=== PATIENT | male | born 1950 | race Caucasian/White ===

== ENCOUNTER 2018-10-28 01:31 | Outpatient (RCR) | payer MEDICARE, SELFPAY ==
[2018-10-14] VITALS (9 sets, daily range): BP systolic 107–132; BP diastolic 66–77; PULSE 59–75; RESP 18; TEMP 36.3–36.8; O2SAT 95–99
[2018-10-14] MEDS: methylPREDNISolone SUCC 125 MG VIAL 100 MG IV (08:32)
[2018-10-14] MEDS: diphenhydrAMINE 50 MG/ML VIAL IV (08:33)
[2018-10-14] MEDS: Normal Saline Flush 10 ML SYR IVP (08:34)
[2018-10-28 07:47] VITALS: BP 123/65; PULSE 75; RESP 18; TEMP 35.6; O2SAT 94
[2018-10-28] MEDS: methylPREDNISolone SUCC 125 MG VIAL 100 MG IV (07:56)
[2018-10-28] MEDS: diphenhydrAMINE 50 MG/ML VIAL IV (07:56)
[2018-10-28] MEDS: Normal Saline Flush 10 ML SYR IVP (07:57)
[2018-10-28 08:15] VITALS: BP 112/74; PULSE 58; RESP 18; TEMP 36; O2SAT 98
[2018-10-28 08:45] VITALS: BP 108/74; PULSE 59; RESP 18; TEMP 36; O2SAT 98
[2018-10-28 09:15] VITALS: BP 108/77; PULSE 57; RESP 18; TEMP 36; O2SAT 98
[2018-10-28 09:45] VITALS: BP 110/75; PULSE 60; RESP 18; TEMP 36; O2SAT 98
== END 2018-10-30 23:59 | disposition home or self-care (01) ==
LOC: INF 01:31
PROVIDERS: PCP Emergency Medicine; Visit Provider Internal Medicine
DX: M06.9 Rheumatoid arthritis, unspecified (principal)
CPT/HCPCS: 96365; 96366; J1200; J2930; J9310

== ENCOUNTER 2019-03-13 02:40 | Outpatient (CLI) | payer MEDICARE, SELFPAY ==
[2019-03-13 13:06] LABS: Calculated LDL 126; Cholesterol 219 mg/dL (50-200); HDL Cholesterol 77 mg/dL (40-60); Triglyceride 84 mg/dL (30-150)
[2019-03-16 10:38] LABS: PSA, Screening 4.3 ng/ml (0-4.5)
== END 2019-03-13 03:00 ==
PROVIDERS: PCP Emergency Medicine; Visit Provider Emergency Medicine
DX: I25.10 Atherosclerotic heart disease of native coronary artery without angina pectoris (principal); Z12.5 Encounter for screening for malignant neoplasm of prostate
CPT/HCPCS: 36415; 80061; 83721; 84153

== ENCOUNTER 2019-04-28 01:16 | Outpatient (RCR) | payer MEDICARE, SELFPAY ==
[2019-04-14] MEDS: methylPREDNISolone SUCC 125 MG VIAL 100 MG IV (08:07)
[2019-04-14] MEDS: diphenhydrAMINE 50 MG/ML VIAL IV (08:08)
[2019-04-14] MEDS: Normal Saline Flush 10 ML SYR IVP (08:08)
[2019-04-14 08:49] VITALS: BP 116/73; PULSE 53; RESP 16; TEMP 36.6; O2SAT 98
[2019-04-14 09:25] VITALS: BP 116/71; PULSE 54; RESP 18; TEMP 36.3; O2SAT 99
[2019-04-14 10:01] VITALS: BP 116/70; PULSE 52; RESP 16; TEMP 36.6; O2SAT 94
[2019-04-14 10:15] VITALS: BP 119/68; PULSE 55; RESP 18; TEMP 36.4; O2SAT 99
[2019-04-14 11:55] VITALS: BP 119/75; PULSE 49; RESP 16; TEMP 36.6; O2SAT 98
[2019-04-14 12:31] VITALS: BP 122/77; PULSE 61; RESP 20; TEMP 36.6; O2SAT 100
[2019-04-28 07:48] VITALS: BP 123/77; PULSE 52; RESP 18; TEMP 36.9; O2SAT 99
[2019-04-28] MEDS: methylPREDNISolone SUCC 125 MG VIAL 100 MG IV (07:49)
[2019-04-28] MEDS: Normal Saline Flush 10 ML SYR IVP (07:49)
[2019-04-28] MEDS: diphenhydrAMINE 50 MG/ML VIAL IV (07:49)
[2019-04-28 08:15] VITALS: BP 126/72; PULSE 57; RESP 18; TEMP 36.6; O2SAT 100
[2019-04-28 08:50] VITALS: BP 111/69; PULSE 54; RESP 18; TEMP 36.6; O2SAT 99
[2019-04-28 09:22] VITALS: BP 111/73; PULSE 54; RESP 18; TEMP 36.6; O2SAT 99
[2019-04-28 09:59] VITALS: BP 118/72; PULSE 59; RESP 19; TEMP 36.6; O2SAT 99
[2019-04-28 11:31] VITALS: BP 105/63; PULSE 57; RESP 18; TEMP 36.5; O2SAT 99
== END 2019-04-29 23:59 | disposition home or self-care (01) ==
LOC: INF 01:16
PROVIDERS: PCP Emergency Medicine; Visit Provider Internal Medicine
DX: M06.9 Rheumatoid arthritis, unspecified (principal)
CPT/HCPCS: 96365; 96366; 96374; J1200; J2930; J9310

== ENCOUNTER 2019-09-18 07:00 | Outpatient (CLI) | payer MEDICARE, SELFPAY | END 2019-09-18 07:20 | PROVIDERS: PCP Emergency Medicine; Visit Provider Emergency Medicine | DX: R97.20 Elevated prostate specific antigen [PSA] (principal) | CPT/HCPCS: 36415; 84153 ==

== ENCOUNTER 2019-10-09 02:39 | Outpatient (CLI) | payer MEDICARE, SELFPAY ==
[2019-10-12 12:34] LABS: PSA, Diagnostic 5.9 ng/mL (0.0-4.5)
== END 2019-10-09 02:59 ==
PROVIDERS: PCP Emergency Medicine; Visit Provider Emergency Medicine
DX: C61 Malignant neoplasm of prostate (principal); R97.20 Elevated prostate specific antigen [PSA]
CPT/HCPCS: 36415; 84153

== ENCOUNTER → 2019-10-26 10:41 | Outpatient (BNVA) | payer MEDICARE, SELFPAY | PROVIDERS: PCP Emergency Medicine; Referring Provider Emergency Medicine; Visit Provider Nurse Practitioner Gerontology | DX: R97.20 Elevated prostate specific antigen [PSA] (principal); K64.8 Other hemorrhoids | CPT/HCPCS: 99204; 99215 ==

== ENCOUNTER → 2019-10-30 13:21 | Outpatient (BNVA) | payer MEDICARE, SELFPAY | PROVIDERS: PCP Emergency Medicine; Referring Provider Emergency Medicine; Visit Provider Physical Therapy Assistant | DX: K64.8 Other hemorrhoids (principal); J44.9 Chronic obstructive pulmonary disease, unspecified; F17.210 Nicotine dependence, cigarettes, uncomplicated; I10 Essential (primary) hypertension | CPT/HCPCS: 99213 ==

== ENCOUNTER 2019-11-02 02:32 | Outpatient (CLI) | payer MEDICARE, SELFPAY ==
[2019-11-03 09:59] LABS: PSA, Diagnostic 4.6 ng/mL (0.0-4.5)
== END 2019-11-02 02:52 ==
PROVIDERS: PCP Emergency Medicine; Visit Provider Nurse Practitioner Gerontology
DX: R97.20 Elevated prostate specific antigen [PSA] (principal)
CPT/HCPCS: 36415; 84153

== ENCOUNTER 2019-11-10 06:16 | Day surgery (SDC) | payer MEDICARE, SELFPAY ==
[2019-11-10 06:41] VITALS: BP 103/67; PULSE 112; RESP 12; TEMP 36.5; O2SAT 100
--- NOTE | 2019-11-10 07:20 | NUR.NOTE ---
C/O dizziness when standing. Negative orthostatic BP (104 to 98 sbp). HR rapid and irregular. Anesthesia made aware and in to evaluate. rapid a-fib noted on monitor. EKG done. IV access placed. Transfer to ER room 3 in progress. Denies chest pain or discomfort. Nursing Note:
--- NOTE | 2019-11-10 07:32 | NUR.NOTE ---
Transferred to ER. Report given to Josefina. Ex- in attendance. Nursing Note:
--- NOTE | 2019-11-10 07:32 | PDOC.ANES ---
Date of service: 11/10/19 Time of Service: 07:32 Anesthesia Note Report Anesthesia Note: Patient in DSU for scheduled exam under anesthesia. He states he has had some dizziness over the last week, He feels this is from his new medication flomax. He denies chest pain or shortness of breath, however has had moments where he is very dizzy/presyncopal, sweaty. He states he has also been adjusting his metoprolol dose down from 100mg as prescribed. Today he is alert, oriented again with an isolated complaint of dizziness,worse when standing. 3 lead attached showing rapid variable heart rate, 12 Lead ordered which shows rapid heart rate 120-170, atrial fib or a-flutter with variable conduction as he has a history of a-flutter with previous cardioversions/ablation. His procedure is postponed, IV established and ED made aware. Pt. transported to ER 3 for further workup.
== END 2019-11-10 07:17 | disposition home or self-care (01) ==
LOC: SUR 06:17
PROVIDERS: PCP Emergency Medicine; Visit Provider Surgery
DX: K62.5 Hemorrhage of anus and rectum (principal); Z53.09 Procedure and treatment not carried out because of other contraindication; R00.0 Tachycardia, unspecified; Y66 Nonadministration of surgical and medical care
CPT/HCPCS: J2001; J2250

== ENCOUNTER 2019-11-10 07:17 | Emergency (ER) | payer MEDICARE, SELFPAY ==
[2019-11-10] VITALS (47 sets, daily range): BP systolic 92–129; BP diastolic 56–97; PULSE 55–158; RESP 5–30; TEMP 36.7–36.9; O2SAT 95–99
--- NOTE | 2019-11-10 07:36 | W.ED.GENAD ---
Discharge Plan Disposition Patient Disposition: HOME Condition: Stable Discharge Details Chief Complaint: Palpitatns Clinical Impression: Atrial fibrillation Primary Care Provider: Yonathan Boggs ED Provider: Allan Turpin Home Meds and New Rx's Prescriptions: Continued aspirin [Ecotrin Low Strength] 81 MG tablet,delayed release (DR/EC) 81 mg PO DAILY RF: 0 calcium carbonate-vitamin D3 [Caltrate with Vitamin D3] 1 EACH tablet 1 ea PO DAILY RF: 0 Rituxan 10 MG/1 ML concentrate 0 IV q6 months RF: 0 FLEXERIL 10 MG tablet 10 mg PO BID PRNQty: 60 RF: 6 prednisone 5 MG tablet 2.5 mg PO DAILY RF: 0 clonazepam [Klonopin] 0.5 MG tablet 0.5 mg PO HS PRN Qty: 60 RF: 0 glucosam-chond ix-gbfrzp-vr ac 1 EACH capsule 1 ea PO DAILY RF: 0 metoprolol tartrate 100 mg tablet 100 mg PO BID Qty: 180 RF: 4 tamsulosin [Flomax] 0.4 mg capsule 0.4 mg PO DAILY Qty: 90 RF: 3 cannabidiol 100 mg/mL Solution 15 mg PO DAILY RF: 0 Discharge Instructions Instructions: Atrial Fibrillation (ED) Additional Instructions: Please contact your primary care physician to arrange follow-up. Call today. Please follow-up with cardiology. Call today for an appointment. Return to the ER for any worsening or new concerning symptoms. Referrals: Yonathan Boggs DO [Primary Care Provider] - Hermann Paz MD [MD CONSULTING PHYSICIAN] - Discharge Data Discharge Date/Time-TO BE ENTERED AT DEPARTURE: 11/10/19 10:08 Medical Decision Making <Cesar Sen MD - Last Filed: 11/10/19 20:02> Patient presents from day surgery with rapid A. fib. He has history of atrial fibrillation status post ablation. He is on metoprolol but no blood thinners. Unknown how long he has been in A. fib at this point. Initial pressure good. Second pressure little low at systolic of 95. Ordered for 500 mL bolus of LR. Will give a dose of IV Lopressor as well as his morning oral Lopressor. Will check laboratory studies. Patient will be signed over to oncoming physician, Dr. Turpin. ECG Data Attestation: I personally reviewed and interpreted this ECG (s) as follows: Prior ECG tracings: not available for review Interpretation: Atrial fibrillation at a rate of 120. Normal axis and intervals. Nonspecific ST changes likely rate related. No acute ST elevation. <Allan Turpin MD - Last Filed: 11/17/19 21:57> 8:00 --care signed out by Dr. Sen with plan to follow-up on labs and reassess patient for disposition. Please see Dr. Sen's documentation regarding ED presentation and course. 9:00 --labs reviewed and nondiagnostic. Electrolytes within normal limits. TSH normal. Troponin normal. Repeat ECG was reviewed and interpreted by me: Sinus rhythm 60 bpm, normal axis, low voltage in limb leads, single T wave inversion noted lead III, nondiagnostic. Patient is no longer in rapid A. fib. Blood pressure stable. Patient feeling well. Plan will be for outpatient follow-up with cardiology and primary care physician. --I called and spoke with the patient's primary care physician Dr. Boggs and discussed ED presentation and course with him. He will schedule follow-up with the patient. Plan will be to continue low-dose aspirin given internal hemorrhoids and blood-tinged mucus discharge with concern for increased bleeding with anticoagulation at this point. Disposition decision was made weighing the risks and benefits of hospitalization versus outpatient treatment, the risk for further decompensation, and the patient's wishes. The patient was stable and requested discharge. Prior to discharge, my usual and customary return precautions were reviewed with the patient - this included follow-up instructions and reason to return to the emergency department if condition worsens, does not improve as expected, or other new concerns arise. HPI <Cesar Sen MD - Last Filed: 11/10/19 20:02> General Date/Time Provider Initiated Documentation: 11/10/19 07:29. Limitations to Documentation: no limitations. Information obtained by: patient and RN/MD. HPI Narrative: Patient is brought to us from day surgery for evaluation of atrial fibrillation. Patient has history of same but underwent ablation back in 2011 and has never really had issues. He came in today for exam under anesthesia for hemorrhoids. He did not take his metoprolol this morning. He was found to be in rapid A. fib. He denies having any type of chest pain or pressure. He denies shortness of breath. He has had lightheadedness on and off over the weekend and almost passed out this morning but figured it was from not eating and drinking since midnight. He is on metoprolol 100 mg twice a day. He is not on blood thinners. IV and EKG were done in day surgery before transport to ED. Related Data Home Medications Medication Instructions Recorded Confirmed aspirin [Ecotrin Low Strength] 81 mg PO DAILY tab-cap 12/04/12 11/11/19 calcium carbonate-vitamin D3 1 ea PO DAILY 12/04/12 11/11/19 [Caltrate with Vitamin D3] Rituxan 0 IV q6 months vial 07/31/13 11/11/19 prednisone 2.5 mg PO DAILY tab-cap 10/21/15 11/11/19 clonazepam [Klonopin] 0.5 mg PO HS PRN #60 tab 08/02/16 11/11/19 glucosam-chond yz-ozaghe-mo ac 1 ea PO DAILY 02/05/18 11/11/19 metoprolol tartrate 100 mg tablet 100 mg PO BID #180 tab-cap 08/19/18 11/11/19 tamsulosin 0.4 mg capsule 0.4 mg PO DAILY #90 cap 11/03/19 11/11/19 cannabidiol 15 mg PO DAILY 11/06/19 11/11/19 Previous Rx's Medication Instructions Recorded metoprolol tartrate 100 mg tablet 100 mg PO BID #180 tab-cap 08/19/18 tamsulosin 0.4 mg capsule 0.4 mg PO DAILY #90 cap 11/03/19 Allergies Allergy/AdvReac Type Severity Reaction Status Date / Time terazosin AdvReac Intermediate Dizziness/L Verified 11/11/19 10:20 ightheade lisinopril AdvReac Mild COUGH Verified 11/11/19 10:20 atorvastatin AdvReac Unknown ?DIARRHEA Verified 11/11/19 10:20 Serotonin 5HT-3 Antagonists AdvReac Unknown Verified 11/11/19 10:20 sulfasalazine AdvReac Made RA Verified 11/11/19 10:20 worse General Stated Complaint: Palpitatns BETTY: 2 Review of Systems <Cesar Sen MD - Last Filed: 11/10/19 20:02> Narrative: 07/13 Review of Systems completed and is negative except as stated above in HPI (Systems reviewed: Const, Eyes, ENT, Resp, CV, GI, , MSK, Skin, Neuro) PFSH <Cesar Sen MD - Last Filed: 11/10/19 20:02> Medical History Alcohol abuse (Acute) heavy alcohol use-patient denies alcohol abuse. Atrial flutter (Acute) 01/07 STRESS TEST NEG 2011;Ablation BPH (benign prostatic hyperplasia) (Acute 03/29/15) Cervical radicular pain (Acute 05/21/14) Severe DJD with multilevel foraminal narrowing MRI 05/13 Chronic obstructive pulmonary disease (Acute 05/29/16) Patient denies having COPD. Chronic pain disorder (Acute 05/15/12) 10/08/17; CONTROLLED SUBSTANCE AGREEMENT 01/27/19 Contract no longer needed/cancelled per TB-kb Coronary atherosclerosis of [place] coronary vessel (Acute) a.STEMI (inf) b. RCA stent c. a.flutter Depressive disorder (Acute) situational Essential hypertension (Acute 07/30/13) Patient denies hx of HTN. States he's on Metoprolol for rate control. Hearing loss (Acute) A.S. Hx TIA/stroke w/o resid (Acute) Hyperlipidemia (Acute) Migraine with visual aura (Acute 03/29/15) Rheumatoid arthritis (Acute) Smoker (Acute) quit 09/04 Statin intolerance (Acute) Unilateral inguinal hernia (Acute) right Surgical History Colonoscopy - MAC 06/03; neg Hx of heart artery stent (Chronic) Stent 2006 Ablation 2011 rectal fistula repair vasc revision Vasectomy Family History (Updated 10/01/19 @ 13:48 by Dangelo Webb) Mother No problems noted. Father No problems noted. Brother No problems noted. Brother No problems noted. Brother No problems noted. Daughter No problems noted. Maternal Grandfather No problems noted. Paternal Grandfather No problems noted. Maternal Grandfather No problems noted. Paternal Grandfather No problems noted. Social History (Updated 11/11/19 @ 10:24 by Sarah Freedman RN) Smoking/Tobacco Use Status: Current-Occasional Tobacco Type: cigarettes Quit status: considering quitting Second Hand Exposure: Yes Alcohol Intake: current Alcohol Intake frequency: 3 or more drinks per day Alcohol type: beer Drug use: Rarely Substance use type: marijuana Caregiver/Support person: Yes Household members: none Housing: apartment Communication Needs: Hard of Hearing Do you need help understanding health information?: Never Pets and animals: No Sexually active: No Do you think of yourself as: straight/heterosexual Current gender identity: male What is your relationship status?: How often do you talk on the phone with friends or family?: decline to answer How often do you get together with friends or relatives?: decline to answer How often do you attend jainism or buddhist services?: decline to answer Do you belong to any clubs or organized social groups?: decline to answer Panel score (0-1 are the most socially isolated patients): 0 What type of physical activity do you participate in: none Chary/Zoroastrian: Declined Do you feel safe at home: Yes Do you feel safe in your relationship?: Yes Exam <Cesar Sen MD - Last Filed: 11/10/19 20:02> Narrative Exam Narrative: Vitals: Afebrile. Rapid heart rate with otherwise normal vitals and room air pulse oximetry. Const: WDWN male in NAD. HEENT: NC/AT. Normal facial exam. Eyes: Normal conjunctiva and sclera. Neck: Supple. Trachea midline. Lungs: Normal respiratory effort. Lungs are clear. Cor: IRR/IRR, tachy without murmur/gallop. Good radial pulses. GI: Soft. NT/ND. No guarding or rebound. Neuro: A+O x 3. Normal speech, mentation, gait. Cranial nerves II - XII grossly intact. No gross motor or sensory deficit. Ext: No C/C/E. Skin: Warm and dry without rash. Course <Cesar Sen MD - Last Filed: 11/10/19 20:02> Vital Signs Vital signs: Vital Signs Temperature 98.1 F 11/10/19 07:28 Pulse 141 H 11/10/19 07:28 Respiratory Rate 9 L 11/10/19 07:28 Blood Pressure 115/85 11/10/19 07:28 Pulse Oximetry 99 11/10/19 07:28 Temperature 98.1 F 11/10/19 07:28 Temperature Source Temporal Artery Scan 11/10/19 07:28 Pulse 141 H 11/10/19 07:28 Respiratory Rate 9 L 11/10/19 07:28 Respiratory Effort Non-Labored 11/10/19 07:32 Blood Pressure 115/85 11/10/19 07:28 Blood Pressure Position Sitting 11/10/19 07:28 Pulse Oximetry 99 11/10/19 07:28 Oxygen Delivery Method Room Air 11/10/19 07:28 Oxygen Flow Rate 0 11/10/19 07:28 Pain Level 0 11/10/19 07:28 Sign Out <Cesar Sen MD - Last Filed: 11/10/19 20:02> Sign Out Data: Sign Out Comment: Pending laboratory studies and response to metoprolol. Last updated by Cesar Sen MD at 11/10/19 08:00
[2019-11-10] MEDS: Metoprolol 50 MG TAB 100 MG PO (07:42)
[2019-11-10] MEDS: Lactated Ringers 500 ML IV (07:43)
[2019-11-10] MEDS: Metoprolol 5 MG/5 ML VIAL IVP (07:44)
[2019-11-10 08:09] LABS: Abs Immature Grans 0.04 k/cumm (0.0-0.09); Absolute Basophil Count 0.02 k/cumm (0.0-0.2); Absolute Eosinophil Count 0.07 k/cumm (0.0-0.7); Absolute Lymphocyte Count 1.67 k/cumm (1.2-3.4); Absolute Monocyte Count 1.21 k/cumm (0.11-0.7); Absolute Neutrophil Count 6.32 k/cumm (1.2-6.7); Basophils % 0.2; Eosinophils % 0.8; HCT 44.6 % (40.0-50.0); HGB 15.7 g/dL (13.5-17.5); Immature Grans % 0.4 %; Lymphocytes % 17.9; Mean Corp. HGB Concentration 35.2 g/dL (32.0-36.0); Mean Corpuscular Hemoglobin 32.9 pg (27.0-33.0); Mean Corpuscular Volume 93.5 fL (80-95); Mean Platelet Volume 9.6 fL (8.0-11.0); Neutrophils % 67.7; Platelet Count 300 x1000/uL (130-400); RBC 4.77 m/cumm (4.50-6.00); RBC Distribution Width 13.3 % (11.8-14.1); White Blood Cell Count 9.33 k/cumm (4.4-10.8)
[2019-11-10 08:29] LABS: ALT 34 U/L (16-63); AST 21 U/L (15-37); Albumin 3.4 g/dL (3.4-5.0); Alkaline Phosphatase 59 U/L (46-116); Anion Gap 9.5 mmol/L (3-11); BUN 17 mg/dL (7-18); Bilirubin, Total 0.5 mg/dL (0.2-1.0); CO2 27.5 mmol/L (21.0-32.0); CREATININE 1.18 mg/dL (0.70-1.30); Calcium 8.7 mg/dL (8.5-10.1); Chloride 106 mmol/L (98-107); Glucose 107 mg/dL (74-106); Magnesium 1.8 mg/dL (1.8-2.4); Potassium 4.2 mmol/L (3.5-5.1); Sodium 143 mmol/L (136-145); Total Protein 6.1 g/dL (6.4-8.2)
[2019-11-10 08:30] LABS: INR 0.9 (0.9-1.1); PTT Activated 21.6 sec (21.0-31.4); Prothrombin Time 9.5 sec (9.3-11.0)
[2019-11-10 08:33] LABS: Troponin I < 0.05 ng/Ml (<0.06)
[2019-11-10 08:37] LABS: TSH (W/Ref FT4) 3.08 uIU/mL (0.36-3.74)
[2019-11-10] MEDS: Aspirin 81 MG CHEW CH (09:08)
--- NOTE | 2019-11-10 10:39 | NUR.NOTE ---
Referral faxed to patient PCP Dr. Boggs and [facility] Dr. Paz.Nursing Note:
== END 2019-11-10 10:08 | disposition home or self-care (01) ==
PROVIDERS: Emergency Medicine; Emergency Provider Student in an Organized Health Care Education/Training Program; PCP Emergency Medicine
DX: I48.91 Unspecified atrial fibrillation; K64.8 Other hemorrhoids; J44.9 Chronic obstructive pulmonary disease, unspecified; F17.210 Nicotine dependence, cigarettes, uncomplicated; I10 Essential (primary) hypertension
CPT/HCPCS: 36415; 80053; 93005; 96361; 96374; 99284; 83735; 84443; 84484; 85025; 85610; 85730; 93010; 99285

== ENCOUNTER 2019-11-11 09:59 | Outpatient (CLI) | payer MEDICARE, SELFPAY | END 2019-11-11 10:19 | PROVIDERS: PCP Emergency Medicine; Visit Provider Internal Medicine Cardiovascular Disease | DX: I48.0 Paroxysmal atrial fibrillation (principal); I25.10 Atherosclerotic heart disease of native coronary artery without angina pectoris; I10 Essential (primary) hypertension | CPT/HCPCS: 99204; 99215 ==

== ENCOUNTER → 2019-11-23 15:21 | Outpatient (BNVA) | payer MEDICARE, SELFPAY | PROVIDERS: PCP Emergency Medicine; Referring Provider Emergency Medicine; Visit Provider Nurse Practitioner Gerontology | DX: R97.20 Elevated prostate specific antigen [PSA] (principal); N40.1 Benign prostatic hyperplasia with lower urinary tract symptoms; R30.0 Dysuria | CPT/HCPCS: 81003; 99213 ==

== ENCOUNTER 2019-12-24 01:25 | Outpatient (RCR) | payer MEDICARE, SELFPAY ==
[2019-12-24] VITALS (9 sets, daily range): BP systolic 142–165; BP diastolic 77–90; PULSE 45–63; RESP 18–19; TEMP 36–36.6; O2SAT 96–99
[2019-12-24] MEDS: methylPREDNISolone SUCC 125 MG VIAL 100 MG IVP (08:47)
[2019-12-24] MEDS: Normal Saline Flush 10 ML SYR IVP (08:48)
[2019-12-24] MEDS: diphenhydrAMINE 25 MG CAP PO (08:48)
== END 2019-12-29 23:59 | disposition home or self-care (01) ==
LOC: INF 01:25
PROVIDERS: PCP Emergency Medicine; Visit Provider Internal Medicine
DX: M06.9 Rheumatoid arthritis, unspecified (principal)
CPT/HCPCS: 96365; 96366; J2930; J9312

== ENCOUNTER → 2019-12-30 11:25 | Outpatient (BNVA) | payer MEDICARE, SELFPAY | PROVIDERS: PCP Emergency Medicine; Referring Provider Emergency Medicine; Visit Provider Nurse Practitioner Gerontology | DX: R97.20 Elevated prostate specific antigen [PSA] (principal); N40.0 Benign prostatic hyperplasia without lower urinary tract symptoms | CPT/HCPCS: 99213; 99442 ==

== ENCOUNTER 2020-01-07 03:17 | Outpatient (RCR) | payer MEDICARE, SELFPAY ==
[2020-01-07 08:43] VITALS: BP 121/72; PULSE 64; RESP 19; TEMP 36.5; O2SAT 95
[2020-01-07] MEDS: Normal Saline Flush 10 ML SYR IVP (08:50)
[2020-01-07] MEDS: diphenhydrAMINE 25 MG CAP PO (08:50)
[2020-01-07] MEDS: methylPREDNISolone SUCC 125 MG VIAL 100 MG IV (08:50)
[2020-01-07 09:04] VITALS: BP 115/75; PULSE 53; RESP 19; TEMP 37; O2SAT 97
[2020-01-07 09:34] VITALS: BP 108/70; PULSE 52; RESP 18; TEMP 37; O2SAT 99
[2020-01-07 10:04] VITALS: BP 105/66; PULSE 46; RESP 19; TEMP 36.4; O2SAT 99
== END 2020-01-28 23:59 | disposition home or self-care (01) ==
LOC: INF 03:17
PROVIDERS: PCP Emergency Medicine; Visit Provider Internal Medicine
DX: M06.9 Rheumatoid arthritis, unspecified (principal)
CPT/HCPCS: 96365; 96366; J2930; J9312

== ENCOUNTER 2020-01-20 09:27 | Outpatient (CLI) | payer MEDICARE, SELFPAY ==
[2020-01-22 08:50] LABS: COVID-19 RT-PCR Result Negative
== END 2020-01-20 09:47 ==
PROVIDERS: PCP Emergency Medicine; Visit Provider Surgery
DX: Z11.59 Encounter for screening for other viral diseases (principal); Z01.818 Encounter for other preprocedural examination
CPT/HCPCS: U0003

== ENCOUNTER → 2020-01-22 11:01 | Outpatient (BNVA) | payer MEDICARE, SELFPAY | PROVIDERS: PCP Emergency Medicine; Referring Provider Emergency Medicine; Visit Provider Surgery | DX: K62.89 Other specified diseases of anus and rectum (principal); J44.9 Chronic obstructive pulmonary disease, unspecified; F17.210 Nicotine dependence, cigarettes, uncomplicated | CPT/HCPCS: 99213 ==

== ENCOUNTER 2020-01-27 06:32 | Day surgery (SDC) | payer MEDICARE, SELFPAY ==
[2020-01-27 06:51] VITALS: BP 118/78; PULSE 58; RESP 18; TEMP 36.4
--- NOTE | 2020-01-27 06:51 | ROE_ITS ---
Date of service: 01/27/20 Time of Service: 08:22 Operative Note Operative Note DATE OF PROCEDURE: 01/27/20 PRE-OP DIAGNOSIS: Rectal pain and bleeding PROCEDURE: 1. Exam under anesthesia 2. Biopsy of rectal mass SURGEON: Payton Mckenzie ANESTHESIA: spinal ESTIMATED BLOOD LOSS: 5 PATHOLOGY: other (biopsy of rectal mass) COMPLICATIONS: None Patient was transported to: same day Patient's condition: stable Implants: None Indications: Mr. Johnson is a pleasant 69 year old male with a PMHx significant for internal hemorrhoids and a anal fistula who has been having increased pain and rectal bleeding for a few months now. We unfortunately had to postpone his surgery due to the COVID-19 Pandemic. He is now having increased pain and bleeding. He may also have a new fistula. He has an extensive Cardiac history with past AR (s/p cath and stents) as well as flutter s/p ablation. He now has Paroxismal A-fib. He is being followed by Cardiology. Recommended Exam under anesthesia with internal hemorrhoidectomy and possible fistulotomy Anesthesia discussed- recommend spinal and MAC as well as local with exparel/bupivocaine mix. Post-operative pain control with Lidocaine ointment, tylenol, ibuprofen and a few Oxycodons for 3 days. Sitz baths post-operatively as well. Risks, benefits, complications of the procedure were reviewed with him. Complications include but are not limited to bleeding, infection which can be severe and life-threatening. Injury to rectal sphincter with resulting incontinence, recurrence of the internal hemorrhoids and fistula and adverse reaction to medications were all discussed with him. Questions were entertained and answered to his satisfaction and he wished to proceed. No guarantees were given or implied Findings: Friable rectal mass at 5-7 o'clock. Measured about 2 cm Small external hemorrhoids Procedure Description: After informed consent was obtained the patient was taken to the operating room. Monitors were applied and a time out was done. The patients name, date of , procedure, allergies to medications and metal in their body was reviewed. A spinal anesthetic was done. He was placed in a prone position on the operating room table. The patient was then sedated. Tape was applied to his buttocks and his buttocks were . The area was then prepped with iodine. Exparel mixed 50/50 with 0.25% Bupivocaine was then injected around the rectum. Next a rectal exam was done. External exam revealed small hemorrhoids. Internal exam revealed a normal sphincter tone. Hard mass was palpated. The Anoscope was inserted and a 2.5 to 3 cm friable and hard mass was noted. It was located between 5 and 7 o'clock. The Ligasure was used to get a piece of the mass and sent for pathology. Some small internal hemorrhoids were noted as well There was some bleeding noted from the friable tissue. The Anoscope was removed and the rest of the exparel/bupivocaine mixture was injected circumferentially around the rectum. The area was cleaned and dried. The tape was removed. The patient was worked up and transferred to the [facility] and taken back to [facility] in stable condition. There were no immediate complications and the patient tolerated the procedure note.
--- NOTE | 2020-01-27 06:56 | W.PM.DSUDISC ---
Discharge Plan Disposition Patient Disposition: HOME Condition: Fair Discharge Details Reason For Visit: Exam under anesthesia, hemorrhoidectomy Attending Provider: Payton Mckenzie Primary Care Provider: Yonathan Boggs Home Meds and New Rx's Prescriptions: New lidocaine HCl 2 % jelly 1 applic TP QD-TID PRN (Reason: pain) Qty: 30 RF: 1 acetaminophen [Tylenol] 325 mg tablet 650 mg PO Q6H PRN (Reason: pain) Qty: 30 RF: 0 oxycodone 5 mg tablet 5 mg PO Q6H PRN (Reason: pain) Qty: 20 RF: 0 Continued naproxen 500 mg tablet 500 mg PO BID PRN (Reason: pain) Qty: 60 RF: 0 aspirin [Ecotrin Low Strength] 81 MG tablet,delayed release (DR/EC) 81 mg PO .EVERY OTHER DAY RF: 0 calcium carbonate-vitamin D3 [Caltrate with Vitamin D3] 1 EACH tablet 1 ea PO DAILY RF: 0 Rituxan 10 MG/1 ML concentrate 0 IV q6 months RF: 0 FLEXERIL 10 MG tablet 10 mg PO BID PRNQty: 60 RF: 6 prednisone 5 MG tablet 2.5 mg PO DAILY RF: 0 glucosam-chond kr-kfsdou-lm ac 1 EACH capsule 1 ea PO DAILY RF: 0 metoprolol tartrate 100 mg tablet 100 mg PO BID Qty: 180 RF: 4 cannabidiol 100 mg/mL solution 15 mg PO DAILY PRNRF: 0 clonazepam [Klonopin] 0.5 mg tablet 0.5 mg PO HS PRN PRNRF: 0 Discharge Instructions Instructions: Sitz Bath (GEN) Additional Instructions: Activity at Home after surgery: 1. Make sure you walk outside at least 4 times per day 2. You should be able to climb a flight of stairs 3. No driving while in pain or taking pain medications 4. No strenuous activity or heavy lifting for 2 weeks Diet, Nutrition, & wound healin. Avoid alcohol until after you are recovered from your surgery 2. Make sure to eat plenty of lean protein (meat, fish, eggs, cottage cheese, beans) 3. Eat a variety of fruits and vegetables. Eat plenty of high fiber foods to avoid constipation. 4. Drink plenty of liquids to stay hydrated and avoid constipation Pain Medications: 1. Tylenol 650 mg every 6 hours as needed 2. Naproxen 500 mg 2 x a day 3. Oxycodon 5 mg every 6 hours as needed for severe pain 4. Lidocaine ointment- apply small amount to rectal area 3 to 4 times a day as needed For Constipation: 1. MiraLax daily as needed for constipation Other: 1. You may shower daily. Do not scrub the incisions 2. Sitz baths every 4 hours as needed. Wound Care: 1. Keep area clean with sitz bath Please call our office if you develop: 1. Fevers >101.5 2. Nausea or Vomiting 3. Worsening pain 4. Redness and thick discharge from the wounds If after hours please call the Hospital at and ask to speak to the on-call surgeon Findings: There was a small rectal mass that is bleeding. I removed most of it for diagnoses. This may be cancerous. I will see you next week on Saturday and I should have the results and then we will discuss further treatment. Regardless of the diagnoses you will need a colonoscopy in the next 2 weeks. Referrals: Payton Mckenzie MD [ [facility] STAFF PHYSICIAN] - 02/01/20 8:00 am Activity:: Activity as Tolerated Diet:: As Tolerated Discharge Orders Discharge Orders: Discharge Order (Routine); Ordered 01/27/20 Ordered By: Payton Mckenzie DS: Diagnosis Discharge Diagnosis (1) External hemorrhoids: Status: Acute (2) Rectal mass: Status: Acute
[2020-01-27] MEDS: Celecoxib 200 MG CAP PO (07:10)
[2020-01-27] MEDS: Acetaminophen 500 MG TAB 1000 MG PO (07:10)
[2020-01-27] MEDS: Lactated Ringers 1,000 ML 80 ML IV (07:15)
[2020-01-27] MEDS: metroNIDAZOLE 500 MG/100 ML BAG 100 MG IVPB (07:35)
--- NOTE | 2020-01-27 08:10 | SOFT_PTH ---
PATIENT: Yonathan Johnson LOC: [facility] U#:[id number] AGE/SX: 69/M ROOM: RE01/27/[address]: Payton Mckenzie MD : 1950 BED: DIS: 01/27/2020 SPEC #: [id number] RECD: 01/27/20 09:12 STATUS: ANTON REQ #: [id number] EMORY: 01/27/20 08:[address]: Payton Mckenzie DEPT: Surgical Specimen RECD BY: Ari Friedman ENTERED: 01/27/20 09:22 SP TYPE: SOFT OTHR DR: Yonathan Boggs DO Tissues: 1 - BIOPSY BOWEL Procedures: GROSS AND MICRO LEVEL 4 IMMUNOPEROXIDASE STAIN Comments: [id number]
[2020-01-27] MEDS: Bupivacaine 0.5% Pres-Free 30 ML VIAL (08:13)
[2020-01-27 08:54] VITALS: BP 92/55; PULSE 59; RESP 16; TEMP 36.5; O2SAT 95
[2020-01-27 09:50] VITALS: BP 94/55; PULSE 60
== END 2020-01-27 11:16 | disposition home or self-care (01) ==
PROVIDERS: PCP Emergency Medicine; Visit Provider Surgery
PROC: (CPT 45305; principal; 2020-01-27 07:30)
DX: C21.8 Malignant neoplasm of overlapping sites of rectum, anus and anal canal (principal); K62.89 Other specified diseases of anus and rectum; K62.5 Hemorrhage of anus and rectum; K64.8 Other hemorrhoids; I25.10 Atherosclerotic heart disease of native coronary artery without angina pectoris; I25.2 Old myocardial infarction; I48.0 Paroxysmal atrial fibrillation; J44.9 Chronic obstructive pulmonary disease, unspecified; R97.20 Elevated prostate specific antigen [PSA]; Z95.5 Presence of coronary angioplasty implant and graft
CPT/HCPCS: 45305; 88305; 88307; 88361; J2250; J2405; J2704; J3010

== ENCOUNTER → 2020-02-01 08:00 | Outpatient (BNVA) | payer MEDICARE, SELFPAY | PROVIDERS: PCP Emergency Medicine; Referring Provider Emergency Medicine; Visit Provider Surgery | DX: C20 Malignant neoplasm of rectum (principal); J44.9 Chronic obstructive pulmonary disease, unspecified; I10 Essential (primary) hypertension ==

== ENCOUNTER 2020-02-03 02:25 | Outpatient (CLI) | payer MEDICARE, SELFPAY ==
[2020-02-03 10:40] LABS: Abs Immature Grans 0.03 k/cumm (0.0-0.09); Absolute Basophil Count 0.02 k/cumm (0.0-0.2); Absolute Eosinophil Count 0.11 k/cumm (0.0-0.7); Absolute Lymphocyte Count 2.12 k/cumm (1.2-3.4); Basophils % 0.2; Eosinophils % 1.1; HCT 42.1 % (40.0-50.0); HGB 14.5 g/dL (13.5-17.5); Immature Grans % 0.3 %; Lymphocytes % 21.9; Mean Corp. HGB Concentration 34.4 g/dL (32.0-36.0); Mean Corpuscular Hemoglobin 32.9 pg (27.0-33.0); Mean Corpuscular Volume 95.5 fL (80-95); Mean Platelet Volume 9.1 fL (8.0-11.0); Monocytes % 14.5; Platelet Count 397 x1000/uL (130-400); RBC 4.41 m/cumm (4.50-6.00); RBC Distribution Width 13.9 % (11.8-14.1); White Blood Cell Count 9.68 k/cumm (4.4-10.8)
[2020-02-03 11:30] LABS: ALT 24 U/L (16-63); AST 20 U/L (15-37); Albumin 3.3 g/dL (3.4-5.0); Alkaline Phosphatase 66 U/L (46-116); Anion Gap 7.1 mmol/L (3-11); BUN 16 mg/dL (7-18); Bilirubin, Total 0.4 mg/dL (0.2-1.0); CO2 28.9 mmol/L (21.0-32.0); CREATININE 1.08 mg/dL (0.70-1.30); Calcium 8.7 mg/dL (8.5-10.1); Chloride 101 mmol/L (98-107); Glucose 78 mg/dL (74-106); Potassium 4.6 mmol/L (3.5-5.1); Sodium 137 mmol/L (136-145); Total Protein 5.7 g/dL (6.4-8.2)
[2020-02-04 09:56] LABS: CEA 2.6 ng/mL (See Note)
== END 2020-02-03 02:45 ==
PROVIDERS: PCP Emergency Medicine; Visit Provider Surgery
DX: C20 Malignant neoplasm of rectum (principal)
CPT/HCPCS: 36415; 80053; 82378; 85025

== ENCOUNTER 2020-02-04 01:51 | Outpatient (CLI) | payer MEDICARE, SELFPAY ==
[2020-02-04] MEDS: Omnipaque 350 MG/ML 50 ML BTL IJ (07:25)
[2020-02-04] MEDS: Breeza Beverage 473 ML BTL PO ×2 (07:26)
[2020-02-04] MEDS: Normal Saline - Diluent 50 ML VIAL IV (08:27)
[2020-02-04] MEDS: Omnipaque 350 MG/ML 100 ML BTL IJ (08:28)
[2020-02-04] MEDS: Normal Saline Flush 10 ML SYR IVP (08:29)
--- NOTE | 2020-02-04 09:00 | DI.CT_ITS ---
EXAM: CT CHEST/ABD/PEL W CLINICAL HISTORY: rectal cancer,c20. TECHNIQUE: Imaging Protocol: Axial computed tomography images with coronal and sagittal reformatted images were created and reviewed CONTRAST MATERIAL: Intravenous: Omnipaque 350 Contrast volume:100 ml Oral: yes COMPARISON: CT CHEST FOR PULMONARY EMBOLUS from 08/29/2011 CR from 05/29/2016 FINDINGS: CHEST: Thyroid: Unremarkable where visualized Tracheobronchial tree: Patent where visualized. Mediastinum and Negin: No dominant adenopathy or fluid collection. Pulmonary parenchyma: No consolidation or dominant measurable mass. . Pleura: No effusion or pneumothorax. Lymph nodes: Within normal limits. Aorta: Thoracic portion non-dilated. Mild to moderate calcification. Heart: Within normal limits in size. Moderate coronary artery calcification. Bones: Degenerative disc changes. No destructive bony lesions. ABDOMEN: Liver: Normal density. Several cysts are seen. There is a small enhancing lesion visible on the art erial phase images near the dome of the liver which appears unchanged when compared with previous [facility] CT, likely representing a hemangioma. No suspicious mass. Gallbladder and biliary tract: No radiodense calculus or dilation. Pancreas: Normal density, no abnormal calcifications or inflammatory process. Spleen: Normal. Kidneys: Normal size, contour and axis. No radiodense stones or obstructive uropathy. No masses seen. Parapelvic renal cysts on the left. Adrenal glands: No masses seen. Aorta: Abdominal portion non-dilated. Moderate to severe calcification. Lymph nodes: Within normal limits. PELVIS: Bladder: Mild distention, mild wall thickening. Bowel: A rectal mass is seen measuring roughly 2 cm. No obstruction. Normal quantity of stool. Appe ndix normal. Small bowel nondistended. Peritoneal cavity: No ascites, collection or mesenteric inflammatory response. Bones: Advanced degenerative disc changes with vacuum phenomenon and prominent endplate osteophytes. Reproductive organs: Prostate within normal limits. Vasectomy clips. IMPRESSION: Rectal mass. No evidence of metastatic disease in the chest abdomen or pelvis.. RADIATION DOSE DELIVERED: Total DLP DATA REPOSITORY: All CT scans at this facility are submitted to the National Radiology Data Registry (NRDR) Dose Index Registry (DIR) with the [employer] (ACR). RADIATION OPTIMIZATION: All CT scans at this facility use at least one of these dose optimization te chniques: automated exposure control; mA and/or kV adjustment per patient size (includes targeted exa ms where dose is matched to clinical indication); or iterative reconstruction.
== END 2020-02-04 02:11 ==
PROVIDERS: PCP Emergency Medicine; Visit Provider Surgery
DX: C20 Malignant neoplasm of rectum (principal); K76.89 Other specified diseases of liver; N32.89 Other specified disorders of bladder; Z12.89 Encounter for screening for malignant neoplasm of other sites
CPT/HCPCS: 74177; 71260; J3490; Q9967

== ENCOUNTER → 2020-03-07 13:44 | Outpatient (BNVA) | payer MEDICARE, SELFPAY | PROVIDERS: PCP Emergency Medicine; Referring Provider Emergency Medicine; Visit Provider Nurse Practitioner Gerontology | DX: C20 Malignant neoplasm of rectum (principal); R97.20 Elevated prostate specific antigen [PSA] | CPT/HCPCS: 99214; 99443 ==

== ENCOUNTER 2020-03-25 04:15 | Outpatient (RCR) | payer MEDICARE, SELFPAY ==
[2020-03-18 08:45] LABS: Absolute Basophil Count 0.01 k/cumm (0.0-0.2); Absolute Eosinophil Count 0.09 k/cumm (0.0-0.7); Absolute Lymphocyte Count 1.19 k/cumm (1.2-3.4); Absolute Monocyte Count 1.08 k/cumm (0.11-0.7); Absolute Neutrophil Count 3.25 k/cumm (1.2-6.7); Basophils % 0.2; Eosinophils % 1.6; HCT 43.9 % (40.0-50.0); HGB 15.4 g/dL (13.5-17.5); Lymphocytes % 21.2; Mean Corp. HGB Concentration 35.1 g/dL (32.0-36.0); Mean Corpuscular Hemoglobin 33.6 pg (27.0-33.0); Mean Corpuscular Volume 95.6 fL (80-95); Mean Platelet Volume 9.4 fL (8.0-11.0); Monocytes % 19.2; Neutrophils % 57.8; Platelet Count 327 x1000/uL (130-400); RBC 4.59 m/cumm (4.50-6.00); RBC Distribution Width 13.3 % (11.8-14.1); White Blood Cell Count 5.62 k/cumm (4.4-10.8)
[2020-03-18] MEDS: Normal Saline Flush 10 ML SYR IVP (09:03)
[2020-03-18 09:15] LABS: ALT 25 U/L (16-63); AST 21 U/L (15-37); Albumin 3.4 g/dL (3.4-5.0); Alkaline Phosphatase 79 U/L (46-116); Anion Gap 6.9 mmol/L (3-11); BUN 12 mg/dL (7-18); Bilirubin, Total 0.5 mg/dL (0.2-1.0); CO2 28.1 mmol/L (21.0-32.0); CREATININE 0.97 mg/dL (0.70-1.30); Calcium 8.5 mg/dL (8.5-10.1); Chloride 101 mmol/L (98-107); Glucose 93 mg/dL (74-106); Potassium 4.1 mmol/L (3.5-5.1); Sodium 136 mmol/L (136-145); Total Protein 6.3 g/dL (6.4-8.2)
[2020-03-21 10:25] LABS: CEA 3.8 ng/mL (See Note)
[2020-03-25 14:13] LABS: Abs Immature Grans 0.01 k/cumm (0.0-0.09); Absolute Basophil Count 0.01 k/cumm (0.0-0.2); Absolute Eosinophil Count 0.06 k/cumm (0.0-0.7); Absolute Lymphocyte Count 1.34 k/cumm (1.2-3.4); Absolute Monocyte Count 0.73 k/cumm (0.11-0.7); Absolute Neutrophil Count 5.81 k/cumm (1.2-6.7); Basophils % 0.1; Eosinophils % 0.8; HCT 41.2 % (40.0-50.0); HGB 14.7 g/dL (13.5-17.5); Immature Grans % 0.1 %; Lymphocytes % 16.8; Mean Corp. HGB Concentration 35.7 g/dL (32.0-36.0); Mean Corpuscular Hemoglobin 33.7 pg (27.0-33.0); Mean Corpuscular Volume 94.5 fL (80-95); Mean Platelet Volume 9.5 fL (8.0-11.0); Monocytes % 9.2; Platelet Count 324 x1000/uL (130-400); RBC 4.36 m/cumm (4.50-6.00); RBC Distribution Width 12.9 % (11.8-14.1); White Blood Cell Count 7.96 k/cumm (4.4-10.8)
[2020-03-25 14:26] LABS: ALT 26 U/L (16-63); AST 19 U/L (15-37); Albumin 3.4 g/dL (3.4-5.0); Alkaline Phosphatase 72 U/L (46-116); Anion Gap 9.2 mmol/L (3-11); BUN 15 mg/dL (7-18); Bilirubin, Total 0.4 mg/dL (0.2-1.0); CO2 22.8 mmol/L (21.0-32.0); CREATININE 0.96 mg/dL (0.70-1.30); Calcium 8.2 mg/dL (8.5-10.1); Chloride 101 mmol/L (98-107); Glucose 163 mg/dL (74-106); Sodium 133 mmol/L (136-145)
== END 2020-03-29 23:59 | disposition home or self-care (01) ==
LOC: INF 04:15
PROVIDERS: PCP Emergency Medicine; Visit Provider Internal Medicine Hematology & Oncology
DX: C20 Malignant neoplasm of rectum (principal)
CPT/HCPCS: 36415; 80053; 82378; 85025

== ENCOUNTER → 2020-04-05 12:54 | Outpatient (BNVA) | payer MEDICARE, SELFPAY | PROVIDERS: PCP Emergency Medicine; Referring Provider Emergency Medicine; Visit Provider Nurse Practitioner Gerontology | DX: R93.5 Abnormal findings on diagnostic imaging of other abdominal regions, including retroperitoneum (principal); C20 Malignant neoplasm of rectum; R97.20 Elevated prostate specific antigen [PSA] | CPT/HCPCS: 99214 ==

== ENCOUNTER 2020-04-28 01:56 | Outpatient (RCR) | payer MEDICARE, SELFPAY ==
[2020-03-31 09:03] LABS: Abs Immature Grans 0.02 k/cumm (0.0-0.09); Absolute Basophil Count 0.01 k/cumm (0.0-0.2); Absolute Eosinophil Count 0.08 k/cumm (0.0-0.7); Absolute Lymphocyte Count 0.95 k/cumm (1.2-3.4); Absolute Neutrophil Count 4.68 k/cumm (1.2-6.7); Basophils % 0.2; Eosinophils % 1.2; HGB 15.4 g/dL (13.5-17.5); Immature Grans % 0.3 %; Lymphocytes % 14.3; Mean Corpuscular Hemoglobin 33.8 pg (27.0-33.0); Mean Corpuscular Volume 96.5 fL (80-95); Mean Platelet Volume 9.1 fL (8.0-11.0); Monocytes % 13.6; Neutrophils % 70.4; Platelet Count 301 x1000/uL (130-400); RBC 4.56 m/cumm (4.50-6.00); RBC Distribution Width 13.7 % (11.8-14.1); White Blood Cell Count 6.64 k/cumm (4.4-10.8)
[2020-03-31 09:24] LABS: ALT 26 U/L (16-63); AST 18 U/L (15-37); Albumin 3.5 g/dL (3.4-5.0); Alkaline Phosphatase 71 U/L (46-116); Anion Gap 7.4 mmol/L (3-11); BUN 17 mg/dL (7-18); Bilirubin, Total 0.5 mg/dL (0.2-1.0); CO2 27.6 mmol/L (21.0-32.0); CREATININE 0.99 mg/dL (0.70-1.30); Calcium 8.4 mg/dL (8.5-10.1); Chloride 102 mmol/L (98-107); Glucose 102 mg/dL (74-106); Potassium 3.7 mmol/L (3.5-5.1); Sodium 137 mmol/L (136-145); Total Protein 6.1 g/dL (6.4-8.2)
[2020-04-08 10:54] LABS: Abs Immature Grans 0.02 k/cumm (0.0-0.09); Absolute Basophil Count 0.01 k/cumm (0.0-0.2); Absolute Lymphocyte Count 0.74 k/cumm (1.2-3.4); Absolute Neutrophil Count 4.54 k/cumm (1.2-6.7); Basophils % 0.2; Eosinophils % 1.6; HCT 41.6 % (40.0-50.0); HGB 14.7 g/dL (13.5-17.5); Immature Grans % 0.3 %; Lymphocytes % 11.7; Mean Corp. HGB Concentration 35.3 g/dL (32.0-36.0); Mean Corpuscular Hemoglobin 33.9 pg (27.0-33.0); Mean Corpuscular Volume 95.9 fL (80-95); Mean Platelet Volume 8.9 fL (8.0-11.0); Monocytes % 14.3; Neutrophils % 71.9; Platelet Count 206 x1000/uL (130-400); RBC 4.34 m/cumm (4.50-6.00); White Blood Cell Count 6.31 k/cumm (4.4-10.8)
[2020-04-08 11:07] LABS: ALT 23 U/L (16-63); AST 17 U/L (15-37); Albumin 3.1 g/dL (3.4-5.0); Alkaline Phosphatase 63 U/L (46-116); Anion Gap 10.4 mmol/L (3-11); BUN 11 mg/dL (7-18); Bilirubin, Total 0.4 mg/dL (0.2-1.0); CO2 22.6 mmol/L (21.0-32.0); CREATININE 0.99 mg/dL (0.70-1.30); Calcium 8.2 mg/dL (8.5-10.1); Chloride 103 mmol/L (98-107); Glucose 97 mg/dL (74-106); Potassium 3.6 mmol/L (3.5-5.1); Sodium 136 mmol/L (136-145); Total Protein 5.8 g/dL (6.4-8.2)
[2020-04-15 12:19] LABS: Abs Immature Grans 0.01 k/cumm (0.0-0.09); Absolute Eosinophil Count 0.05 k/cumm (0.0-0.7); Absolute Lymphocyte Count 0.69 k/cumm (1.2-3.4); Absolute Monocyte Count 0.74 k/cumm (0.11-0.7); Absolute Neutrophil Count 4.26 k/cumm (1.2-6.7); Eosinophils % 0.9; HCT 42.4 % (40.0-50.0); HGB 14.9 g/dL (13.5-17.5); Immature Grans % 0.2 %; Mean Corp. HGB Concentration 35.1 g/dL (32.0-36.0); Mean Corpuscular Hemoglobin 34.3 pg (27.0-33.0); Mean Corpuscular Volume 97.7 fL (80-95); Mean Platelet Volume 8.9 fL (8.0-11.0); Monocytes % 12.9; Platelet Count 225 x1000/uL (130-400); RBC 4.34 m/cumm (4.50-6.00); RBC Distribution Width 14.6 % (11.8-14.1); White Blood Cell Count 5.75 k/cumm (4.4-10.8)
[2020-04-15 12:31] LABS: ALT 24 U/L (16-63); AST 16 U/L (15-37); Albumin 3.2 g/dL (3.4-5.0); Alkaline Phosphatase 75 U/L (46-116); Anion Gap 5.9 mmol/L (3-11); BUN 12 mg/dL (7-18); Bilirubin, Total 0.3 mg/dL (0.2-1.0); CO2 29.1 mmol/L (21.0-32.0); CREATININE 0.92 mg/dL (0.70-1.30); Calcium 8.6 mg/dL (8.5-10.1); Chloride 103 mmol/L (98-107); Glucose 109 mg/dL (74-106); Potassium 4.2 mmol/L (3.5-5.1); Sodium 138 mmol/L (136-145); Total Protein 6.1 g/dL (6.4-8.2)
[2020-04-22 11:33] LABS: Abs Immature Grans 0.02 k/cumm (0.0-0.09); Absolute Basophil Count 0.01 k/cumm (0.0-0.2); Absolute Eosinophil Count 0.14 k/cumm (0.0-0.7); Absolute Lymphocyte Count 0.84 k/cumm (1.2-3.4); Absolute Neutrophil Count 4.42 k/cumm (1.2-6.7); Basophils % 0.1; Eosinophils % 2.1; HCT 42.7 % (40.0-50.0); Immature Grans % 0.3 %; Lymphocytes % 12.5; Mean Corp. HGB Concentration 35.1 g/dL (32.0-36.0); Mean Corpuscular Hemoglobin 33.9 pg (27.0-33.0); Mean Corpuscular Volume 96.6 fL (80-95); Mean Platelet Volume 8.8 fL (8.0-11.0); Monocytes % 19.3; Neutrophils % 65.7; Platelet Count 289 x1000/uL (130-400); RBC 4.42 m/cumm (4.50-6.00); RBC Distribution Width 14.9 % (11.8-14.1); White Blood Cell Count 6.73 k/cumm (4.4-10.8)
[2020-04-22 11:46] LABS: ALT 24 U/L (16-63); AST 20 U/L (15-37); Albumin 3.3 g/dL (3.4-5.0); Alkaline Phosphatase 75 U/L (46-116); Anion Gap 7.8 mmol/L (3-11); BUN 11 mg/dL (7-18); Bilirubin, Total 0.4 mg/dL (0.2-1.0); CO2 27.2 mmol/L (21.0-32.0); CREATININE 0.87 mg/dL (0.70-1.30); Calcium 8.6 mg/dL (8.5-10.1); Chloride 102 mmol/L (98-107); Glucose 101 mg/dL (74-106); Potassium 3.7 mmol/L (3.5-5.1); Sodium 137 mmol/L (136-145); Total Protein 6.3 g/dL (6.4-8.2)
[2020-04-28 10:47] LABS: Abs Immature Grans 0.03 10^3/uL (0.0-0.06); Absolute Basophil Count 0.03 10^3/uL (0.0-0.2); Absolute Eosinophil Count 0.13 10^3/uL (0.0-0.7); Absolute Lymphocyte Count 0.52 10^3/uL (1.2-3.4); Absolute Monocyte Count 1.02 10^3/uL (0.1-0.8); Absolute Neutrophil Count 3.74 10^3/uL (1.2-6.7); Basophils % 0.5; Eosinophils % 2.4; HCT 43.1 % (40.0-50.0); HGB 14.8 g/dL (13.5-17.5); Immature Grans % 0.5; Lymphocytes % 9.5; MCH 33.8 pg (27.0-33.0); MCHC 34.3 % (32.0-36.0); MCV 98.4 fL (80-95); MPV 8.8 fL (8.0-11.0); Monocytes % 18.6; Neutrophils % 68.5; Platelet Count 271 10^3/uL (130-400); RBC 4.38 10^6/uL (4.36-5.78); RDW 15.1 % (11.8-14.1); WBC 5.47 10^3/uL (4.4-10.8)
[2020-04-28 11:01] LABS: ALT 20 U/L (16-63); AST 16 U/L (15-37); Albumin 3.1 g/dL (3.4-5.0); Alkaline Phosphatase 74 U/L (46-116); Anion Gap 7.5 mmol/L (3-11); BUN 16 mg/dL (7-18); Bilirubin, Total 0.3 mg/dL (0.2-1.0); CO2 27.5 mmol/L (21.0-32.0); CREATININE 0.88 mg/dL (0.70-1.30); Calcium 8.5 mg/dL (8.5-10.1); Chloride 103 mmol/L (98-107); Glucose 100 mg/dL (74-106); Potassium 3.8 mmol/L (3.5-5.1); Sodium 138 mmol/L (136-145)
== END 2020-04-29 23:59 | disposition home or self-care (01) ==
LOC: INF 01:56
PROVIDERS: PCP Emergency Medicine; Visit Provider Internal Medicine Hematology & Oncology
DX: C20 Malignant neoplasm of rectum (principal)
CPT/HCPCS: 36415; 80053; 85025

== ENCOUNTER → 2020-05-10 10:52 | Outpatient (BNVA) | payer MEDICARE, SELFPAY | PROVIDERS: PCP Emergency Medicine; Referring Provider Emergency Medicine; Visit Provider Internal Medicine Cardiovascular Disease | DX: I25.10 Atherosclerotic heart disease of native coronary artery without angina pectoris (principal); I48.0 Paroxysmal atrial fibrillation | CPT/HCPCS: 99214 ==

== ENCOUNTER 2020-05-13 05:28 | Outpatient (RCR) | payer MEDICARE, SELFPAY ==
[2020-05-13 10:11] LABS: Abs Immature Grans 0.09 10^3/uL (0.0-0.06); Absolute Basophil Count 0.04 10^3/uL (0.0-0.2); Absolute Eosinophil Count 0.08 10^3/uL (0.0-0.7); Absolute Lymphocyte Count 0.44 10^3/uL (1.2-3.4); Absolute Monocyte Count 0.97 10^3/uL (0.1-0.8); Absolute Neutrophil Count 8.22 10^3/uL (1.2-6.7); Basophils % 0.4; Eosinophils % 0.8; HCT 42.6 % (40.0-50.0); HGB 14.7 g/dL (13.5-17.5); Immature Grans % 0.9; Lymphocytes % 4.5; MCH 34.1 pg (27.0-33.0); MCHC 34.5 % (32.0-36.0); MCV 98.8 fL (80-95); MPV 9.2 fL (8.0-11.0); Monocytes % 9.9; Neutrophils % 83.5; Nucleated RBC 0 %; Platelet Count 287 10^3/uL (130-400); RBC 4.31 10^6/uL (4.36-5.78); RDW 15.8 % (11.8-14.1); RDW-SD 57.5 fL; WBC 9.84 10^3/uL (4.4-10.8)
[2020-05-13 10:23] LABS: ALT 29 U/L (16-63); AST 22 U/L (15-37); Albumin 3.4 g/dL (3.4-5.0); Alkaline Phosphatase 70 U/L (46-116); Anion Gap 6.3 mmol/L (3-11); BUN 12 mg/dL (7-18); Bilirubin, Total 0.5 mg/dL (0.2-1.0); CO2 27.7 mmol/L (21.0-32.0); Calcium 8.7 mg/dL (8.5-10.1); Chloride 102 mmol/L (98-107); Glucose 113 mg/dL (74-106); Potassium 4.2 mmol/L (3.5-5.1); Sodium 136 mmol/L (136-145); Total Protein 6.5 g/dL (6.4-8.2)
[2020-05-16 09:21] LABS: CEA 3.2 ng/mL (See Note)
== END 2020-05-30 23:59 | disposition home or self-care (01) ==
LOC: INF 05:28
PROVIDERS: PCP Emergency Medicine; Visit Provider Internal Medicine Hematology & Oncology
DX: C20 Malignant neoplasm of rectum (principal)
CPT/HCPCS: 36415; 80053; 82378; 85025

== ENCOUNTER 2020-06-10 05:14 | Outpatient (RCR) | payer MEDICARE, SELFPAY ==
[2020-06-10 12:22] LABS: Abs Immature Grans 0.04 10^3/uL (0.0-0.06); Absolute Basophil Count 0.04 10^3/uL (0.0-0.2); Absolute Eosinophil Count 0.04 10^3/uL (0.0-0.7); Absolute Monocyte Count 0.94 10^3/uL (0.1-0.8); Absolute Neutrophil Count 5.66 10^3/uL (1.2-6.7); Basophils % 0.5; Eosinophils % 0.5; HCT 43.3 % (40.0-50.0); Immature Grans % 0.5; Lymphocytes % 8.2; MCH 34.6 pg (27.0-33.0); MCHC 34.6 % (32.0-36.0); MCV 99.8 fL (80-95); MPV 9.3 fL (8.0-11.0); Monocytes % 12.8; Neutrophils % 77.5; Nucleated RBC 0 %; Platelet Count 299 10^3/uL (130-400); RBC 4.34 10^6/uL (4.36-5.78); RDW 14.5 % (11.8-14.1); RDW-SD 53.9 fL; WBC 7.32 10^3/uL (4.4-10.8)
[2020-06-10 12:43] LABS: ALT 32 U/L (16-63); AST 19 U/L (15-37); Albumin 3.3 g/dL (3.4-5.0); Alkaline Phosphatase 66 U/L (46-116); Anion Gap 8.3 mmol/L (3-11); BUN 15 mg/dL (7-18); Bilirubin, Total 0.4 mg/dL (0.2-1.0); CO2 25.7 mmol/L (21.0-32.0); CREATININE 1.03 mg/dL (0.70-1.30); Calcium 8.6 mg/dL (8.5-10.1); Chloride 103 mmol/L (98-107); Glucose 100 mg/dL (74-106); Potassium 4.3 mmol/L (3.5-5.1); Sodium 137 mmol/L (136-145); Total Protein 6.3 g/dL (6.4-8.2)
[2020-06-13 15:22] LABS: CEA 3.3 ng/mL (See Note)
== END 2020-06-29 23:59 | disposition home or self-care (01) ==
LOC: INF 05:14
PROVIDERS: PCP Emergency Medicine; Visit Provider Internal Medicine Hematology & Oncology
DX: C20 Malignant neoplasm of rectum (principal)
CPT/HCPCS: 36415; 80053; 82378; 85025

== ENCOUNTER 2020-06-20 00:33 | Outpatient (CLI) | payer MEDICARE, SELFPAY ==
--- NOTE | 2020-06-20 08:30 | DI.US_ITS ---
APPROVED REPORT EXAM: Comprehensive 2D, Doppler, and color-flow Echocardiogram Patient Location: Out-Patient Indications: Atrial Fibrillation Other Information Study Quality: Good Conclusion Left Ventricle : The left ventricle is normal size. The left ventricular systolic function is normal. The left ventricular ejection fraction is within the normal range. There is normal left ventricular wall thickness. There is normal LV segmental wall motion. Diastolic function is indeterminate. LVEF i s 60%. Right Ventricle : The right ventricle is normal size. The right ventricular systolic function is norm al. The RVSP is 24.6mmHg. Atria : The left atrium size is normal. The right atrium size is normal. Valves: There are no hemodynamically significant valvular lesions. Great Vessels : The aortic root is normal in size. The ascending aorta is mildly dilated. Aortic arch is normal in caliber. IVC is normal in size and collapses >50% with inspiration. There are no prior images available for comparison. Wall motion Left Ventricle The left ventricle is normal size. The left ventricular systolic function is normal. The left ventric ular ejection fraction is within the normal range. There is normal left ventricular wall thickness. T here is normal LV segmental wall motion. Diastolic function is indeterminate. There is no ventricular septal defect visualized. LVEF is 60%. Right Ventricle The right ventricle is normal size. The right ventricular systolic function is normal. The RVSP is 24 .6mmHg. Atria The left atrium size is normal. The right atrium size is normal. The interatrial septum is intact wit h no evidence for an atrial septal defect. Aortic Valve The Aortic valve is sclerotic. Aortic valve is trileaflet. There is no aortic valvular stenosis. No a ortic regurgitation is present. Mitral Valve Mild mitral annular calcification. No evidence of mitral valve stenosis. Trace to mild mitral regurgi tation. Tricuspid Valve The tricuspid valve is normal in structure. There is no tricuspid valve stenosis. Trace tricuspid reg urgitation. Pulmonic Valve The pulmonary valve is normal in structure. There is no pulmonic valvular stenosis. Mild pulmonic reg urgitation. Great Vessels The aortic root is normal in size. The ascending aorta is mildly dilated. Aortic arch is normal in ca liber. IVC is normal in size and collapses >50% with inspiration. Pericardium There is no pericardial effusion. 2D Dimensions IVSD d PLAX 1.02 cm M: 0.6-1.2 LV Vol A2C d MOD 56.1 mL LVPW d PLAX 1.04 cm M: 0.6 - 1.2 LV Vol A4C d MOD 79.7 mL LVID d PLAX 4.23 cm M: 4.2 - 5.8 LA vol/ BSA A2C s A-L 22.6 mL/m2 LVDs 2.80 cm M: 2.5 - 4.0 LA vol/ BSA A4C s A-L 35.1 mL/m2 Ao Root d 3.40 cm M: 3.1 - 3.7 LA Vol/ BSA Biplane s A-L 29.6 mL/m2 RA Area A4C 19.10 cm2 LA Area A4C s MOD 20.47 cm2 RA Vol/ BSA A4C s A-L 31.5 mL/m2 LA Area A2C s MOD 15.59 cm2 Ao Asc Diam d 3.51 cm M: 2.6 - 3.4 LV EF A4C MOD 58.1 % LV EF Teichholz 61.9 % LV EF A2C MOD 59.0 % LVEF (Barrera's) 58.53 % M: 52 - 72 LV EF Biplane MOD 58.5 % LV Volume 53.64 mL M: 62 - 150 SV 40.00 mL LV Volume Index 30.65 mL/m2 M: 34 - 74 SV Index 22.79 mL/m2 LV Vol Biplane MOD 68.3 mL FS 32.95 % M-Mode TAPSE 2.11 cm (M/F) >1.7 LV Diastology MV E' medial 0.049 (>0.07 m/s) MV E Vmax 1.07 (0.4-1.3 m/s) LV E/e MED 21.85 (<14) MV E' lateral 0.065 (>0.1 m/s) LV E/e LAT 16.40 (<14) MV E/E' medial 21.87 MV E/E' lateral 16.40 Aortic Valve LVOT Area 3.50 cm2 AoV Area Vmax 2.03 cm2 LVOT Vmax 0.66 m/s AoV Area/ BSA (Vmax) 1.16 cm2/m2 LVOT Mean Rogers. 0.46 m/s OBED Mean Rogers. 2.05 cm2 LVOT Peak Grad 1.7 mmHg OBED Mean Rogers. Index 1.17 cm2/m2 LVOT Mean Grad 0.9 mmHg LVOT VTI 0.127 m LVOT Diam s 2.10 cm AoV Vmax 1.13 m/s Velocity Ratio 0.58 AoV Mean Rogers. 0.78 m/s AoV Peak Grad 5.1 mmHg LVOT SV 44.34 mL AoV Mean Grad 2.8 mmHg AoV VTI 0.204 m AoV Area VTI 2.18 cm2 AoV Area/ BSA (VTI) 1.24 cm/m2 Mitral Valve MV DT 161 (160-240 msec) MV PHT 47 msec MV Area PHT 4.72 cm2 Pulmonary Valve PV Vmax 0.77 (0.5-1.5 m/s) RVOT Peak Gr. 1.82 mmHg PV Peak Grad 2.4 mmHg RVOT Mean Gr. 1.00 mmHg PV Mean Grad 1.1 mmHg RVOT VTI 0.111 m PV VTI 0.148 m RVOT Vmax 0.68 m/s Tricuspid Valve TR Peak Grad 21.5 mmHg TR Vmax 2.32 m/s RA Pressure 3.00 mmHg RVSP (TR) 24.6 mmHg
== END 2020-06-20 00:53 ==
PROVIDERS: PCP Emergency Medicine; Visit Provider Internal Medicine Cardiovascular Disease
DX: I48.91 Unspecified atrial fibrillation (principal); I77.810 Thoracic aortic ectasia
CPT/HCPCS: 93306

== ENCOUNTER 2020-06-24 02:43 | Outpatient (CLI) | payer MEDICARE, SELFPAY | END 2020-06-24 03:03 | PROVIDERS: PCP Emergency Medicine; Visit Provider Nurse Practitioner Gerontology | DX: R97.20 Elevated prostate specific antigen [PSA] (principal) | CPT/HCPCS: 36415; 84153 ==

== ENCOUNTER 2020-06-28 01:21 | Outpatient (CLI) | payer MEDICARE, SELFPAY ==
--- NOTE | 2020-06-28 12:50 | DI.CT_ITS ---
EXAM: CT CHEST/ABD/PEL W CLINICAL HISTORY: RECTAL CA,C20,S/P CHEMO AND RADIATION,RESTAGING EXAM. TECHNIQUE: Imaging Protocol: Axial computed tomography images with coronal and sagittal reformatted images were created and reviewed CONTRAST MATERIAL: Intravenous: Omnipaque 350 Contrast volume:100 ml Oral: / no COMPARISON: CT CT CHEST/ABD/PEL W from 02/04/2020 FINDINGS: CHEST: Thyroid: Unremarkable as visualized. Tracheobronchial tree: Patent where visualized. Mediastinum and Negin: No dominant adenopathy or fluid collection. Pulmonary parenchyma: No consolidation or dominant measurable mass. No architectural distortion. Pleura: No effusion or pneumothorax. Lymph nodes: Within normal limits. Aorta: Thoracic portion non-dilated. Heart: Mildly enlarged. Heavily calcified coronary arteries. Bones: Degenerative changes. No lytic or blastic lesions or evidence of compression fractures. ABDOMEN: Liver: Normal density. Stable cysts. Stable enhancing lesion near the dome of the liver. Gallbladder and biliary tract: No radiodense calculus or dilation. Pancreas: Normal density, no abnormal calcifications or inflammatory process. Spleen: Normal. Kidneys: Normal size, contour and axis. No radiodense stones or obstructive uropathy. No masses seen. Adrenal glands: No masses seen. Aorta: Abdominal portion non-dilated. Heavily calcified. Lymph nodes: Within normal limits. PELVIS: Bladder: Nearly empty. Diffuse wall thickening. Bowel: No obstruction or bowel wall thickening. Rectal mass is not discretely visualized. There is n o surrounding infiltration in the fat. Peritoneal cavity: No ascites, collection or mesenteric inflammatory response. Bones: Degenerative changes. Reproductive organs: Within normal limits. IMPRESSION: No evidence of metastatic disease in the chest, abdomen or pelvis. RADIATION DOSE DELIVERED: 1,383.39mGy.cm Total DLP DATA REPOSITORY: All CT scans at this facility are submitted to the National Radiology Data Registry (NRDR) Dose Index Registry (DIR) with the [employer] (ACR). RADIATION OPTIMIZATION: All CT scans at this facility use at least one of these dose optimization te chniques: automated exposure control; mA and/or kV adjustment per patient size (includes targeted exa ms where dose is matched to clinical indication); or iterative reconstruction.
[2020-06-28] MEDS: Omnipaque 350 MG/ML 100 ML BTL IJ (13:21)
== END 2020-06-28 01:41 ==
PROVIDERS: PCP Emergency Medicine; Visit Provider Internal Medicine Hematology & Oncology
DX: C20 Malignant neoplasm of rectum (principal)
CPT/HCPCS: 74177; 71260; J3490

== ENCOUNTER → 2020-07-04 12:45 | Outpatient (BNVA) | payer MEDICARE, SELFPAY | PROVIDERS: PCP Emergency Medicine; Referring Provider Emergency Medicine; Visit Provider Nurse Practitioner Gerontology | DX: C20 Malignant neoplasm of rectum (principal); R97.20 Elevated prostate specific antigen [PSA]; N40.1 Benign prostatic hyperplasia with lower urinary tract symptoms; R33.8 Other retention of urine; J44.9 Chronic obstructive pulmonary disease, unspecified; F17.210 Nicotine dependence, cigarettes, uncomplicated | CPT/HCPCS: 99214 ==

== ENCOUNTER 2020-07-08 05:56 | Outpatient (RCR) | payer MEDICARE, SELFPAY ==
[2020-07-08 12:09] LABS: Abs Immature Grans 0.06 10^3/uL (0.0-0.06); Absolute Basophil Count 0.02 10^3/uL (0.0-0.2); Absolute Eosinophil Count 0.02 10^3/uL (0.0-0.7); Absolute Lymphocyte Count 0.61 10^3/uL (1.2-3.4); Absolute Monocyte Count 1.11 10^3/uL (0.1-0.8); Basophils % 0.2; Eosinophils % 0.2; HCT 48.4 % (40.0-50.0); HGB 16.6 g/dL (13.5-17.5); Immature Grans % 0.5; MCH 34.8 pg (27.0-33.0); MCHC 34.3 % (32.0-36.0); MCV 101.5 fL (80-95); MPV 9.4 fL (8.0-11.0); Monocytes % 9.1; Nucleated RBC 0 %; Platelet Count 337 10^3/uL (130-400); RBC 4.77 10^6/uL (4.36-5.78); RDW-SD 48.9 fL; WBC 12.24 10^3/uL (4.4-10.8)
[2020-07-08 12:20] LABS: ALT 35 U/L (16-63); AST 24 U/L (15-37); Albumin 3.6 g/dL (3.4-5.0); Alkaline Phosphatase 76 U/L (46-116); Anion Gap 12.3 mmol/L (3-11); BUN 10 mg/dL (7-18); Bilirubin, Total 0.6 mg/dL (0.2-1.0); CO2 26.7 mmol/L (21.0-32.0); CREATININE 0.97 mg/dL (0.70-1.30); Chloride 99 mmol/L (98-107); Glucose 116 mg/dL (74-106); Potassium 3.9 mmol/L (3.5-5.1); Sodium 138 mmol/L (136-145); Total Protein 6.9 g/dL (6.4-8.2)
[2020-07-08 18:46] LABS: CEA 3.2 ng/mL (See Note)
== END 2020-07-30 23:59 | disposition home or self-care (01) ==
LOC: INF 05:56
PROVIDERS: PCP Emergency Medicine; Visit Provider Internal Medicine Hematology & Oncology
DX: C20 Malignant neoplasm of rectum (principal)
CPT/HCPCS: 36415; 80053; 82378; 85025

== ENCOUNTER → 2020-07-13 12:45 | Outpatient (BNVA) | payer MEDICARE, SELFPAY | PROVIDERS: PCP Emergency Medicine; Referring Provider Emergency Medicine; Visit Provider Surgery | DX: L02.31 Cutaneous abscess of buttock (principal); I10 Essential (primary) hypertension; J44.9 Chronic obstructive pulmonary disease, unspecified; F17.210 Nicotine dependence, cigarettes, uncomplicated; M06.9 Rheumatoid arthritis, unspecified; Z79.52 Long term (current) use of systemic steroids | CPT/HCPCS: 99213 ==

== ENCOUNTER → 2020-08-02 10:09 | Outpatient (BNVA) | payer MEDICARE, SELFPAY | PROVIDERS: PCP Emergency Medicine; Referring Provider Emergency Medicine; Visit Provider Internal Medicine Cardiovascular Disease | DX: I48.0 Paroxysmal atrial fibrillation (principal); I25.10 Atherosclerotic heart disease of native coronary artery without angina pectoris; I10 Essential (primary) hypertension | CPT/HCPCS: 99214; 99443 ==

== ENCOUNTER 2020-08-05 05:19 | Outpatient (RCR) | payer MEDICARE, SELFPAY ==
[2020-08-05 12:43] LABS: Abs Immature Grans 0.03 10^3/uL (0.0-0.06); Absolute Basophil Count 0.02 10^3/uL (0.0-0.2); Absolute Eosinophil Count 0.01 10^3/uL (0.0-0.7); Absolute Lymphocyte Count 0.53 10^3/uL (1.2-3.4); Absolute Neutrophil Count 5.06 10^3/uL (1.2-6.7); Basophils % 0.3; Eosinophils % 0.2; HCT 41.9 % (40.0-50.0); HGB 14.6 g/dL (13.5-17.5); Immature Grans % 0.5; Lymphocytes % 8.3; MCH 34.2 pg (27.0-33.0); MCHC 34.8 % (32.0-36.0); MCV 98.1 fL (80-95); Neutrophils % 79.7; Nucleated RBC 0 %; Platelet Count 312 10^3/uL (130-400); RBC 4.27 10^6/uL (4.36-5.78); RDW 12.2 % (11.8-14.1); RDW-SD 43.8 fL; WBC 6.35 10^3/uL (4.4-10.8)
[2020-08-05 12:59] LABS: ALT 45 U/L (16-63); AST 27 U/L (15-37); Albumin 3.5 g/dL (3.4-5.0); Alkaline Phosphatase 76 U/L (46-116); Anion Gap 12.9 mmol/L (3-11); BUN 11 mg/dL (7-18); Bilirubin, Total 0.4 mg/dL (0.2-1.0); CO2 21.1 mmol/L (21.0-32.0); CREATININE 0.88 mg/dL (0.70-1.30); Calcium 8.8 mg/dL (8.5-10.1); Chloride 100 mmol/L (98-107); Glucose 105 mg/dL (74-106); Potassium 4.2 mmol/L (3.5-5.1); Sodium 134 mmol/L (136-145); Total Protein 6.7 g/dL (6.4-8.2)
[2020-08-09 14:43] LABS: CEA 2.5 ng/ml
== END 2020-08-29 23:59 | disposition home or self-care (01) ==
LOC: INF 05:19
PROVIDERS: PCP Emergency Medicine; Visit Provider Internal Medicine Hematology & Oncology
DX: C20 Malignant neoplasm of rectum (principal)
CPT/HCPCS: 36415; 80053; 82378; 85025

== ENCOUNTER 2020-11-16 01:54 | Outpatient (CLI) | payer MEDICARE, SELFPAY ==
[2020-11-16 14:04] LABS: Abs Immature Grans 0.03 10^3/uL (0.0-0.06); Absolute Basophil Count 0.04 10^3/uL (0.0-0.2); Absolute Eosinophil Count 0.02 10^3/uL (0.0-0.7); Absolute Lymphocyte Count 0.73 10^3/uL (1.2-3.4); Absolute Neutrophil Count 5.79 10^3/uL (1.2-6.7); Basophils % 0.5; Eosinophils % 0.3; HCT 43.4 % (40.0-50.0); HGB 15.1 g/dL (13.5-17.5); Immature Grans % 0.4; Lymphocytes % 9.9; MCH 34.2 pg (27.0-33.0); MCHC 34.8 % (32.0-36.0); MCV 98.4 fL (80-95); MPV 9.2 fL (8.0-11.0); Monocytes % 10.8; Neutrophils % 78.1; Nucleated RBC 0 %; Platelet Count 284 10^3/uL (130-400); RBC 4.41 10^6/uL (4.36-5.78); RDW 13.5 % (11.8-14.1); RDW-SD 49.4 fL; WBC 7.41 10^3/uL (4.4-10.8)
[2020-11-16 14:26] LABS: ALT 54 U/L (16-63); AST 28 U/L (15-37); Albumin 3.7 g/dL (3.4-5.0); Alkaline Phosphatase 72 U/L (46-116); Anion Gap 11.6 mmol/L (3-11); BUN 8 mg/dL (7-18); Bilirubin, Total 0.5 mg/dL (0.2-1.0); CO2 25.4 mmol/L (21.0-32.0); CREATININE 0.9 mg/dL (0.70-1.30); Calcium 9.2 mg/dL (8.5-10.1); Chloride 99 mmol/L (98-107); Glucose 85 mg/dL (74-106); Potassium 4.1 mmol/L (3.5-5.1); Sodium 136 mmol/L (136-145)
--- NOTE | 2020-11-16 15:19 | DI.CT_ITS ---
EXAM: CT ABD/PEL W CLINICAL HISTORY: RECTAL CA,C20,RECTAL PAIN, K62.89. TECHNIQUE: Imaging Protocol: Axial computed tomography images with coronal and sagittal reformatted images were created and reviewed CONTRAST MATERIAL: Intravenous: Omnipaque 350 Contrast volume:100 ml Oral: None COMPARISON: CT CT CHEST/ABD/PEL W from 06/28/2020 FINDINGS: ABDOMEN: Visualized lung bases are clear. No pleural effusions. There is no ascites. LIVER: Previously described hepatic cysts are again noted and are unchanged. The previously describe d additional CIS subcapsular enhancing lesion anteriorly in the upper right hepatic lobe is less evid ent on today's study. It probably represents a hemangioma imaged slightly later in bolus timed than on the previous study. GALLBLADDER/BILIARY: No obvious gallbladder pathology. CBD is not dilated. PANCREAS: No evidence of pancreatic mass nor dilatation of the pancreatic duct. SPLEEN: Spleen is not enlarged. There are no intrasplenic lesions. Splenic and portal veins are lacey nt. ADRENALS: There are no significant adrenal masses. KIDNEYS: No calculi nor hydronephrosis. No solid renal masses. Parapelvic cyst in the left kidney are again noted ABDOMINAL AORTA: The abdominal aorta is heavily calcified. Upper normal diameter. The common iliac arteries are also heavily calcified as are the proximal external iliac arteries and common femoral ar teries. There is no para-aortic adenopathy. ABDOMINAL WALL/GI: No evidence of significant anterior abdominal wall hernia. No bowel obstruction. PELVIS: LYMPH NODES: There is no intrapelvic nor inguinal adenopathy. GI: No evidence of appendicitis.No evidence of sigmoid diverticulitis.A distinct rectal masses not ob viously seen. There is also no surrounding infiltration evident nor in the ischial rectal fossae. URINARY BLADDER: Urinary bladder wall is diffusely thickened. The urinary bladder is not distended. There are no diverticuli. REPRODUCTIVE: Prostate gland is enlarged. Seminal vesicles unremarkable. OSSEOUS: No significant osseous lesions. IMPRESSION: 1. Stable appearing hepatic cysts. No new metastatic appearing hepatic lesions, given the history he re. 2. No new intra-abdominal adenopathy nor ascites. 3. Diffuse circumferential thickening of the bladder wall is again noted. The bladder is not distend ed. There are no diverticuli in the bladder evident. I note that the chest was not scanned. Visualized lung bases are clear. There are no pleural effusi ons. RADIATION DOSE DELIVERED: 1,139.41mGy.cm Total DLP DATA REPOSITORY: All CT scans at this facility are submitted to the National Radiology Data Registry (NRDR) Dose Index Registry (DIR) with the [employer] (ACR). RADIATION OPTIMIZATION: All CT scans at this facility use at least one of these dose optimization te chniques: automated exposure control; mA and/or kV adjustment per patient size (includes targeted exa ms where dose is matched to clinical indication); or iterative reconstruction.
[2020-11-16] MEDS: Omnipaque 350 MG/ML 100 ML BTL IJ (15:25)
[2020-11-16] MEDS: Normal Saline - Diluent 50 ML VIAL IV (15:26)
[2020-11-16] MEDS: Normal Saline Flush 10 ML SYR IVP (15:27)
[2020-11-16 22:07] LABS: CEA 3.3 ng/mL (See Note)
== END 2020-11-16 01:55 ==
LOC: DI 01:57
PROVIDERS: Internal Medicine Hematology & Oncology; PCP Emergency Medicine; Visit Provider Nurse Practitioner Family
DX: C20 Malignant neoplasm of rectum (principal); K62.89 Other specified diseases of anus and rectum; K76.89 Other specified diseases of liver; N32.89 Other specified disorders of bladder
CPT/HCPCS: 74177; 80053; 71260; 82378; 85025; J3490

== ENCOUNTER 2020-11-18 17:34 | Emergency (ER) | payer MEDICARE, SELFPAY ==
[2020-11-18 17:43] VITALS: BP 156/100; PULSE 80; RESP 18; TEMP 36.3; O2SAT 94
--- NOTE | 2020-11-18 18:01 | W.ED.GENAD ---
Discharge Plan Disposition Patient Disposition: HOME Condition: Improving Discharge Details Clinical Impression: Abdominal pain, Rectal cancer, Palliative care patient Primary Care Provider: Yonathan Boggs ED Provider: Mumtaz Bran Home Meds and New Rx's Prescriptions: Continued morphine 15 mg capsule 15 mg PO ONCE HS RF: 0 prednisone 5 mg tablet 5 mg PO DAILY RF: 0 silodosin [Rapaflo] 8 mg capsule 8 mg PO DAILY Qty: 30 RF: 6 senna 8.6 mg capsule 8.6 mg PO BID PRN (Reason: constipation) Qty: 60 RF: 0 aspirin [Ecotrin Low Strength] 81 MG tablet,delayed release (DR/EC) 81 mg PO .EVERY OTHER DAY RF: 0 Rituxan 10 MG/1 ML concentrate 0 IV q6 months RF: 0 Hold Instructions: Home Medication placed on hold at Doctor's office metoprolol tartrate 100 mg tablet 100 mg PO BID Qty: 180 RF: 4 oxycodone 5 mg tablet 5 mg PO Q6H MDD 4 PRN (Reason: pain) Qty: 30 RF: 0 naproxen 500 mg tablet 500 mg PO BID PRN (Reason: pain) Qty: 60 RF: 1 Discharge Instructions Instructions: Abdominal Pain (ED) Additional Instructions: Continue small, frequent sips of fluids so that you maintain hydration. Continue your regular medications. Please follow-up with Dr. Perez for recheck. Return if you develop bloating, increasing pain, vomiting, or any other acute concern. Medical Decision Making Patient is a 70-year-old male with a history of rectal cancer who was undergone radiation and chemotherapy finishing last summer. He has declined any surgery or colostomy. He is a palliative care patient. He developed abdominal pain approximately 10:00 this morning. Its been persistent throughout the day. He had some mild constipation but did have 2 small stools produced today. No fever and no vomiting. He arrives to the ER in pain with blood pressure 156/100, pulse 80, temp 36.3. Abdomen is mildly diffusely tender but soft. Patient underwent CT of the abdomen, pelvis on November 16. This revealed stable hepatic cysts, no new intra-abdominal adenopathy or ascites. Bladder wall thickening noted. Given the recent CT imaging, patient was referred for blood work, urinalysis, abdominal radiographs. Labs show a white count of 8, hematocrit 41, platelets 256. Lactate slightly elevated at 1.7. Sodium 135, potassium 3.7, BUN 11, creatinine 1.0, unremarkable LFTs and lipase. Urinalysis is slightly concentrated and with ketones. Patient given fluid bolus and parenteral analgesia with some improvement of the discomfort. X-ray reveals air in the colon, no dilated bowel loops. No acute process per radiology. I do question subtle air-fluid levels. I discussed with the patient pursuing question of partial small bowel obstruction with CT imaging which she wishes to defer given that he is now on palliative care and had an unremarkable CT scan 2 days ago. He will be discharged home. He will return if he develops vomiting, bloating, or increased pain. He is stable at this time. He will follow-up with Dr. Perez. [facility] General Mode of arrival: ambulatory. Date/Time Provider Initiated Documentation: 11/18/20 17:34. Limitations to Documentation: no limitations. Information obtained by: patient. History of Present Illness 70 year old M presents to the emergency department with the chief complaint of Lower abdominal pain for hours, described as moderate, Quality is described as dull and constant, and is localized to the abdomen. Patient reports no radiation. Patient started experiencing this hour(s) and it has been constant. No relieving factors improve symptom(s), No exacerbating factors reported . Patient notes denies fever/chills and nausea/vomiting. Patient did receive the following treatments prior to arrival, none Related Data Home Medications Medication Instructions Recorded Confirmed aspirin [Ecotrin Low Strength] 81 mg PO .EVERY OTHER DAY tab-cap 12/04/12 09/27/20 Rituxan 0 IV q6 months vial 07/31/13 09/27/20 metoprolol tartrate 100 mg tablet 100 mg PO BID #180 tab-cap 11/30/19 09/27/20 oxycodone 5 mg tablet 5 mg PO Q6H PRN #30 tab MDD 4 02/02/20 09/27/20 naproxen 500 mg tablet 500 mg PO BID PRN #60 tab 02/04/20 09/27/20 sennosides 8.6 mg capsule 8.6 mg PO BID PRN #60 cap 06/17/20 09/27/20 silodosin 8 mg capsule 8 mg PO DAILY #30 cap 07/04/20 09/27/20 morphine 15 mg capsule 15 mg PO ONCE HS cap 09/27/20 09/27/20 prednisone 5 mg tablet 5 mg PO DAILY tab-cap 09/27/20 09/27/20 Previous Rx's Medication Instructions Recorded metoprolol tartrate 100 mg tablet 100 mg PO BID #180 tab-cap 11/30/19 oxycodone 5 mg tablet 5 mg PO Q6H PRN #30 tab MDD 4 02/02/20 naproxen 500 mg tablet 500 mg PO BID PRN #60 tab 02/04/20 sennosides 8.6 mg capsule 8.6 mg PO BID PRN #60 cap 06/17/20 silodosin 8 mg capsule 8 mg PO DAILY #30 cap 07/04/20 Allergies Allergy/AdvReac Type Severity Reaction Status Date / Time terazosin AdvReac Intermediate Dizziness/L Verified 11/18/20 17:46 ightheade lisinopril AdvReac Mild COUGH Verified 11/18/20 17:46 atorvastatin AdvReac Unknown ?DIARRHEA Verified 11/18/20 17:46 Serotonin 5HT-3 Antagonists AdvReac Unknown Verified 11/18/20 17:46 sulfasalazine AdvReac Made RA Verified 11/18/20 17:46 worse tamsulosin [From Flomax] AdvReac Dizziness/L Verified 11/18/20 17:46 ightheade General Stated Complaint: Abd Prob BETTY: 3 Review of Systems Narrative: Took oxycodone at home. No fever or vomiting. Had hard stool x2 today. 6 systems reviewed and otherwise are negative [facility] Medical History Acute ill-defined cerebrovascular disease (08/29/00) Alcohol abuse heavy alcohol use-patient denies alcohol abuse. Atrial flutter 01/07 STRESS TEST NEG 2011;Ablation BPH (benign prostatic hyperplasia) (03/29/15) Cervical radicular pain (05/21/14) Severe DJD with multilevel foraminal narrowing MRI 05/13 Chronic obstructive pulmonary disease (05/29/16) Patient denies having COPD. Chronic pain disorder (05/15/12) 10/08/17; CONTROLLED SUBSTANCE AGREEMENT 01/27/19 Contract no longer needed/cancelled per TB-kb Coronary atherosclerosis of agdaagux coronary vessel a.STEMI (inf) b. RCA stent c. a.flutter Depressive disorder situational Dizziness Duodenal ulcer disease Essential hypertension (07/30/13) Patient denies hx of HTN. States he's on Metoprolol for rate control. Hearing loss A.S. Hx TIA/stroke w/o resid Hyperlipidemia Immunosuppression due to chronic steroid use Migraine with visual aura (03/29/15) Palliative care patient Paroxysmal atrial fibrillation Amber's disease Rheumatoid arthritis Smoker quit 09/04 Unilateral inguinal hernia right Surgical History Colonoscopy - MAC 06/03; neg Hx of heart artery stent Stent 2006 Ablation 2011 rectal fistula repair Status post reconstruction procedure Status post vasectomy vasc revision Family History Mother No problems noted. Father No problems noted. Brother No problems noted. Brother No problems noted. Brother No problems noted. Daughter No problems noted. Maternal Grandfather No problems noted. Paternal Grandfather No problems noted. Maternal Grandfather No problems noted. Paternal Grandfather No problems noted. Social History Smoking/Tobacco Use Status: Current-Occasional Tobacco Type: cigarettes Quit status: has quit before Second Hand Exposure: Yes Smoking risk assessment performed?: Yes Alcohol Intake: current Alcohol Intake frequency: 3 or more drinks per day Alcohol type: beer Drug use: Rarely Substance use type: marijuana Caregiver/Support person: Yes Household members: none Housing: apartment Communication Needs: Hard of Hearing Do you need help understanding health information?: Never Pets and animals: No Sexually active: No Do you think of yourself as: straight/heterosexual Current gender identity: male What is your relationship status?: How often do you talk on the phone with friends or family?: decline to answer How often do you get together with friends or relatives?: decline to answer How often do you attend mormon or zoroastrianism services?: decline to answer Do you belong to any clubs or organized social groups?: decline to answer Panel score (0-1 are the most socially isolated patients): 0 What type of physical activity do you participate in: none Chary/Confucianist: Declined Do you feel safe at home: Yes Do you feel safe in your relationship?: Yes Exam Narrative Exam Narrative: GEN: awake, alert, oriented 3. Pleasant, well groomed, interactive. HEAD: Normocephalic, atraumatic ENT: Mucous membranes dry, External ear exam unremarkable EYES: PERRL, EOMI NECK: Full ROM, no PEREZ, no menigismus CHEST/RESP: Nontender, clear to auscultation bilateral, no wheeze/rhonchi/rales CARDIOVASCULAR: RRR, no murmur, rub leonard. 2+ Rad pulse bilateral ABDOMEN: Soft, mild diffuse tenderness, no mass. +Bowel sounds EXT: Full ROM, no edema, no rash Neuro: Grossly normal neurologic exam, conversant, interactive. Psych: Speech fluent, thoughts congruent, affect normal Course Vital Signs Vital signs: Vital Signs Temperature 36.3 C L 11/18/20 17:43 Pulse 80 11/18/20 17:43 Respiratory Rate 18 11/18/20 17:43 Blood Pressure 156/100 H 11/18/20 17:43 Pulse Oximetry 94 11/18/20 17:43 Temperature 36.3 C L 11/18/20 17:43 Temperature Source Skin 11/18/20 17:43 Pulse 80 11/18/20 17:43 Respiratory Rate 18 11/18/20 17:43 Respiratory Effort Non-Labored 11/18/20 17:47 Blood Pressure 156/100 H 11/18/20 17:43 Blood Pressure Position Sitting 11/18/20 17:43 Pulse Oximetry 94 11/18/20 17:43 Oxygen Delivery Method Room Air 11/18/20 17:43 Oxygen Flow Rate 0 11/18/20 17:43 Pain Level 10 11/18/20 17:43
[2020-11-18] MEDS: Normal Saline Flush 10 ML SYR IVP (18:10)
[2020-11-18] MEDS: Normal Saline 1,000 ML 125 ML IV (18:10)
--- NOTE | 2020-11-18 18:15 | DI.RAD_ITS ---
EXAM: XR ABDOMEN FLAT UPRIGHT CLINICAL HISTORY: Abd pain, hx rectal cancer. TECHNIQUE: 2D digital imaging was performed. COMPARISON: CT CT CHEST/ABD/PEL W from 11/16/2020 FINDINGS: On the upright view there is a single air-fluid level noted on the right side just above the iliac cr est, possibly significant. No free intraperitoneal air evident. The stomach is not distended. Ther e are no grossly distended small bowel loops. Vascular calcification is noted in the common iliac ar teries. Degenerative disc disease multilevel. Visualized lung bases are clear. IMPRESSION: On the upright view there is no free air but there is a single air-fluid level noted in the right gabrielle e of the abdomen above the iliac crest level, possibly significant. There is, however, no evidence o f prominent small bowel obstruction at this time. Appropriate follow-up recommended. DATA REPOSITORY: RADIATION DOSE DELIVERED:
[2020-11-18] MEDS: HYDROmorphone 2 MG/ML VIAL 1 MG IVP ×2 (18:21→19:12)
[2020-11-18 18:23] LABS: Lactate 1.7 mmol/L (0.6-1.4)
[2020-11-18 18:25] LABS: Abs Immature Grans 0.04 10^3/uL (0.0-0.06); Absolute Basophil Count 0.02 10^3/uL (0.0-0.2); Absolute Eosinophil Count 0.03 10^3/uL (0.0-0.7); Absolute Lymphocyte Count 0.38 10^3/uL (1.2-3.4); Absolute Monocyte Count 0.93 10^3/uL (0.1-0.8); Absolute Neutrophil Count 7.28 10^3/uL (1.2-6.7); Basophils % 0.2; Eosinophils % 0.3; HCT 41.4 % (40.0-50.0); HGB 14.6 g/dL (13.5-17.5); Immature Grans % 0.5; Lymphocytes % 4.4; MCHC 35.3 % (32.0-36.0); MCV 96.5 fL (80-95); Monocytes % 10.7; Neutrophils % 83.9; Nucleated RBC 0 %; Platelet Count 256 10^3/uL (130-400); RBC 4.29 10^6/uL (4.36-5.78); RDW 13.2 % (11.8-14.1); RDW-SD 47.4 fL; WBC 8.68 10^3/uL (4.4-10.8)
[2020-11-18 18:40] LABS: ALT 44 U/L (16-63); AST 20 U/L (15-37); Albumin 3.5 g/dL (3.4-5.0); Alkaline Phosphatase 67 U/L (46-116); Anion Gap 10.4 mmol/L (3-11); BUN 11 mg/dL (7-18); Bilirubin, Total 0.6 mg/dL (0.2-1.0); CO2 25.6 mmol/L (21.0-32.0); Chloride 99 mmol/L (98-107); Glucose 147 mg/dL (74-106); Potassium 3.7 mmol/L (3.5-5.1); Sodium 135 mmol/L (136-145); Total Protein 6.6 g/dL (6.4-8.2)
[2020-11-18 18:41] LABS: Lipase 62 U/L (73-393)
[2020-11-18 19:03] LABS: Bilirubin Negative (Negative); Blood Trace-intact (Negative); Clarity Clear (Clear); Glucose Negative (Negative); Ketones 15 mg/dL (Negative); Leukocyte Esterase Negative (Negative); Nitrite Negative (Negative); Specific Gravity 1.025 (1.005-1.025); Urobilinogen 0.2 EU/dL (Up TO 0.2)
[2020-11-18] MEDS: Normal Saline 250 ML 500 ML IV (19:05)
[2020-11-18 19:11] LABS: Epithelial Cells Rare HPF (Negative); RBC 0-2 HPF (0-2); WBC 0-2 HPF (0-5)
[2020-11-18 19:12] LABS: Bacteria Negative HPF (Negative); C & S Indicated? No; Casts Negative LPF (Negative); Crystals Negative HPF (Negative); Mucus Negative (Negative)
--- NOTE | 2020-11-18 19:32 | DI.VRAD_ITS ---
PROCEDURE INFORMATION: Exam: XR Abdomen, 2 Views Exam date and time: 11/18/2020 7:06 PM Age: 70 years old Clinical indication: Abdominal pain; Generalized; Patient HX: Abd pain x9 hours+/-, HX rectal cancer. TECHNIQUE: Imaging protocol: XR of the abdomen. Views: 2 Views. COMPARISON: CT CHEST/ABD/PEL W 11/16/2020 3:15 PM FINDINGS: Gastrointestinal tract: Air in the colon. No dilated bowel Intraperitoneal space: Normal. No free air. Bones/joints: Degenerative changes in the lumbar spine IMPRESSION: No acute process Dictated and Authenticated by: Jaycee Jacobs MD. Ordering:SUPA Pandya MD
[2020-11-18 20:02] VITALS: BP 160/90; PULSE 84; RESP 16; TEMP 36.8; O2SAT 98
== END 2020-11-18 20:15 | disposition home or self-care (01) ==
PROVIDERS: Emergency Provider Emergency Medicine; PCP Emergency Medicine
DX: R10.30 Lower abdominal pain, unspecified (principal); C20 Malignant neoplasm of rectum; Z51.5 Encounter for palliative care
CPT/HCPCS: 80053; 83690; 96361; 96374; 96376; 99284; 74019; 81003; 81015; 83605; 85025

== ENCOUNTER 2020-11-19 16:37 | Inpatient (IN) | payer MEDICARE, SELFPAY ==
[2020-11-19] VITALS (16 sets, daily range): BP systolic 107–139; BP diastolic 71–103; PULSE 65–137; RESP 16–25; TEMP 36.4; O2SAT 92–98
[2020-11-19 17:29] LABS: Abs Immature Grans 0.11 10^3/uL (0.0-0.06); Absolute Basophil Count 0.06 10^3/uL (0.0-0.2); Basophils % 0.3; Eosinophils % 0.7; HCT 43.5 % (40.0-50.0); HGB 15.6 g/dL (13.5-17.5); Immature Grans % 0.5; MCH 34.4 pg (27.0-33.0); MCHC 35.9 % (32.0-36.0); Monocytes % 9.6; Neutrophils % 86.9; Nucleated RBC 0 %; Platelet Count 245 10^3/uL (130-400); RBC 4.53 10^6/uL (4.36-5.78); RDW 13.2 % (11.8-14.1); RDW-SD 47.2 fL; WBC 20.35 10^3/uL (4.4-10.8)
[2020-11-19] MEDS: MORPHine 10 MG/ML VIAL 4 MG IVP (17:30)
[2020-11-19 17:38] LABS: Absolute Eosinophil Count 0.14 10^3/uL (0.0-0.7); Absolute Lymphocyte Count 0.41 10^3/uL (1.2-3.4); Absolute Monocyte Count 1.95 10^3/uL (0.1-0.8); Absolute Neutrophil Count 17.68 10^3/uL (1.2-6.7)
--- NOTE | 2020-11-19 17:43 | W.ED.GENAD ---
Discharge Plan Discharge Details Chief Complaint: Abd Prob Admit Date/Time: 11/19/20 21:49 Admit Provider: Karlee Carty Attending Provider: Karlee Carty Primary Care Provider: Yonathan Boggs ED Provider: Marla De La Paz Medical Decision Making Virtual radiology interpretation CT abdomen and pelvis gastroenteritis, case was discussed with Dr. Cisneros, surgery and he does not see evidence of secondary appendicitis nor evidence of obvious mesenteric ischemia although patient did not have CTA of his abdomen and pelvis he does not mildly elevated lactate, however is consistent with his lactate yesterday at 1.7 With his elevated lactate and white blood cell count of 20,000 with persistent abdominal pain despite his palliative care morphine and Percocet, I think patient would benefit from admission overnight in observation Case was discussed with admitting hospitalist, Dr. Carty and she is agreeable to admit this patient It was noted when patient was having EKG performed but she was in atrial flutter, as her rate was noted to be 170s His blood pressure remained stable Patient is not currently anticoagulated He did not take his metoprolol today reportedly in the evening He is not currently aware that he is in atrial flutter and states that his heart rate is frequently 160 and he follow-up verbal He was given 2 5 mg boluses of metoprolol which he tolerated now and is now rate controlled below 100 His blood pressure stable at 120/80 He maintains mentation and alert, oriented, of decisional capacity He is treated with Zosyn empirically for intra-abdominal process process Dr. Cisneros will consult tomorrow All of the laboratory evaluation and discharge information was reviewed from yesterday's visit Urinalysis did not show evidence of urinary tract infection Differential Diagnosis Differential Diagnosis: Mesenteric ischemia, bowel obstruction, gastroenteritis, appendicitis Medical Records Medical records reviewed: Yes I reviewed the patient's medical records. HPI This 70-year-old male on palliative care for colorectal cancer with history of chronic steroid dependency, paroxysmal atrial flutter, anticoagulated on Eliquis presents for evaluation for reevaluation of abdominal pain. He was evaluated yesterday and after long discussion with the ED physician, declined CT imaging of his abdomen and pelvis. He was instructed to return with worsening pain. Patient reportedly had worsening pain which precipitated his visit today. He has not moved his bowels since Saturday reportedly. He has not passed flatus per patient. He denies any vomiting or nausea. He denies chest pain or shortness of breath. Denies prior history of similar pain in the past. He denies small resection of a rectal tumor but denies any additional intra-abdominal surgeries. Denies any urinary complaints aside from slow stream. Denies any flank pain. Denies fever or chills. General Date/Time Provider Initiated Documentation: 11/19/20 16:59. Related Data Home Medications Medication Instructions Recorded Confirmed aspirin [Ecotrin Low Strength] 81 mg PO .EVERY OTHER DAY tab-cap 12/04/12 11/19/20 Rituxan 0 IV q6 months vial 07/31/13 09/27/20 metoprolol tartrate 100 mg tablet 100 mg PO BID #180 tab-cap 11/30/19 11/19/20 oxycodone 5 mg tablet 5 mg PO Q6H PRN #30 tab MDD 4 02/02/20 11/19/20 naproxen 500 mg tablet 500 mg PO BID PRN #60 tab 02/04/20 11/19/20 sennosides 8.6 mg capsule 8.6 mg PO BID PRN #60 cap 06/17/20 11/19/20 silodosin 8 mg capsule 8 mg PO DAILY #30 cap 07/04/20 11/19/20 morphine 15 mg capsule 15 mg PO ONCE HS cap 09/27/20 11/19/20 prednisone 5 mg tablet 5 mg PO DAILY tab-cap 09/27/20 11/19/20 Previous Rx's Medication Instructions Recorded metoprolol tartrate 100 mg tablet 100 mg PO BID #180 tab-cap 11/30/19 oxycodone 5 mg tablet 5 mg PO Q6H PRN #30 tab MDD 4 02/02/20 naproxen 500 mg tablet 500 mg PO BID PRN #60 tab 02/04/20 sennosides 8.6 mg capsule 8.6 mg PO BID PRN #60 cap 06/17/20 silodosin 8 mg capsule 8 mg PO DAILY #30 cap 07/04/20 Allergies Allergy/AdvReac Type Severity Reaction Status Date / Time terazosin AdvReac Intermediate Dizziness/L Verified 11/19/20 16:56 ightheade lisinopril AdvReac Mild COUGH Verified 11/19/20 16:56 atorvastatin AdvReac Unknown ?DIARRHEA Verified 11/19/20 16:56 Serotonin 5HT-3 Antagonists AdvReac Unknown Verified 11/19/20 16:56 sulfasalazine AdvReac Made RA Verified 11/19/20 16:56 worse tamsulosin [From Flomax] AdvReac Dizziness/L Verified 11/19/20 16:56 ightheade General Stated Complaint: Abd Prob BETTY: 3 Review of Systems Narrative: Review of systems negative x7 aside from medication in HPI All systems reviewed & are unremarkable except as noted in HPI and below PFSH Medical History Acute ill-defined cerebrovascular disease (08/29/00) Alcohol abuse heavy alcohol use-patient denies alcohol abuse. Atrial flutter 01/07 STRESS TEST NEG 2011;Ablation BPH (benign prostatic hyperplasia) (03/29/15) Cervical radicular pain (05/21/14) Severe DJD with multilevel foraminal narrowing MRI 05/13 Chronic obstructive pulmonary disease (05/29/16) Patient denies having COPD. Chronic pain disorder (05/15/12) 10/08/17; CONTROLLED SUBSTANCE AGREEMENT 01/27/19 Contract no longer needed/cancelled per TB-kb Coronary atherosclerosis of [place] coronary vessel a.STEMI (inf) b. RCA stent c. a.flutter Depressive disorder situational Dizziness Duodenal ulcer disease Essential hypertension (07/30/13) Patient denies hx of HTN. States he's on Metoprolol for rate control. Hearing loss A.S. Hx TIA/stroke w/o resid Hyperlipidemia Immunosuppression due to chronic steroid use Migraine with visual aura (03/29/15) Palliative care patient Paroxysmal atrial fibrillation Amber's disease Rheumatoid arthritis Smoker quit 09/04 Unilateral inguinal hernia right Surgical History Colonoscopy - MAC 06/03; neg Hx of heart artery stent Stent 2006 Ablation 2011 rectal fistula repair Status post reconstruction procedure Status post vasectomy vasc revision Family History Mother No problems noted. Father No problems noted. Brother No problems noted. Brother No problems noted. Brother No problems noted. Daughter No problems noted. Maternal Grandfather No problems noted. Paternal Grandfather No problems noted. Maternal Grandfather No problems noted. Paternal Grandfather No problems noted. Social History Smoking/Tobacco Use Status: Current-Occasional Tobacco Type: cigarettes Quit status: has quit before Second Hand Exposure: Yes Smoking risk assessment performed?: Yes Alcohol Intake: current Alcohol Intake frequency: 3 or more drinks per day Alcohol type: beer Drug use: Rarely Substance use type: marijuana Caregiver/Support person: Yes Household members: none Housing: apartment Communication Needs: Hard of Hearing Do you need help understanding health information?: Never Pets and animals: No Sexually active: No Do you think of yourself as: straight/heterosexual Current gender identity: male What is your relationship status?: How often do you talk on the phone with friends or family?: decline to answer How often do you get together with friends or relatives?: decline to answer How often do you attend methodist or gnosticism services?: decline to answer Do you belong to any clubs or organized social groups?: decline to answer Panel score (0-1 are the most socially isolated patients): 0 What type of physical activity do you participate in: none Chary/Taoism: Declined Do you feel safe at home: Yes Do you feel safe in your relationship?: Yes Exam Const General: cooperative Orientation: alert and oriented x3 Eyes Pupils: PERRL Chest Chest: normal inspection of the chest Resp Effort & Inspection: normal respiratory effort Auscultation: clear to auscultation bilaterally Cardio Rate: regular rate Rhythm: regular rhythm GI Inspection: normal to inspection Auscultation: normal bowel sounds Other: Exquisitely tender in the right lower quadrant, no rebound or guarding, no distention, no discoloration, no CVA tenderness, no abdominal bruit or pulsatile mass Neuro General: patient alert and patient oriented x3 Extrem General: normal to inspection Other: Distal pulses intact Course Vital Signs Vital signs: Vital Signs Temperature 36.4 C L 11/19/20 16:51 Pulse 65 11/19/20 16:51 Respiratory Rate 16 11/19/20 16:51 Blood Pressure 107/71 11/19/20 16:51 Pulse Oximetry 96 11/19/20 16:51 Temperature 36.4 C L 11/19/20 16:51 Temperature Source Temporal Artery Scan 11/19/20 16:51 Pulse 65 11/19/20 16:51 Respiratory Rate 16 11/19/20 16:51 Respiratory Effort 11/19/20 17:04 Blood Pressure 107/71 11/19/20 16:51 Blood Pressure Position Sitting 11/19/20 16:51 Pulse Oximetry 96 11/19/20 16:51 Oxygen Delivery Method Room Air 11/19/20 16:51 Oxygen Flow Rate 0 11/19/20 16:51 Pain Level 10 11/19/20 17:30 Comment 11/19/20 16:51 Lab/Test Results Lab/Test Results: Laboratory Tests Range/Units 11/19/20 17:20 WBC (4.4-10.8) 10^3/uL 20.35 H D RBC (4.36-5.78) 10^6/uL 4.53 Hgb (13.5-17.5) g/dL 15.6 Hct (40.0-50.0) % 43.5 MCV (80-95) fL 96.0 H MCH (27.0-33.0) pg 34.4 H MCHC (32.0-36.0) % 35.9 RDW (11.8-14.1) % 13.2 Plt Count (130-400) 10^3/uL 245 MPV (8.0-11.0) fL 9.0 Immature Gran % 0.5 Neutrophils % 86.9 Lymphocytes % 2.0 Monocytes % 9.6 Eosinophils % 0.7 Basophils % 0.3 Nucleated RBC % % 0 Absolute Neutrophils (1.2-6.7) 10^3/uL 17.68 H Absolute Lymphocytes (1.2-3.4) 10^3/uL 0.41 L Absolute Monocytes (0.1-0.8) 10^3/uL 1.95 H Absolute Eosinophils (0.0-0.7) 10^3/uL 0.14 Absolute Basophils (0.0-0.2) 10^3/uL 0.06
[2020-11-19 17:50] LABS: ALT 35 U/L (16-63); AST 18 U/L (15-37); Albumin 3.3 g/dL (3.4-5.0); Alkaline Phosphatase 69 U/L (46-116); Anion Gap 9.3 mmol/L (3-11); BUN 9 mg/dL (7-18); Bilirubin, Total 1.1 mg/dL (0.2-1.0); CO2 26.7 mmol/L (21.0-32.0); CREATININE 1.2 mg/dL (0.70-1.30); Calcium 8.9 mg/dL (8.5-10.1); Chloride 92 mmol/L (98-107); Glucose 139 mg/dL (74-106); Lipase 45 U/L (73-393); Potassium 3.8 mmol/L (3.5-5.1); Sodium 128 mmol/L (136-145); Total Protein 6.7 g/dL (6.4-8.2)
[2020-11-19 18:42] LABS: Magnesium 1.5 mg/dL (1.8-2.4)
--- NOTE | 2020-11-19 18:44 | DI.CT_ITS ---
EXAM: CT ABDOMEN PELVIS W CLINICAL HISTORY: colorectal cancer, RLQ pain. TECHNIQUE: Imaging Protocol: Axial computed tomography images with coronal and sagittal reformatted images were created and reviewed CONTRAST MATERIAL: Intravenous: Omnipaque 100cc Oral: None COMPARISON: CT CT CHEST/ABD/PEL W from 06/28/[address] CHEST/ABD/PEL W from 11/16/2020 FINDINGS: VISUALIZED LUNG BASES: No nodules nor pleural effusions evident. ABDOMEN: There is no ascites. LIVER: Again noted are previously described benign-appearing cysts in the liver, unchanged in size an d number. There are no new metastatic appearing lesions in the liver evident. GALLBLADDER/BILIARY: No obvious gallbladder pathology. CBD is not dilated. PANCREAS: No evidence of pancreatic mass nor dilatation of the pancreatic duct. SPLEEN: Spleen is not enlarged. No obvious intrasplenic lesions. Splenic and portal veins are paten t. ADRENALS: There are no significant adrenal masses. KIDNEYS:There are parapelvic cysts in the left kidney again noted. Mild perinephric streaking again noted. No solid renal masses. No calculi nor hydronephrosis.. ABDOMINAL AORTA: The abdominal aorta is calcified but not enlarged. The common iliac arteries are he avily calcified. There is mild aneurysmal dilatation of the distal right common iliac artery which e xhibits a diameter of 1.6 cm at this level. LYMPH NODES:There is no retroperitineal nor paraaortic adenopathy. ABDOMINAL WALL/GI: No evidence of significant anterior abdominal wall hernia. No bowel obstruction. PELVIS: GI: Appendix is not seen is a separate structure but there no secondary signs of appendicitis.Slight thickening of the rectum and sigmoid wall is noted, difficult to assess without intraluminal contrast at this level but appearing more evident than on the prior CT scan of May 2020. LYMPH NODES: There is no intrapelvic nor inguinal adenopathy. REPRODUCTIVE: Mild enlargement of the prostate gland. URINARY BLADDER: There is mild uniform thickening of the urinary bladder wall. No obvious calculi wi thin the urinary bladder lumen. OSSEOUS: No significant osseous lesions. Multilevel chronic degenerative disc disease. IMPRESSION: 1. Compared to the prior CT scan of May 2020 there is now some thickening of the wall of the re ctum and rectosigmoid, possibly significant. There is no regional lymphadenopathy in this region nor elsewhere in the abdomen and pelvis. There is no ascites 2. Uniform thickening of the urinary bladder wall is noted. 3. Multiple benign cysts in the liver remain stable. There are no metastatic appearing lesions in th e liver, given the history here. 4. Parapelvic cyst left kidney are again noted. 5. Heavily calcified abdominal aorta and iliac arteries. 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 RADIATION DOSE DELIVERED: 726.69mGy.cm Total DLP DATA REPOSITORY: All CT scans at this facility are submitted to the National Radiology Data Registry (NRDR) Dose Index Registry (DIR) with the [employer] (ACR). RADIATION OPTIMIZATION: All CT scans at this facility use at least one of these dose optimization te chniques: automated exposure control; mA and/or kV adjustment per patient size (includes targeted exa ms where dose is matched to clinical indication); or iterative reconstruction.
[2020-11-19] MEDS: Normal Saline 500 ML 1000 ML IV (18:45)
[2020-11-19 18:52] LABS: Lactate 1.7 mmol/L (0.6-1.4)
[2020-11-19] MEDS: Omnipaque 350 MG/ML 100 ML BTL IJ (18:53)
[2020-11-19] MEDS: Normal Saline - Diluent 50 ML VIAL IV (18:53)
[2020-11-19] MEDS: Normal Saline Flush 10 ML SYR IVP (18:56)
[2020-11-19 19:00] LABS: Bilirubin Negative (Negative); Blood Moderate (Negative); Clarity Clear (Clear); Glucose Negative (Negative); Ketones Negative (Negative); Leukocyte Esterase Negative (Negative); Nitrite Negative (Negative); Urobilinogen 0.2 EU/dL (Up TO 0.2)
--- NOTE | 2020-11-19 19:24 | DI.VRAD_ITS ---
PROCEDURE INFORMATION: Exam: CT Abdomen And Pelvis With Contrast Exam date and time: 11/19/2020 6:34 PM Age: 70 years old Clinical indication: Abdominal pain; Patient HX: Colorectal cancer, rlq pain TECHNIQUE: Imaging protocol: Computed tomography of the abdomen and pelvis with contrast. COMPARISON: CT CHEST/ABD/PEL W 11/16/2020 3:15 PM FINDINGS: Lungs: The visualized lung kruse show mild bibasilar atelectasis. Liver: The liver is normal in size. There are no enhancing liver masses. There are multiple stable hepatic cysts and small hypodensities, too small to characterize. The largest liver cyst is at the base of the caudate lobe measuring 27 mm, unchanged. Gallbladder and bile ducts: No calcified stones. No ductal dilation. Pancreas: Normal in size and homogeneous enhancement. No ductal dilation. Spleen: Normal. No splenomegaly. Adrenal glands: Normal. No mass. Kidneys and ureters: There is no hydronephrosis. No renal or ureteral calculi are identified. There is redemonstration of parapelvic left renal cysts. There is nonspecific stranding in the perirenal spaces bilaterally. Stomach and bowel: Multiple thickened loops of bowel are seen in the mid abdomen suggesting enteritis (series 4, image 48 and series 6, image 35). Appendix: The appendix is not identified. There are no secondary signs of acute appendicitis. Intraperitoneal space: No free air. No significant fluid collection. Vasculature: There is severe atherosclerotic calcification and ectasia of the abdominal aorta extending into the iliac arteries. No abdominal aortic aneurysm is identified. There is fusiform aneurysmal dilatation of the right common iliac artery measuring up to 15 mm in diameter. Lymph nodes: No enlarged retroperitoneal, mesenteric or pelvic lymph nodes. Urinary bladder: There is mild thickening and inflammatory stranding of the bladder wall that may be secondary to infection or increased trabeculation. Reproductive: There is a surgical clip in the right hemiscrotum. The prostate measures 5 cm in transverse dimension. Bones/joints: Multilevel degenerative disc disease and vacuum disc noted in the lumbar spine. There are so fights at multiple levels. No blastic or bony destructive lesions identified. Soft tissues: Normal. IMPRESSION: 1. Findings consistent with enteritis. Infectious and inflammatory etiologies may present this picture. 2. Diffuse concentric thickening of the bladder wall that may be secondary to urinary tract infection or increased trabeculation. Additionally, there is perirenal inflammatory stranding. 3. No evidence of metastatic disease to the abdomen pelvis. Dictated and Authenticated by: Abran Matias MD. Ordering:RABIA Gutiérrez MD
[2020-11-19 19:30] LABS: Bacteria Negative HPF (Negative); C & S Indicated? No; Casts Negative LPF (Negative); Crystals Negative HPF (Negative); Epithelial Cells Negative HPF (Negative); Mucus Negative (Negative); Other Cells Negative (Negative); WBC Negative HPF (0-5)
--- NOTE | 2020-11-19 19:45 | RT.EKG_ITS ---
APPROVED REPORT Exam: Resting ECG Patient Location: E HR:149 bpm ECG Measurements Heart Rate 149 AXIS OK [id number] P [id number] QRSd 82 QRS 0 QT 317 T 103 QTc 499 Conclusion Atrial fibrillation...V-rate 89-172, irreg A-activity Repolarization abnormality, prob rate related...ST dep, T neg, tachycardia Likely a-flutter not fib. Rate related ST changes. Normal [place]
[2020-11-19 20:16] LABS: Source Nasopharynx
[2020-11-19] MEDS: Metoprolol 5 MG/5 ML VIAL IVP ×2 (20:50→21:10)
[2020-11-19] MEDS: Metoprolol CR 100 MG TABCR PO (20:57)
[2020-11-19] MEDS: MAGNESIUM SULFATE 1 GM/100 ML BAG IVPB (21:14)
[2020-11-19] MEDS: PIPERACILLIN/TAZO 3.375 GM in Normal Saline 50 ML IVPB (21:20)
[2020-11-19 21:28] LABS: COVID-19 PCR Negative (Negative); Influenza A PCR Negative (Negative); Influenza B PCR Negative (Negative); RSV PCR Negative (Negative)
[2020-11-19] MEDS: Normal Saline 500 ML IV (21:30)
[2020-11-19 22:52] LABS: TSH (W/Ref FT4) 3.71 uIU/mL (0.36-3.74)
[2020-11-19 22:54] LABS: NT-proBNP 9558 pg/mL (<300)
[2020-11-19 22:57] LABS: Troponin I < 0.05 ng/mL (<0.06)
[2020-11-20] VITALS (38 sets, daily range): BP systolic 110–136; BP diastolic 63–83; PULSE 58–156; RESP 12–23; TEMP 36.5–36.8; O2SAT 95–99
--- NOTE | 2020-11-20 | DI.CT_ITS ---
EXAM: CT ABDOMEN PELVIS CTA CLINICAL HISTORY: questuion of ischemic enteritis. TECHNIQUE: Imaging Protocol: Axial computed tomography images with coronal and sagittal reformatted images were created and reviewed CONTRAST MATERIAL: Intravenous: Omnipaque 350 Contrast volume:100 ml Oral: None COMPARISON: CT CT ABDOMEN PELVIS W from 11/19/2020 FINDINGS: Visualized lung bases are clear. No pleural effusions. ABDOMEN: There is no ascites. VASCULAR: The abdominal aorta is calcified. There is lack of normal tapering distally but no promine nt aneurysm. Mild arterial megaly of both common iliac arteries is noted and there is fusiform aneur ysmal dilatation of the distal right common iliac artery which exhibits a diameter of 1.5 cm. There is no evidence of significant stenosis in the iliac arteries. The external iliac arteries exhibit no rmal diameter and are patent as are the common femoral arteries. There is no evidence of aneurysm no r occlusion of the internal iliac arteries. The inferior mesenteric artery is patent. Celiac artery is patent as are the branches. The superior mesenteric artery exhibits calcified and noncalcified plaque at its origin and proximal 1st cm. Farzaneh roximately 50 percent stenosis at this level. There is no evidence of atherosclerotic disease more d istally in the SMA and no evidence of embolus within this vessel. Renal arteries: There is a solitary renal artery on each side with early branching of the right renal artery approximately 1 centimeter distal to its origin. There is heavily calcified plaque at the or igin of both renal arteries without poststenotic dilatation. The amount of stenosis is estimated at less than 50 percent bilaterally. No evidence of fibromuscular dysplasia nor abnormalities more dist ally in the renal arteries. Both kidneys exhibit normal size. LIVER: Benign cysts are again noted in the liver, unchanged in size and number. There are no new met astatic lesions in the liver, given the history here. GALLBLADDER/BILIARY: No obvious gallbladder pathology. CBD is not dilated. PANCREAS: No evidence of pancreatic mass nor dilatation of the pancreatic duct. SPLEEN: Spleen is not enlarged. There are no intrasplenic lesions. Splenic and portal veins are lacey nt. ADRENALS: There are no significant adrenal masses. KIDNEYS: Parapelvic cysts in left kidney are again noted. No solid renal masses.. LYMPH NODES: There is no retroperitoneal nor para-aortic adenopathy. No obvious mesenteric masses. ABDOMINAL WALL/GI: No evidence of significant anterior abdominal wall hernia. Diffuse the thickening of the rectal and rectosigmoid noted consistent with colitis pattern at this level as well as some t hickened density in the rectum, either related to mass or internal hemorrhoids. No evidence of diver ticulitis. PELVIS: LYMPH NODES: Small lymph nodes. GI: Appendix is not seen as separate structure.. URINARY BLADDER: Diffuse uniform thickening of the bladder wall is noted. REPRODUCTIVE: Prostate is mildly enlarged. Seminal vesicles unremarkable. OSSEOUS: No significant osseous lesions. IMPRESSION: 1. There is thickening of the rectum and rectosigmoid wall as well as significant thickening of the w all of the urinary bladder. Correlation with any interval radiation therapy recommended since the CT scan of May 2020. 2. Heavily calcified abdominal aorta and iliac arteries with fusiform aneurysm of the distal right co mmon iliac artery exhibiting diameter 1.6 cm. 3. Atherosclerotic plaque at the origin of the celiac and SMA and renal arteries but with less than 5 0 percent stenosis of these vessels. Minimal involvement of the celiac. Approximately 50 percent na rrowing of the proximal SMA (no evidence of embolus in the SMA). The inferior mesenteric artery is p atent. 4. Benign cysts in the liver remain stable. No metastatic appearing lesions in the liver, given the history here. Also parapelvic cysts in the left kidney again noted. RADIATION DOSE DELIVERED: 698.2mGy.cm Total DLP 698.2mGy.cm Total DLP 698.2mGy.cm Total DLP 698.2mGy.cm Total DLP 698.2mGy.cm Total DLP 698.2mGy.cm Total DLP DATA REPOSITORY: All CT scans at this facility are submitted to the National Radiology Data Registry (NRDR) Dose Index Registry (DIR) with the [employer] (ACR). RADIATION OPTIMIZATION: All CT scans at this facility use at least one of these dose optimization te chniques: automated exposure control; mA and/or kV adjustment per patient size (includes targeted exa ms where dose is matched to clinical indication); or iterative reconstruction.
[2020-11-20] MEDS: Normal Saline 1,000 ML 125 ML IV (00:07)
[2020-11-20] MEDS: Enoxaparin 40 MG/0.4 ML SYR SC (00:14)
[2020-11-20] MEDS: CIPROFLOXACIN 400 MG/200 ML BAG 200 MG IVPB ×3 (00:15→23:57)
--- NOTE | 2020-11-20 00:16 | W.PM.HP.N ---
Date of service: 11/20/20 Time of Service: 00:16 Assessment and Plan Assessment and plan (1) Abdominal pain: Status: Acute Assessment and plan: Likely connected to his SIRS. CT imaging with worsening rectal thickening as well as a questions of possible enteritis. Clinically, the patient does not have enteritis. Rectal thickening could be due to radiation proctitis, infectious proctitis, or progression of his rectal cancer. I am worried that this is clinically nearly obstructive. We will continue empiric antibiotic therapy initiated in the ED. Clinically, the patient does not appear septic. Consider rectal steroids if patient permits suppositories. General surgery is consulted. Patient has not previously been open to surgery. Palliative care is also consulted. (2) Rectal cancer: Status: Acute Assessment and plan: As above. Patient is s/p oral chemo and XRT. He had refused FOLFOX and surgery in the past. Current presentation could be indication of progression of his disease. Palliative care consulted. (3) Atrial flutter with rapid ventricular response: Status: Acute Assessment and plan: This could have multiple triggers - including underlying inflammatory process, dehydration, symptoms of alcohol withdrawal, pain, hypomagnesemia, and it is not clear to me that this is not what the patient does at baseline. Increase beta blockers. Replete magnesium, Monitor on tele with prn IV lopressor. (4) Coronary atherosclerosis of [place] coronary vessel: Status: Chronic Assessment and plan: s/p stent placement. R/o ACS. (5) Alcohol abuse: Status: Chronic Assessment and plan: Monitor for alcohol withdrawal with CIWA, prn PO/SL ativan. Banana bag daily. (6) Hypomagnesemia: Status: Acute Assessment and plan: Replete (7) Immunosuppression due to chronic steroid use: Status: Chronic Assessment and plan: Continue steroids (8) DVT prophylaxis: Status: Acute Assessment and plan: s/p 1 dose of lovenox. I am switching to heparin SC starting 24 hrs from now in case the patient does decide to have surgery. (9) Discharge planning issues: Status: Acute Assessment and plan: DNR/DNI Palliative care consulted. History of Present Illness History of Present Illness Chief Complaint: Abdominal pain Narrative: Mr Johnson is a 70 year old male with PMHx of rectal ca s/p XRT/capecitabine (patient had declined surgery and folfox therapy), CAD, paroxysmal Atrial flutter, s/p ablation, but recurrent since then, on ASA (refuses anticoagulation due to h/o excessive bleeding), h/o CVA, BPH, who is on chronic prednisone for RA, who presented to [facility] ED on 11/19/20 c/o abdominal pain. The pain is sharp, in lower abdomen/midline, started on Saturday and is worse today. The patient has not had a bowel movement or passed flatus since this started on Saturday. He denied nausea or fever. He has not eaten, but has been drinking water. He drinks alcohol - last drink on . He was seen for same in the ED on 11/18/20 and went home with improvement of symptoms. He returned to the ED on 11/19/20 because of worsening abdominal pain. His ED work-up this time revealed worsening rectal thickening, a question of enteritis on the preliminary read of his CT, and, per my discussion with general surgery, likely radiation changes noted in the bladder region. The patient was started on empiric antibiotics (initiation, zosyn, then changed to cipro/flagyl). Surgical consultation is planned to happen in am. Meanwhile, the patient developed rapid Aflutter while maintaining blood pressures. He denies chest pain, palpitations, dizziness. HRs responded to IV metoprolol and IV hydration. The patient refused digital rectal exam, but did permit a visual exam. He denies urinary symptoms. He determined his code status to be DNR/DNI. He states he has never had sx of alcohol withdrawal and drinks at least 3 drinks/day. He also smokes - 50 pack-years - and declines nicotine replacement therapy. Review of Systems All systems reviewed & are unremarkable except as noted in HPI and below [facility] Medical History Acute ill-defined cerebrovascular disease (08/29/00) Alcohol abuse heavy alcohol use-patient denies alcohol abuse. Atrial flutter 01/07 STRESS TEST NEG 2011;Ablation BPH (benign prostatic hyperplasia) (03/29/15) Cervical radicular pain (05/21/14) Severe DJD with multilevel foraminal narrowing MRI 05/13 Chronic obstructive pulmonary disease (05/29/16) Patient denies having COPD. Chronic pain disorder (05/15/12) 1/9/18; CONTROLLED SUBSTANCE AGREEMENT 01/27/19 Contract no longer needed/cancelled per TB-kb Coronary atherosclerosis of [place] coronary vessel a.STEMI (inf) b. RCA stent c. a.flutter Depressive disorder situational Dizziness Duodenal ulcer disease Essential hypertension (07/30/13) Patient denies hx of HTN. States he's on Metoprolol for rate control. Hearing loss A.S. Hx TIA/stroke w/o resid Hyperlipidemia Immunosuppression due to chronic steroid use Migraine with visual aura (03/29/15) Palliative care patient Paroxysmal atrial fibrillation Amber's disease Rheumatoid arthritis Smoker quit 09/04 Unilateral inguinal hernia right Surgical History Colonoscopy - MAC 06/03; neg Hx of heart artery stent Stent 2006 Ablation 2011 rectal fistula repair Status post reconstruction procedure Status post vasectomy vasc revision Family History Mother No problems noted. Father No problems noted. Brother No problems noted. Brother No problems noted. Brother No problems noted. Daughter No problems noted. Maternal Grandfather No problems noted. Paternal Grandfather No problems noted. Maternal Grandfather No problems noted. Paternal Grandfather No problems noted. Social History Smoking/Tobacco Use Status: Current-Occasional Tobacco Type: cigarettes Quit status: has quit before Second Hand Exposure: Yes Smoking risk assessment performed?: Yes Alcohol Intake: current Alcohol Intake frequency: 3 or more drinks per day Alcohol type: beer Drug use: Rarely Substance use type: marijuana Caregiver/Support person: Yes Household members: none Housing: apartment Communication Needs: Hard of Hearing Do you need help understanding health information?: Never Pets and animals: No Sexually active: No Do you think of yourself as: straight/heterosexual Current gender identity: male What is your relationship status?: How often do you talk on the phone with friends or family?: decline to answer How often do you get together with friends or relatives?: decline to answer How often do you attend hoahaoism or adventism services?: decline to answer Do you belong to any clubs or organized social groups?: decline to answer Panel score (0-1 are the most socially isolated patients): 0 What type of physical activity do you participate in: none Chary/Christianity: Declined Do you feel safe at home: Yes Do you feel safe in your relationship?: Yes Meds Home Medications and Allergies Home Medications Medication Instructions Recorded Confirmed Type aspirin [Ecotrin Low Strength] 81 mg PO .EVERY OTHER DAY tab-cap 12/04/12 11/19/20 History Rituxan 0 IV q6 months vial 07/31/13 09/27/20 History metoprolol tartrate 100 mg tablet 100 mg PO BID #180 tab-cap 11/30/19 11/19/20 Rx oxycodone 5 mg tablet 5 mg PO Q6H PRN #30 tab MDD 4 02/02/20 11/19/20 Rx naproxen 500 mg tablet 500 mg PO BID PRN #60 tab 02/04/20 11/19/20 Rx sennosides 8.6 mg capsule 8.6 mg PO BID PRN #60 cap 06/17/20 11/19/20 Rx silodosin 8 mg capsule 8 mg PO DAILY #30 cap 07/04/20 11/19/20 Rx morphine 15 mg capsule 15 mg PO ONCE HS cap 09/27/20 11/19/20 History prednisone 5 mg tablet 5 mg PO DAILY tab-cap 09/27/20 11/19/20 History Allergies Allergy/AdvReac Type Severity Reaction Status Date / Time terazosin AdvReac Intermediate Dizziness/L Verified 11/19/20 16:56 ightheade lisinopril AdvReac Mild COUGH Verified 11/19/20 16:56 atorvastatin AdvReac Unknown ?DIARRHEA Verified 11/19/20 16:56 Serotonin 5HT-3 Antagonists AdvReac Unknown Verified 11/19/20 16:56 sulfasalazine AdvReac Made RA Verified 11/19/20 16:56 worse tamsulosin [From Flomax] AdvReac Dizziness/L Verified 11/19/20 16:56 ightheade Exam Narrative Exam Narrative: General: pleasant middle-aged male who appears comfortable during my conversation with him Neurological: A&Ox3, no focal deficits Psychiatric: appropriate speech pattern/content Skin: Visible skin intact HEENT: Atraumatic, normocephalic, EOMI, dry MM, clear oropharynx, no submandibular or cervical lymphadenopathy, no goiter or JVD Cardiovascular: RRR, no m/r/g Lungs: CTAB Gastrointestinal: soft, mildly distended, tender suprapubically; + bowel sounds Genitourinary: visual exam does not show any hemorroids or prasanth blood; the patient refused digital rectal exam Extremities: no edema BLEs, wearing TEDs. Results Imaging Additional studies: CT abdomen/pelvis: 1. Compared to the prior CT scan of May 2020 there is now some thickening of the wall of the rectum and rectosigmoid, possibly significant. There is no regional lymphadenopathy in this region nor elsewhere in the abdomen and pelvis. There is no ascites 2. Uniform thickening of the urinary bladder wall is noted. 3. Multiple benign cysts in the liver remain stable. There are no metastatic appearing lesions in the liver, given the history here. 4. Parapelvic cyst left kidney are again noted. 5. Heavily calcified abdominal aorta and iliac arteries. 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 Of note: preliminary read states findings are consistent with enteritis: infectious vs inflammatory Labs Result diagrams: 11/19/20 17:20 11/19/20 17:20 Labs: Laboratory Results - last 24 hr 11/19/20 11/19/20 11/19/20 17:20 17:20 17:20 WBC 20.35 H D RBC 4.53 Hgb 15.6 Hct 43.5 MCV 96.0 H MCH 34.4 H MCHC 35.9 RDW 13.2 Plt Count 245 MPV 9.0 Immature Gran % 0.5 Neutrophils % 86.9 Band Neutrophils % Lymphocytes % 2.0 Atypical Lymphs % Monocytes % 9.6 Eosinophils % 0.7 Basophils % 0.3 Metamyelocytes % Myelocytes % Promyelocytes % Other Cells % Nucleated RBC % 0 Absolute Neutrophils 17.68 H Absolute Lymphocytes 0.41 L Absolute Monocytes 1.95 H Absolute Eosinophils 0.14 Absolute Basophils 0.06 RBC Morphology Polychromasia Hypochromasia Poikilocytosis Basophilic Stippling Anisocytosis Microcytosis Macrocytosis Spherocytes Tear Drop Cells Ovalocytes Stomatocytes [place] Bodies [place] Cells/Echinocytes Acanthocytes (Spur) Schistocytes VBG Lactate Sodium 128 L Potassium 3.8 Chloride 92 L Carbon Dioxide 26.7 Anion Gap 9.3 BUN 9 Creatinine 1.2 Estimated GFR/1.73 m2 >= 60.00 Glucose 139 H Calcium 8.9 Magnesium 1.5 L Total Bilirubin 1.1 H AST 18 ALT 35 Alkaline Phosphatase 69 Troponin I NT-Pro-B Natriuret Pep Total Protein 6.7 Albumin 3.3 L Lipase 45 TSH Urine Color Urine Clarity Urine pH Ur Specific [place] Urine Protein Urine Ketones Urine Blood Urine Nitrite Urine Bilirubin Urine Urobilinogen Ur Leukocyte Esterase Urine RBC Urine WBC Ur Epithelial Cells Urine Crystals Urine Bacteria Urine Casts Urine Mucus Urine Other Ur Culture Indicated? Urine Glucose COVID-19 Source SARS-CoV-2 (PCR) Influenza Type A (PCR) Influenza Type B (PCR) RSV (PCR) 11/19/20 11/19/20 11/19/20 18:45 18:45 19:51 WBC RBC Hgb Hct MCV MCH MCHC RDW Plt Count MPV Immature Gran % Neutrophils % Band Neutrophils % Lymphocytes % Atypical Lymphs % Monocytes % Eosinophils % Basophils % Metamyelocytes % Myelocytes % Promyelocytes % Other Cells % Nucleated RBC % Absolute Neutrophils Absolute Lymphocytes Absolute Monocytes Absolute Eosinophils Absolute Basophils RBC Morphology Polychromasia Hypochromasia Poikilocytosis Basophilic Stippling Anisocytosis Microcytosis Macrocytosis Spherocytes Tear Drop Cells Ovalocytes Stomatocytes [place] Bodies [place] Cells/Echinocytes Acanthocytes (Spur) Schistocytes VBG Lactate 1.7 H Sodium Cancelled Potassium Cancelled Chloride Cancelled Carbon Dioxide Cancelled Anion Gap Cancelled BUN Cancelled Creatinine Cancelled Estimated GFR/1.73 m2 Cancelled Glucose Cancelled Calcium Cancelled Magnesium Total Bilirubin Cancelled AST Cancelled ALT Cancelled Alkaline Phosphatase Cancelled Troponin I NT-Pro-B Natriuret Pep Total Protein Cancelled Albumin Cancelled Lipase TSH Urine Color Yellow Urine Clarity Clear Urine pH 6.0 Ur Specific [place] 1.010 Urine Protein Negative Urine Ketones Negative Urine Blood Moderate H Urine Nitrite Negative Urine Bilirubin Negative Urine Urobilinogen 0.2 Ur Leukocyte Esterase Negative Urine RBC 5-10 H Urine WBC Negative Ur Epithelial Cells Negative Urine Crystals Negative Urine Bacteria Negative Urine Casts Negative Urine Mucus Negative Urine Other Negative Ur Culture Indicated? No Urine Glucose Negative COVID-19 Source SARS-CoV-2 (PCR) Influenza Type A (PCR) Influenza Type B (PCR) RSV (PCR) 11/19/20 11/19/20 11/19/20 19:51 19:53 20:05 WBC Cancelled RBC Cancelled Hgb Cancelled Hct Cancelled MCV Cancelled MCH Cancelled MCHC Cancelled RDW Cancelled Plt Count Cancelled MPV Cancelled Immature Gran % Cancelled Neutrophils % Cancelled Band Neutrophils % Cancelled Lymphocytes % Cancelled Atypical Lymphs % Cancelled Monocytes % Cancelled Eosinophils % Cancelled Basophils % Cancelled Metamyelocytes % Cancelled Myelocytes % Cancelled Promyelocytes % Cancelled Other Cells % Cancelled Nucleated RBC % Cancelled Absolute Neutrophils Cancelled Absolute Lymphocytes Cancelled Absolute Monocytes Cancelled Absolute Eosinophils Cancelled Absolute Basophils Cancelled RBC Morphology Cancelled Polychromasia Cancelled Hypochromasia Cancelled Poikilocytosis Cancelled Basophilic Stippling Cancelled Anisocytosis Cancelled Microcytosis Cancelled Macrocytosis Cancelled Spherocytes Cancelled Tear Drop Cells Cancelled Ovalocytes Cancelled Stomatocytes Cancelled [place] Bodies Cancelled [place] Cells/Echinocytes Cancelled Acanthocytes (Spur) Cancelled Schistocytes Cancelled VBG Lactate Sodium Potassium Chloride Carbon Dioxide Anion Gap BUN Creatinine Estimated GFR/1.73 m2 Glucose Calcium Magnesium Cancelled Total Bilirubin AST ALT Alkaline Phosphatase Troponin I NT-Pro-B Natriuret Pep Total Protein Albumin Lipase TSH Urine Color Urine Clarity Urine pH Ur Specific [place] Urine Protein Urine Ketones Urine Blood Urine Nitrite Urine Bilirubin Urine Urobilinogen Ur Leukocyte Esterase Urine RBC Urine WBC Ur Epithelial Cells Urine Crystals Urine Bacteria Urine Casts Urine Mucus Urine Other Ur Culture Indicated? Urine Glucose COVID-19 Source Nasopharynx SARS-CoV-2 (PCR) Negative Influenza Type A (PCR) Negative Influenza Type B (PCR) Negative RSV (PCR) Negative 11/19/20 11/19/20 22:25 22:25 WBC RBC Hgb Hct MCV MCH MCHC RDW Plt Count MPV Immature Gran % Neutrophils % Band Neutrophils % Lymphocytes % Atypical Lymphs % Monocytes % Eosinophils % Basophils % Metamyelocytes % Myelocytes % Promyelocytes % Other Cells % Nucleated RBC % Absolute Neutrophils Absolute Lymphocytes Absolute Monocytes Absolute Eosinophils Absolute Basophils RBC Morphology Polychromasia Hypochromasia Poikilocytosis Basophilic Stippling Anisocytosis Microcytosis Macrocytosis Spherocytes Tear Drop Cells Ovalocytes Stomatocytes [place] Bodies [place] Cells/Echinocytes Acanthocytes (Spur) Schistocytes VBG Lactate Sodium Potassium Chloride Carbon Dioxide Anion Gap BUN Creatinine Estimated GFR/1.73 m2 Glucose Calcium Magnesium Total Bilirubin AST ALT Alkaline Phosphatase Troponin I < 0.05 NT-Pro-B Natriuret Pep 9558 H Total Protein Albumin Lipase TSH 3.71 Urine Color Urine Clarity Urine pH Ur Specific [place] Urine Protein Urine Ketones Urine Blood Urine Nitrite Urine Bilirubin Urine Urobilinogen Ur Leukocyte Esterase Urine RBC Urine WBC Ur Epithelial Cells Urine Crystals Urine Bacteria Urine Casts Urine Mucus Urine Other Ur Culture Indicated? Urine Glucose COVID-19 Source SARS-CoV-2 (PCR) Influenza Type A (PCR) Influenza Type B (PCR) RSV (PCR) Last Vital Signs Temp 36.4 C L 11/19/20 16:51 Pulse 116 H 11/19/20 21:10 Resp 16 11/19/20 16:51 BP 139/89 11/19/20 21:10 Pulse Ox 96 11/19/20 16:51 COVID-19 Screening Have you, or household traveled for leisure in last 14 days?: No Had IN PERSON contact w/suspected or confirmed C-19 person: No
[2020-11-20] MEDS: MAGNESIUM SULFATE 4 GM/100 ML BAG IVPB (00:32)
[2020-11-20] MEDS: Metoprolol 5 MG/5 ML VIAL IVP (01:25)
[2020-11-20] MEDS: THIAMINE 100 MG in Normal Saline 100 ML 200 MG IVPB (01:40)
[2020-11-20] MEDS: metroNIDAZOLE 500 MG/100 ML BAG 100 MG IVPB ×4 (01:41→19:35)
[2020-11-20] MEDS: MORPHine 4 MG/ML SYR IVP ×3 (03:20→10:21)
[2020-11-20 06:53] LABS: Lactate 0.9 mmol/L (0.6-1.4)
[2020-11-20 06:55] LABS: Abs Immature Grans 0.08 10^3/uL (0.0-0.06); Absolute Basophil Count 0.02 10^3/uL (0.0-0.2); Absolute Lymphocyte Count 0.51 10^3/uL (1.2-3.4); Basophils % 0.1; Eosinophils % 0.1; HCT 40.7 % (40.0-50.0); HGB 14.3 g/dL (13.5-17.5); Immature Grans % 0.5; Lymphocytes % 3.3; MCH 33.8 pg (27.0-33.0); MCHC 35.1 % (32.0-36.0); MCV 96.2 fL (80-95); MPV 9.1 fL (8.0-11.0); Monocytes % 8.8; Neutrophils % 87.2; Nucleated RBC 0 %; Platelet Count 217 10^3/uL (130-400); RBC 4.23 10^6/uL (4.36-5.78); RDW 13.2 % (11.8-14.1); RDW-SD 46.8 fL; WBC 15.52 10^3/uL (4.4-10.8)
[2020-11-20 06:57] LABS: Absolute Eosinophil Count 0.02 10^3/uL (0.0-0.7); Absolute Monocyte Count 1.37 10^3/uL (0.1-0.8); Absolute Neutrophil Count 13.53 10^3/uL (1.2-6.7)
[2020-11-20 07:17] LABS: Anion Gap 8.6 mmol/L (3-11); BUN 9 mg/dL (7-18); CO2 25.4 mmol/L (21.0-32.0); CREATININE 0.9 mg/dL (0.70-1.30); Chloride 100 mmol/L (98-107); Glucose 110 mg/dL (74-106); Magnesium 2.8 mg/dL (1.8-2.4); Potassium 3.6 mmol/L (3.5-5.1); Sodium 134 mmol/L (136-145)
[2020-11-20 07:18] LABS: Troponin I < 0.05 ng/mL (<0.06)
[2020-11-20] MEDS: predniSONE 5 MG TAB PO (08:11)
[2020-11-20] MEDS: Normal Saline Flush 10 ML SYR (08:12)
[2020-11-20] MEDS: Pantoprazole 40 MG VIAL IVP (08:12)
--- NOTE | 2020-11-20 09:33 | INITIAL_ITS ---
- If Service Date Differs Date of service: 11/20/20 Time of Service: 09:34 Care Management Initial Assess REASON FOR HOSPITALIZATION:: Abdominal pain PAST MEDICAL HISTORY/PAST SURGICAL HISTORY:: Medical History . Acute ill-defined cerebrovascular disease (08/29/00). Alcohol abuse. heavy alcohol use-patient denies alcohol abuse. Atrial flutter. 01/07 STRESS TEST NEG. 2011;Ablation. BPH (benign prostatic hyperplasia) (03/29/15). Cervical radicular pain (05/21/14). Severe DJD with multilevel foraminal narrowing MRI 05/13. Chronic obstructive pulmonary disease (05/29/16). Patient denies having COPD. Chronic pain disorder (05/15/12). 10/08/17; CONTROLLED SUBSTANCE AGREEMENT. 01/27/19 Contract no longer needed/cancelled per TB-kb. Coronary atherosclerosis of [place] coronary vessel. a.STEMI (inf) b. RCA stent c. a.flutter. Depressive disorder. situational. Dizziness. Duodenal ulcer disease. Essential hypertension (07/30/13). Patient denies hx of HTN. States he's on Metoprolol for rate control. Hearing loss. A.S. Hx TIA/stroke w/o resid. Hyperlipidemia. Immunosuppression due to chronic steroid use. Migraine with visual aura (03/29/15). Palliative care patient. Paroxysmal atrial fibrillation. Amber's disease. Rheumatoid arthritis. Smoker. quit 09/04. Unilateral inguinal hernia. right. Surgical History . Colonoscopy - MAC. 06/03; neg. Hx of heart artery stent. Stent 2006. Ablation 2011. rectal fistula repair. Status post reconstruction procedure. Status post vasectomy. vasc revision PREVIOUS FUNCTIONAL STATUS/SOCIAL/FAMILY SUPPORTS:: Gilbert lives alone in an apartment in [facility]. He has one daughter in [place] that he only sees about once a year. Gilbert has been and twice. He remains good friends with his second Morelia and describes her as a main source of suport. Gilbert has been disabled since the age of 63. 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 Gilbert remains independent with all care and activities and continues to drive. CURRENT FUNCTIONAL STATUS:: Gilbert was sitting up in bed when CM met with him. He was pleasant and agreeable to conversation. Gilbert shared that he is in a great deal of pain and that the doctors are still not sure exactly what is wrong. He had surgery in December for removal of a rectal mass but refused a colostomy. He has completed a course of radiation and oral chemotherapy. 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 He stated that it was alot of work, but that the donkeys were fun and he enjoyed it. ADVANCE DIRECTIVES:: None on file at [facility] Has patient been provided with info about the portal/API?: Yes Did the patient sign up for the portal?: No CODE STATUS:: DNR/DNI INSURANCE COVERAGE / FINANCIAL ISSUES:: Medicare. Financial Assist 100 CURRENT HOME/COMMUNITY SERVICES/EQUIPMENT:: none currently PRIMARY CARE PHYSICIAN:: Yonathan Boggs POTENTIAL DISCHARGE NEEDS:: Follow up with PCP and community providers and plan of care PATIENT/FAMILY EDUCATION NEEDS:: Discharge plan, limitations, follow up plan, Ask Me Three TRANSPORTATION:: via private vehicle with a friend PLAN:: Gilbert's discharge plan will be determined by the course of his illness. He may need surgery which he has refused thus far. If he is discharged without surgery he will likely return home with no services. He will follow up with his Oncology team and PCP and discharge plan of care. CM will continue to support Gilbert and assess for discharge planning concerns.
--- NOTE | 2020-11-20 09:46 | W.SURGCON ---
Date of service: 11/20/20 Time of Service: 09:46 Assessment and Plan Assessment and plan (1) Enteritis: Status: Acute Assessment and plan: Assessment with the abrupt onset of pain and the patient being in atrial A. fib flutter not on anticoagulants an embolic phenomenon would be a prime consideration. His CT scan was were read by one radiologist as showing enteritis. No pneumatosis is noted no evidence of perforation or free free fluid is noted. Second reading did not describe enteritis. He does have thickening of the rectosigmoid and rectum with thickening of the bladder wall adjacent to this which could represent progression of the disease versus postradiation change. Plan patient is currently appellate palliative care patient and has been resistant to surgery. I have discussed diagnostic options with him which I feel would be a CTA. He is willing to undergo a CTA make further decisions based on the findings. He asks that his oncologist be informed. I have discussed this case with Dr. Kumar who is a hospitalist for him today. We will await the results of his CT angiogram History of Present Illness History of Present Illness Chief Complaint: Abdominal pain Narrative: This is a 70-year-old gentleman with a history of a low rectal cancer which was treated with chemo and radiation therapy. It was recommended that he have an abdominal perineal resection however the patient refused. His diagnosis was made in 2019. He is currently getting once a month rituximab. He states he had a rather abrupt onset of lower abdominal pain on the . He states on the he had 2 very small bowel movements but has not had a bowel movement since that time. He states the pain is constant made worse by motion and is not associated with vomiting. He has not been eating much. He has a history of atrial fibrillation/flutter. He has refused anticoagulation for this. Review of Systems All systems reviewed & are unremarkable except as noted in HPI and below [facility] Medical History Acute ill-defined cerebrovascular disease (08/29/00) Alcohol abuse heavy alcohol use-patient denies alcohol abuse. Atrial flutter 01/07 STRESS TEST NEG 2011;Ablation BPH (benign prostatic hyperplasia) (03/29/15) Cervical radicular pain (05/21/14) Severe DJD with multilevel foraminal narrowing MRI 05/13 Chronic obstructive pulmonary disease (05/29/16) Patient denies having COPD. Chronic pain disorder (05/15/12) 10/08/17; CONTROLLED SUBSTANCE AGREEMENT 01/27/19 Contract no longer needed/cancelled per TB-kb Coronary atherosclerosis of [place] coronary vessel a.STEMI (inf) b. RCA stent c. a.flutter Depressive disorder situational Dizziness Duodenal ulcer disease Essential hypertension (07/30/13) Patient denies hx of HTN. States he's on Metoprolol for rate control. Hearing loss A.S. Hx TIA/stroke w/o resid Hyperlipidemia Immunosuppression due to chronic steroid use Migraine with visual aura (03/29/15) Palliative care patient Paroxysmal atrial fibrillation Amber's disease Rheumatoid arthritis Smoker quit 09/04 Unilateral inguinal hernia right Surgical History Colonoscopy - MAC 06/03; neg Hx of heart artery stent Stent 2006 Ablation 2011 rectal fistula repair Status post reconstruction procedure Status post vasectomy vasc revision Family History Mother No problems noted. Father No problems noted. Brother No problems noted. Brother No problems noted. Brother No problems noted. Daughter No problems noted. Maternal Grandfather No problems noted. Paternal Grandfather No problems noted. Maternal Grandfather No problems noted. Paternal Grandfather No problems noted. Social History Smoking/Tobacco Use Status: Current-Occasional Tobacco Type: cigarettes Quit status: has quit before Second Hand Exposure: Yes Smoking risk assessment performed?: Yes Alcohol Intake: current Alcohol Intake frequency: 3 or more drinks per day Alcohol type: beer Drug use: Rarely Substance use type: marijuana Caregiver/Support person: Yes Household members: none Housing: apartment Communication Needs: Hard of Hearing Do you need help understanding health information?: Never Pets and animals: No Sexually active: No Do you think of yourself as: straight/heterosexual Current gender identity: male What is your relationship status?: How often do you talk on the phone with friends or family?: decline to answer How often do you get together with friends or relatives?: decline to answer How often do you attend jewish or sabianist services?: decline to answer Do you belong to any clubs or organized social groups?: decline to answer Panel score (0-1 are the most socially isolated patients): 0 What type of physical activity do you participate in: none Chary/Anabaptism: Declined Do you feel safe at home: Yes Do you feel safe in your relationship?: Yes Exam Resp Effort & Inspection: normal respiratory effort and able to speak in complete sentences Auscultation: clear to auscultation bilaterally Cardio Rate: other Rhythm: abnormal rhythm Heart Sounds: S1 normal and S2 normal Other: Irregularly irregular. Monitor shows atrial fib/flutter controlled response. GI Other: Nondistended tenderness with guarding in the right lower abdomen and mid lower abdomen. Patient refused rectal exam no external inflammation noted Results Last Vital Signs Temp 97.7 F 11/20/20 00:00 Pulse 88 11/20/20 03:00 Resp 19 11/20/20 03:01 BP 134/79 11/20/20 03:00 Pulse Ox 97 11/20/20 03:01 Labs Result diagrams: 11/20/20 06:45 11/20/20 06:45 Labs: Laboratory Results - last 24 hr 11/19/20 11/19/20 11/19/20 17:20 17:20 17:20 WBC 20.35 H D RBC 4.53 Hgb 15.6 Hct 43.5 MCV 96.0 H MCH 34.4 H MCHC 35.9 RDW 13.2 Plt Count 245 MPV 9.0 Immature Gran % 0.5 Neutrophils % 86.9 Band Neutrophils % Lymphocytes % 2.0 Atypical Lymphs % Monocytes % 9.6 Eosinophils % 0.7 Basophils % 0.3 Metamyelocytes % Myelocytes % Promyelocytes % Other Cells % Nucleated RBC % 0 Absolute Neutrophils 17.68 H Absolute Lymphocytes 0.41 L Absolute Monocytes 1.95 H Absolute Eosinophils 0.14 Absolute Basophils 0.06 RBC Morphology Polychromasia Hypochromasia Poikilocytosis Basophilic Stippling Anisocytosis Microcytosis Macrocytosis Spherocytes Tear Drop Cells Ovalocytes Stomatocytes [place] Bodies [place] Cells/Echinocytes Acanthocytes (Spur) Schistocytes VBG Lactate Sodium 128 L Potassium 3.8 Chloride 92 L Carbon Dioxide 26.7 Anion Gap 9.3 BUN 9 Creatinine 1.2 Estimated GFR/1.73 m2 >= 60.00 Glucose 139 H Calcium 8.9 Magnesium 1.5 L Total Bilirubin 1.1 H AST 18 ALT 35 Alkaline Phosphatase 69 Troponin I NT-Pro-B Natriuret Pep Total Protein 6.7 Albumin 3.3 L Lipase 45 TSH Urine Color Urine Clarity Urine pH Ur Specific [place] Urine Protein Urine Ketones Urine Blood Urine Nitrite Urine Bilirubin Urine Urobilinogen Ur Leukocyte Esterase Urine RBC Urine WBC Ur Epithelial Cells Urine Crystals Urine Bacteria Urine Casts Urine Mucus Urine Other Ur Culture Indicated? Urine Glucose COVID-19 Source SARS-CoV-2 (PCR) Influenza Type A (PCR) Influenza Type B (PCR) RSV (PCR) 11/19/20 11/19/20 11/19/20 18:45 18:45 19:51 WBC RBC Hgb Hct MCV MCH MCHC RDW Plt Count MPV Immature Gran % Neutrophils % Band Neutrophils % Lymphocytes % Atypical Lymphs % Monocytes % Eosinophils % Basophils % Metamyelocytes % Myelocytes % Promyelocytes % Other Cells % Nucleated RBC % Absolute Neutrophils Absolute Lymphocytes Absolute Monocytes Absolute Eosinophils Absolute Basophils RBC Morphology Polychromasia Hypochromasia Poikilocytosis Basophilic Stippling Anisocytosis Microcytosis Macrocytosis Spherocytes Tear Drop Cells Ovalocytes Stomatocytes [place] Bodies [place] Cells/Echinocytes Acanthocytes (Spur) Schistocytes VBG Lactate 1.7 H Sodium Cancelled Potassium Cancelled Chloride Cancelled Carbon Dioxide Cancelled Anion Gap Cancelled BUN Cancelled Creatinine Cancelled Estimated GFR/1.73 m2 Cancelled Glucose Cancelled Calcium Cancelled Magnesium Total Bilirubin Cancelled AST Cancelled ALT Cancelled Alkaline Phosphatase Cancelled Troponin I NT-Pro-B Natriuret Pep Total Protein Cancelled Albumin Cancelled Lipase TSH Urine Color Yellow Urine Clarity Clear Urine pH 6.0 Ur Specific [place] 1.010 Urine Protein Negative Urine Ketones Negative Urine Blood Moderate H Urine Nitrite Negative Urine Bilirubin Negative Urine Urobilinogen 0.2 Ur Leukocyte Esterase Negative Urine RBC 5-10 H Urine WBC Negative Ur Epithelial Cells Negative Urine Crystals Negative Urine Bacteria Negative Urine Casts Negative Urine Mucus Negative Urine Other Negative Ur Culture Indicated? No Urine Glucose Negative COVID-19 Source SARS-CoV-2 (PCR) Influenza Type A (PCR) Influenza Type B (PCR) RSV (PCR) 11/19/20 11/19/20 11/19/20 19:51 19:53 20:05 WBC Cancelled RBC Cancelled Hgb Cancelled Hct Cancelled MCV Cancelled MCH Cancelled MCHC Cancelled RDW Cancelled Plt Count Cancelled MPV Cancelled Immature Gran % Cancelled Neutrophils % Cancelled Band Neutrophils % Cancelled Lymphocytes % Cancelled Atypical Lymphs % Cancelled Monocytes % Cancelled Eosinophils % Cancelled Basophils % Cancelled Metamyelocytes % Cancelled Myelocytes % Cancelled Promyelocytes % Cancelled Other Cells % Cancelled Nucleated RBC % Cancelled Absolute Neutrophils Cancelled Absolute Lymphocytes Cancelled Absolute Monocytes Cancelled Absolute Eosinophils Cancelled Absolute Basophils Cancelled RBC Morphology Cancelled Polychromasia Cancelled Hypochromasia Cancelled Poikilocytosis Cancelled Basophilic Stippling Cancelled Anisocytosis Cancelled Microcytosis Cancelled Macrocytosis Cancelled Spherocytes Cancelled Tear Drop Cells Cancelled Ovalocytes Cancelled Stomatocytes Cancelled [place] Bodies Cancelled [place] Cells/Echinocytes Cancelled Acanthocytes (Spur) Cancelled Schistocytes Cancelled VBG Lactate Sodium Potassium Chloride Carbon Dioxide Anion Gap BUN Creatinine Estimated GFR/1.73 m2 Glucose Calcium Magnesium Cancelled Total Bilirubin AST ALT Alkaline Phosphatase Troponin I NT-Pro-B Natriuret Pep Total Protein Albumin Lipase TSH Urine Color Urine Clarity Urine pH Ur Specific [place] Urine Protein Urine Ketones Urine Blood Urine Nitrite Urine Bilirubin Urine Urobilinogen Ur Leukocyte Esterase Urine RBC Urine WBC Ur Epithelial Cells Urine Crystals Urine Bacteria Urine Casts Urine Mucus Urine Other Ur Culture Indicated? Urine Glucose COVID-19 Source Nasopharynx SARS-CoV-2 (PCR) Negative Influenza Type A (PCR) Negative Influenza Type B (PCR) Negative RSV (PCR) Negative 11/19/20 11/19/20 11/20/20 22:25 22:25 06:45 WBC RBC Hgb Hct MCV MCH MCHC RDW Plt Count MPV Immature Gran % Neutrophils % Band Neutrophils % Lymphocytes % Atypical Lymphs % Monocytes % Eosinophils % Basophils % Metamyelocytes % Myelocytes % Promyelocytes % Other Cells % Nucleated RBC % Absolute Neutrophils Absolute Lymphocytes Absolute Monocytes Absolute Eosinophils Absolute Basophils RBC Morphology Polychromasia Hypochromasia Poikilocytosis Basophilic Stippling Anisocytosis Microcytosis Macrocytosis Spherocytes Tear Drop Cells Ovalocytes Stomatocytes [place] Bodies [place] Cells/Echinocytes Acanthocytes (Spur) Schistocytes VBG Lactate Sodium 134 L Potassium 3.6 Chloride 100 Carbon Dioxide 25.4 Anion Gap 8.6 BUN 9 Creatinine 0.9 Estimated GFR/1.73 m2 >= 60.00 Glucose 110 H Calcium 8.0 L Magnesium 2.8 H Total Bilirubin AST ALT Alkaline Phosphatase Troponin I < 0.05 < 0.05 NT-Pro-B Natriuret Pep 9558 H Total Protein Albumin Lipase TSH 3.71 Urine Color Urine Clarity Urine pH Ur Specific [place] Urine Protein Urine Ketones Urine Blood Urine Nitrite Urine Bilirubin Urine Urobilinogen Ur Leukocyte Esterase Urine RBC Urine WBC Ur Epithelial Cells Urine Crystals Urine Bacteria Urine Casts Urine Mucus Urine Other Ur Culture Indicated? Urine Glucose COVID-19 Source SARS-CoV-2 (PCR) Influenza Type A (PCR) Influenza Type B (PCR) RSV (PCR) 11/20/20 11/20/20 06:45 06:45 WBC 15.52 H RBC 4.23 L Hgb 14.3 Hct 40.7 MCV 96.2 H MCH 33.8 H MCHC 35.1 RDW 13.2 Plt Count 217 MPV 9.1 Immature Gran % 0.5 Neutrophils % 87.2 Band Neutrophils % Lymphocytes % 3.3 Atypical Lymphs % Monocytes % 8.8 Eosinophils % 0.1 Basophils % 0.1 Metamyelocytes % Myelocytes % Promyelocytes % Other Cells % Nucleated RBC % 0 Absolute Neutrophils 13.53 H Absolute Lymphocytes 0.51 L Absolute Monocytes 1.37 H Absolute Eosinophils 0.02 Absolute Basophils 0.02 RBC Morphology Polychromasia Hypochromasia Poikilocytosis Basophilic Stippling Anisocytosis Microcytosis Macrocytosis Spherocytes Tear Drop Cells Ovalocytes Stomatocytes [place] Bodies [place] Cells/Echinocytes Acanthocytes (Spur) Schistocytes VBG Lactate 0.9 Sodium Potassium Chloride Carbon Dioxide Anion Gap BUN Creatinine Estimated GFR/1.73 m2 Glucose Calcium Magnesium Total Bilirubin AST ALT Alkaline Phosphatase Troponin I NT-Pro-B Natriuret Pep Total Protein Albumin Lipase TSH Urine Color Urine Clarity Urine pH Ur Specific [place] Urine Protein Urine Ketones Urine Blood Urine Nitrite Urine Bilirubin Urine Urobilinogen Ur Leukocyte Esterase Urine RBC Urine WBC Ur Epithelial Cells Urine Crystals Urine Bacteria Urine Casts Urine Mucus Urine Other Ur Culture Indicated? Urine Glucose COVID-19 Source SARS-CoV-2 (PCR) Influenza Type A (PCR) Influenza Type B (PCR) RSV (PCR)
[2020-11-20] MEDS: Normal Saline 500 ML IV (10:40)
[2020-11-20] MEDS: Omnipaque 350 MG/ML 100 ML BTL IJ (10:47)
[2020-11-20] MEDS: Normal Saline - Diluent 50 ML VIAL IV (10:47)
[2020-11-20] MEDS: Normal Saline Flush 10 ML SYR IVP ×2 (10:47→19:36)
--- NOTE | 2020-11-20 10:59 | PHACLINREV_ITS ---
Pharmacy Admission Review - Admission Clinical Review (Last Reviewed 11/20/20 @ 09:49 by Nas Black MD) Enteritis (Acute) Hypomagnesemia (Acute) Discharge planning issues (Acute) DVT prophylaxis (Acute) Atrial flutter with rapid ventricular response (Acute) Abdominal pain (Acute) Rectal cancer (Acute) terazosin Adverse Reaction (Intermediate, Verified 11/19/20 16:56) Dizziness/Lightheade lisinopril Adverse Reaction (Mild, Verified 11/19/20 16:56) COUGH atorvastatin Adverse Reaction (Unknown, Verified 11/19/20 16:56) ?DIARRHEA Serotonin 5HT-3 Antagonists Adverse Reaction (Unknown, Verified 11/19/20 16:56) sulfasalazine Adverse Reaction (Verified 11/19/20 16:56) Made RA worse tamsulosin [From Flomax] Adverse Reaction (Verified 11/19/20 16:56) Dizziness/Lightheade Height 5 ft 4 in Weight 66.7 kg ?Sepsis due to Enteritis, rapid A-flutter, Hx rectal CA - Comments Comments/Follow Ups: Transfer to /, daily Banana bag (CIWA zero), on Prednisone, Cipro/Flagyl IV. Blood cultures and urine pending. Surgical consult, Palliative consult. CT abdomen this morning: thickening of colon ?colitis and/or signs of his rectal malignancy. Patient does not take anticoagulants for his A- Fib, Did not want surgery during treatments of rectal cancer and is followed by Palliative care. Clarified MSContin order with retail pharmacy records, pain is 10/10 this morning. Follow pain management, IV Anbx, Patient's own med - Renal Dosing Renal Dosing: BUN 9 mg/dL (7-18) 11/20/20 06:45 Creatinine 0.9 mg/dL (0.70-1.30) 11/20/20 06:45 Medications needing adjustments: Reviewed (CrCl~65ml/min) - Anticoagulation Anticoagulation: Hgb 14.3 g/dL (13.5-17.5) 11/20/20 06:45 Hct 40.7 % (40.0-50.0) 11/20/20 06:45 Plt Count 217 10^3/uL (130-400) 11/20/20 06:45 Creatinine 0.9 mg/dL (0.70-1.30) 11/20/20 06:45 DVT Prohphylaxis: Reviewed Medications: Heparin (Lovenox x1, the Heparin ordered to start 11/22 in case surgery is an option) - Opiate Usage Evaluate Pain Scale/Pains Meds: Reviewed (MS IVP prn, MSContin, OxyIR) Scheduled Bowel Reg ordered if on Opiates?: No (has prn, will need RODERICK) - Relevant Labs Sodium 134 mmol/L (136-145) L 11/20/20 06:45 Potassium 3.6 mmol/L (3.5-5.1) 11/20/20 06:45 Chloride 100 mmol/L (98-107) 11/20/20 06:45 Magnesium 2.8 mg/dL (1.8-2.4) H 11/20/20 06:45 Electrolytes, C-Reactive P, ESR: Reviewed (ProBNp elevated 9558, WBC elevated but improved, patient is on Prednisone as well) - DM Control DM Control: Glucose 110 mg/dL (74-106) H 11/20/20 06:45 Insulin Dosing: N/A - Heart Failure/TX Heart Failure/TX: Troponin I < 0.05 ng/mL (<0.06) 11/20/20 06:45 NT-Pro-B Natriuret Pep 9558 pg/mL (<300) H 11/19/20 22:25 EF%, ANA's, B-Blockers, Diuretics: Reviewed (Metoprolol IVP prn, Metoprolol tartrate) - BP Control BP Control: Blood Pressure [Left Arm] 136/83 Blood Pressure 134/79 Blood Pressure 123/74 Blood Pressure 114/63 Blood Pressure 114/63 Blood Pressure 114/63 Blood Pressure 131/77 Blood Pressure 136/83 Blood Pressure 127/76 If elevated: Reviewed (Hr 60-160'S, has Metoprolol to cover episodes) - Qtc Review If Elevated: Reviewed (QTC 499, irregular HR, abnormal, tachy) - IV to PO Switch IV Medications: Reviewed (Cipro/Flagyl) - Current meds Current Medication Order Review: Reviewed (Patient's own Silodosin for BPH, nurse aware, will ask patient, was after hours admission)
--- NOTE | 2020-11-20 11:04 | DI.VRAD_ITS ---
PROCEDURE INFORMATION: Exam: CT Angiography Abdomen and Pelvis With Contrast Exam date and time: 11/20/2020 10:05 AM Age: 70 years old Clinical indication: Condition or disease; Other: Sepsis due to enteritis TECHNIQUE: Imaging protocol: Computed tomographic angiography of the abdomen and pelvis with contrast material. 3D rendering (Not supervised by radiologist): MIP and/or 3D reconstructed images were created by the technologist. COMPARISON: CT ABDOMEN PELVIS W 11/19/2020 6:37 PM FINDINGS: Aorta: Atheromatous calcification. No aortic aneurysm identified. Celiac trunk and mesenteric arteries: Dense atheromatous calcification at the origin of the celiac artery and the SMA. Mild, less than 50% diameter reduction of the origin of the SMA. Renal arteries: Dense atheromatous calcification at the origin of the single bilateral renal arteries. Early branching of the right renal artery. Mild, less than 50% diameter reduction of the origin of the bilateral renal arteries. Right iliac arteries: Ectatic right common iliac artery. Right common iliac artery measures approximately 1.6 cm in diameter. Left iliac arteries: No occlusion or significant stenosis. Liver: Stable water density lesions in the liver consistent with benign cysts. Gallbladder and bile ducts: Unremarkable. No calcified stones. No ductal dilation. Pancreas: Unremarkable. No mass. No ductal dilation. Spleen: Unremarkable. No splenomegaly. Adrenal glands: Unremarkable. No mass. Kidneys and ureters: Parapelvic left renal cysts. Stomach and bowel: Progression of circumferential edema the wall of the sigmoid colon and upper rectum, consistent with colitis. Stable fluid-filled distended loop of small bowel in left lower quadrant anteriorly measuring approximately 2.3 cm in diameter. Fecalized content in several loops of ileum, consistent with enteritis. Irregularity of the wall of the rectum, could be due to patient's known rectal malignancy. Correlate clinically. Appendix: No evidence of appendicitis. Intraperitoneal space: Stable mild diffuse mesenteric edema. Lymph nodes: Unremarkable. No enlarged lymph nodes. Urinary bladder: Stable diffuse thickening of the wall of the urinary bladder. Reproductive: Stable prostatic enlargement. Surgical clips in the right scrotum Bones/joints: Degenerative arthritis in the spine Soft tissues: Unremarkable. IMPRESSION: 1. Progression circumferential thickening of the wall of the sigmoid colon consistent with colitis. 2. Irregular thickening of the wall of the rectum could represent rectal malignancy. Correlate clinically. 3. Stable diffuse mesenteric edema. 4. Diffuse atheromatous calcification with less than 50% diameter reduction bilateral renal arteries and SMA origin Dictated and Authenticated by: Margarita Nathan MD. Ordering:HEBER Lovell MD
--- NOTE | 2020-11-20 12:18 | NUR.NOTE ---
11/19/2020 1 liter NS given over 1 hour-the first liter -per provider-verbal order. she was having trouble ordering what she wanted in the computor.Nursing Note:
[2020-11-20 13:20] LABS: Troponin I < 0.05 ng/mL (<0.06)
[2020-11-20] MEDS: Thiamine 100 MG TAB PO (13:20)
[2020-11-20] MEDS: Folic Acid 1 MG TAB PO (13:20)
[2020-11-20] MEDS: oxyCODONE 5 MG TAB PO ×2 (14:50→22:55)
[2020-11-20] MEDS: Acetaminophen 325 MG TAB 650 MG PO ×2 (14:50→22:55)
--- NOTE | 2020-11-20 15:30 | NUR.NOTE ---
Nursing Note: At 1400 on 11/20/20, this RN received report from Dariela Persaud RN regarding the pt. At 1419 on 11/20/20, the pt. was transferred from ICU to Med/Surg per MD order. Pt. was settled in and oriented to room 231. VS were obtained; VSS. Pain level was assessed and pt. was medicated for pain. Head to toe assessment was performed. See worklist for more information. RN will reassess as necessary.
[2020-11-20] MEDS: Senna TAB 1 TAB PO (15:51)
[2020-11-20] MEDS: Polyethylene Glycol 3350 17 GM PACKET PO (15:51)
[2020-11-20 16:37] LABS: Osmolality, Urine 205 mOsm/kg (150-1,150)
[2020-11-21] VITALS (11 sets, daily range): BP systolic 120–145; BP diastolic 76–97; PULSE 69–149; RESP 16–20; TEMP 35.1–36.9; O2SAT 94–100
[2020-11-21] MEDS: MORPHine 4 MG/ML SYR IVP ×5 (02:33→18:24)
[2020-11-21] MEDS: metroNIDAZOLE 500 MG/100 ML BAG 100 MG IVPB ×4 (02:34→19:49)
[2020-11-21] MEDS: Normal Saline Flush 10 ML SYR IVP ×5 (02:34→20:49)
[2020-11-21 07:27] LABS: Abs Immature Grans 0.11 10^3/uL (0.0-0.06); Absolute Lymphocyte Count 0.41 10^3/uL (1.2-3.4); Absolute Monocyte Count 1.26 10^3/uL (0.1-0.8); Basophils % 0.1; Eosinophils % 0.4; HCT 38.1 % (40.0-50.0); HGB 13.1 g/dL (13.5-17.5); Immature Grans % 0.8; Lymphocytes % 3.1; MCH 33.2 pg (27.0-33.0); MCHC 34.4 % (32.0-36.0); MCV 96.5 fL (80-95); MPV 9.4 fL (8.0-11.0); Monocytes % 9.4; Neutrophils % 86.2; Nucleated RBC 0 %; Platelet Count 201 10^3/uL (130-400); RBC 3.95 10^6/uL (4.36-5.78); RDW 13.2 % (11.8-14.1); RDW-SD 47.7 fL; WBC 13.37 10^3/uL (4.4-10.8)
[2020-11-21 07:29] LABS: Absolute Basophil Count 0.01 10^3/uL (0.0-0.2); Absolute Eosinophil Count 0.05 10^3/uL (0.0-0.7); Absolute Neutrophil Count 11.52 10^3/uL (1.2-6.7)
[2020-11-21 07:43] LABS: ALT 20 U/L (16-63); AST 13 U/L (15-37); Albumin 2.3 g/dL (3.4-5.0); Alkaline Phosphatase 59 U/L (46-116); Anion Gap 7.3 mmol/L (3-11); BUN 7 mg/dL (7-18); Bilirubin, Total 0.6 mg/dL (0.2-1.0); CO2 26.7 mmol/L (21.0-32.0); CREATININE 0.9 mg/dL (0.70-1.30); Chloride 97 mmol/L (98-107); Glucose 99 mg/dL (74-106); Potassium 3.5 mmol/L (3.5-5.1); Sodium 131 mmol/L (136-145); Total Protein 5.5 g/dL (6.4-8.2)
--- NOTE | 2020-11-21 08:16 | DI.RAD_ITS ---
EXAM: XR ABD FLAT UPRIGHT PA CHEST CLINICAL HISTORY: fu abd pain. TECHNIQUE: 2D digital imaging was performed. COMPARISON: CR,XR XR ABDOMEN FLAT UPRIGHT from 11/18/2020. Yesterday's CT scan was also reviewed. FINDINGS: Heart size upper normal. Mediastinum not widened. Lungs are clear. No pleural effusions. No pulmo nary edema. Vascular calcification is noted in the carotid arteries on both sides of the neck. In the abdomen there is no free air. The colon is filled with air with the exception of the mid-lowe r sigmoid which is collapsed. Round calcification left side of the pelvis is noted which is probably a phlebolith and is unchanged. There is no evidence of small-bowel obstruction on today's upright f ilm. IMPRESSION: 1. No significant pulmonary findings. No pleural effusions. 2. Air-filled colon. No small bowel obstruction. The colon is air-filled proximal to the rectosigmo id. The rectosigmoid was noted to be edematous on yesterday's CT scan. Please see that separate rep ort. DATA REPOSITORY: RADIATION DOSE DELIVERED:
[2020-11-21] MEDS: Pantoprazole 40 MG VIAL IVP (08:31)
[2020-11-21] MEDS: predniSONE 5 MG TAB PO (08:33)
[2020-11-21] MEDS: Thiamine 100 MG TAB PO (08:33)
[2020-11-21] MEDS: Folic Acid 1 MG TAB PO (08:33)
--- NOTE | 2020-11-21 09:28 | W.PM.PROGNOT ---
Date of Service Date of service: 11/21/20 Time of Service: 09:28 Assessment and Plan Assessment and plan (1) Enteritis: Status: Acute Assessment and plan: Assessment is colitis involving the distal sigmoid and rectum with some surrounding fat stranding between the bladder and the rectum with some wall thickening in the bladder. Plan patient is clinically improved although his exact diagnosis has elluded to CT scans. Inflammatory process involving his rectosigmoid seems to be the most likely diagnosis which appears to be responding to his current antibiotic regimen. An abdominal series today showed gastritis colon down to the rectosigmoid colon but there is not gross distention of the proximal colon. Patient states he feels like he may have a bowel movement today and is not anxious to undergo endoscopy. I advised him that if he does not he may need a sigmoidoscopy. Subjective Subjective Interval history since last seen: Still has some lower abdominal pain better than yesterday however. Has not had a bowel movement. Exam GI Other: Patient is afebrile with positive bowel sounds and his abdominal exam is much improved from yesterday there are no peritoneal signs there is some tenderness to deep palpation in the lower abdomen. Objective Last Vital Signs Temp 98.1 F 11/21/20 08:38 Pulse 85 11/21/20 08:38 Resp 18 11/21/20 08:38 BP 131/81 11/21/20 08:38 Pulse Ox 100 11/21/20 08:38 Laboratory Results - last 24 hr 11/19/20 11/20/20 11/21/20 18:45 12:55 06:50 WBC RBC Hgb Hct MCV MCH MCHC RDW Plt Count MPV Immature Gran % Neutrophils % Lymphocytes % Monocytes % Eosinophils % Basophils % Nucleated RBC % Absolute Neutrophils Absolute Lymphocytes Absolute Monocytes Absolute Eosinophils Absolute Basophils Sodium 131 L Potassium 3.5 Chloride 97 L Carbon Dioxide 26.7 Anion Gap 7.3 BUN 7 Creatinine 0.9 Estimated GFR/1.73 m2 >= 60.00 Glucose 99 Calcium 8.0 L Total Bilirubin 0.6 AST 13 L ALT 20 Alkaline Phosphatase 59 Troponin I < 0.05 Total Protein 5.5 L Albumin 2.3 L Urine Osmolality 205 11/21/20 06:50 WBC 13.37 H RBC 3.95 L Hgb 13.1 L Hct 38.1 L MCV 96.5 H MCH 33.2 H MCHC 34.4 RDW 13.2 Plt Count 201 MPV 9.4 Immature Gran % 0.8 Neutrophils % 86.2 Lymphocytes % 3.1 Monocytes % 9.4 Eosinophils % 0.4 Basophils % 0.1 Nucleated RBC % 0 Absolute Neutrophils 11.52 H Absolute Lymphocytes 0.41 L Absolute Monocytes 1.26 H Absolute Eosinophils 0.05 Absolute Basophils 0.01 Sodium Potassium Chloride Carbon Dioxide Anion Gap BUN Creatinine Estimated GFR/1.73 m2 Glucose Calcium Total Bilirubin AST ALT Alkaline Phosphatase Troponin I Total Protein Albumin Urine Osmolality
[2020-11-21] MEDS: Polyethylene Glycol 3350 17 GM PACKET PO (10:00)
--- NOTE | 2020-11-21 10:15 | PGE_ITS ---
Date of Service Date of service: 11/21/20 Time of Service: 10:15 Assessment and Plan Assessment and plan (1) Enteritis: Status: Acute Assessment and plan: Improvement in abd pain. WBC count trending down. Infectious vs ischemic? Previous mildly elevated lactate level normalized. Cont Cipro and Flagyl IV. (2) Alcohol abuse: Status: Chronic Assessment and plan: He has been monitored for withdrawal; no CIWA scoring. Will stop withdrawal monitoring and reinstate if signs/sxs dictate. (3) Atrial flutter with rapid ventricular response: Status: Acute Assessment and plan: Rate controlled. On metoprolol 75mg Q6H; will change back to his home dose of metoprolol tartrate 100mg BID. Has declined anticoagulation per cardiology note. (4) Coronary atherosclerosis of [place] coronary vessel: Status: Chronic Assessment and plan: Denies CP. (5) Rectal cancer: Status: Acute Assessment and plan: Previous radiation Tx. rectosigmoid colon with thickened dorsey; radiation changes and possibly inflammation/infection. Maintain soft BM's. He endorses using Senna and prune juice at home and intermittent use of Metamucil. Will initiate daily Miralax and cont Senna and prune juice. (6) Hyponatremia: Status: Acute Assessment and plan: 1L IV NS at 100ml/hr with 20meq K+ (K+ is low normal). Monitor. Subjective Subjective Patient reports: no new complaints, pain is less, tolerating a regular diet and afebrile; denies bowel movement (Pt notes bowel activity), nausea, vomiting and shortness of breath Exam Const General: cooperative and no acute distress Nutritional Appearance: average body habitus Orientation: alert and oriented x3 Eyes Sclera: sclerae normal Pupils: PERRL Resp Effort & Inspection: normal respiratory effort Auscultation: clear to auscultation bilaterally Cardio Jugular venous pressure: no JVD Other: Irreg Irreg GI Palpation: soft and tender (mild tenderness in lower abd w/o guarding/rebound) Auscultation: normal bowel sounds Extrem General: normal to inspection, no pedal edema and no calf tenderness Objective Last Vital Signs Temp 36.7 C 11/21/20 08:38 Pulse 85 11/21/20 08:38 Resp 18 11/21/20 08:38 BP 131/81 11/21/20 08:38 Pulse Ox 100 11/21/20 08:38 Laboratory Results - last 24 hr 11/19/20 11/20/20 11/21/20 18:45 12:55 06:50 WBC RBC Hgb Hct MCV MCH MCHC RDW Plt Count MPV Immature Gran % Neutrophils % Lymphocytes % Monocytes % Eosinophils % Basophils % Nucleated RBC % Absolute Neutrophils Absolute Lymphocytes Absolute Monocytes Absolute Eosinophils Absolute Basophils Sodium 131 L Potassium 3.5 Chloride 97 L Carbon Dioxide 26.7 Anion Gap 7.3 BUN 7 Creatinine 0.9 Estimated GFR/1.73 m2 >= 60.00 Glucose 99 Calcium 8.0 L Total Bilirubin 0.6 AST 13 L ALT 20 Alkaline Phosphatase 59 Troponin I < 0.05 Total Protein 5.5 L Albumin 2.3 L Urine Osmolality 205 11/21/20 06:50 WBC 13.37 H RBC 3.95 L Hgb 13.1 L Hct 38.1 L MCV 96.5 H MCH 33.2 H MCHC 34.4 RDW 13.2 Plt Count 201 MPV 9.4 Immature Gran % 0.8 Neutrophils % 86.2 Lymphocytes % 3.1 Monocytes % 9.4 Eosinophils % 0.4 Basophils % 0.1 Nucleated RBC % 0 Absolute Neutrophils 11.52 H Absolute Lymphocytes 0.41 L Absolute Monocytes 1.26 H Absolute Eosinophils 0.05 Absolute Basophils 0.01 Sodium Potassium Chloride Carbon Dioxide Anion Gap BUN Creatinine Estimated GFR/1.73 m2 Glucose Calcium Total Bilirubin AST ALT Alkaline Phosphatase Troponin I Total Protein Albumin Urine Osmolality
--- NOTE | 2020-11-21 10:47 | PDOC.CMPRO ---
- If Service Date Differs Date of service: 11/21/20 Time of Service: 10:47 Care Management Progress Note S/O: Gilbert was lying in bed when CM met with him. At first he asked to be excused because he needed to use the bathroom. When CM returned some time later, Gilbert stated that it was still not a good time to meet as he was in a lot of pain. When asked, he informed CM that he had been medicated but it hadn't taken effect yet. Gilbert stated that he was not having a good day. I don't have many good days anymore. CM will continue to follow. A: Gilbert is a 70 year old man admitted on 11/19/20 with sepsis P:Gilbert's discharge plan will be determined by the course of his illness. He may need surgery which he has refused thus far. If he is discharged without surgery he will likely return home with no services. He will follow up with his Oncology team and PCP and discharge plan of care. CM will continue to support Gilbert and assess for discharge planning concerns.
[2020-11-21] MEDS: CIPROFLOXACIN 400 MG/200 ML BAG 200 MG IVPB (11:48)
[2020-11-21] MEDS: POTASSIUM CHLORIDE/0.9% NACL 1,000 ML 100 MEQ IV (11:48)
[2020-11-21] MEDS: Senna TAB 1 TAB PO (11:56)
--- NOTE | 2020-11-21 13:48 | W.NUTRFU ---
Date of service: 11/21/20 Time of Service: 13:48 Nutritional Follow up NOTE: 70 year old male admitted with abdominal pain, s/p treatment for rectal cancer. BMI wnl for age and has been stable > 6 months. Following and tolerating full liquid diet. Does not appear at nutritional risk at this time. Will continue to follow. Time Spent in Nutritional Counseling and Treatment: 0
[2020-11-21] MEDS: Metoprolol 50 MG TAB 150 MG PO (19:48)
[2020-11-21] MEDS: Metoprolol 5 MG/5 ML VIAL IVP (20:50)
[2020-11-21] MEDS: oxyCODONE 5 MG TAB PO (22:44)
[2020-11-22] VITALS (10 sets, daily range): BP systolic 119–148; BP diastolic 63–96; PULSE 64–172; RESP 18–22; TEMP 36–37.2; O2SAT 92–99
[2020-11-22] MEDS: CIPROFLOXACIN 400 MG/200 ML BAG 200 MG IVPB ×3 (00:26→23:46)
[2020-11-22] MEDS: Normal Saline 500 ML IV (00:27)
[2020-11-22] MEDS: Normal Saline Flush 10 ML SYR IVP ×7 (02:00→23:45)
[2020-11-22] MEDS: metroNIDAZOLE 500 MG/100 ML BAG 100 MG IVPB ×4 (02:30→19:26)
[2020-11-22 06:35] LABS: Abs Immature Grans 0.09 10^3/uL (0.0-0.06); Absolute Basophil Count 0.02 10^3/uL (0.0-0.2); Absolute Eosinophil Count 0.02 10^3/uL (0.0-0.7); Absolute Lymphocyte Count 0.37 10^3/uL (1.2-3.4); Absolute Monocyte Count 1.33 10^3/uL (0.1-0.8); Basophils % 0.2; Eosinophils % 0.2; HCT 37.8 % (40.0-50.0); HGB 13.2 g/dL (13.5-17.5); Immature Grans % 0.7; MCHC 34.9 % (32.0-36.0); MCV 97.4 fL (80-95); MPV 9.6 fL (8.0-11.0); Monocytes % 10.7; Neutrophils % 85.2; Nucleated RBC 0 %; Platelet Count 200 10^3/uL (130-400); RBC 3.88 10^6/uL (4.36-5.78); RDW 12.9 % (11.8-14.1); RDW-SD 46.1 fL; WBC 12.44 10^3/uL (4.4-10.8)
[2020-11-22 06:57] LABS: Anion Gap 7.4 mmol/L (3-11); BUN 5 mg/dL (7-18); CO2 25.6 mmol/L (21.0-32.0); CREATININE 0.9 mg/dL (0.70-1.30); Calcium 8.3 mg/dL (8.5-10.1); Chloride 100 mmol/L (98-107); Glucose 111 mg/dL (74-106); Potassium 3.5 mmol/L (3.5-5.1); Sodium 133 mmol/L (136-145)
[2020-11-22] MEDS: oxyCODONE 5 MG TAB PO ×5 (07:13→23:44)
[2020-11-22] MEDS: Polyethylene Glycol 3350 17 GM PACKET PO (08:00)
[2020-11-22] MEDS: Pantoprazole 40 MG VIAL IVP (08:01)
[2020-11-22] MEDS: Thiamine 100 MG TAB PO (08:01)
[2020-11-22] MEDS: Heparin 5,000 UNITS/ML VIAL 5000 UNITS SC ×2 (08:01→19:57)
[2020-11-22] MEDS: predniSONE 5 MG TAB PO (08:02)
[2020-11-22] MEDS: Metoprolol 50 MG TAB 150 MG PO ×2 (08:02→19:28)
[2020-11-22] MEDS: Senna TAB 1 TAB PO (08:02)
[2020-11-22] MEDS: Folic Acid 1 MG TAB PO (08:02)
--- NOTE | 2020-11-22 12:54 | W.PM.PROGNOT ---
Date of Service Date of service: 11/22/20 Time of Service: 09:55 Assessment and Plan Assessment and plan (1) Enteritis: Status: Acute Assessment and plan: Likely infectious but ischemic not entirely ruled out; CTA abd did not show any arterial obstruction. WBC count improving. Cont Cipro and Flagyl. Feeling better after BMs (2) Atrial flutter with rapid ventricular response: Status: Acute Assessment and plan: Ventricular rate remains intermittently high; up to a brief 172 early this AM. Now in the low 80's. Cont Metoprolol; increased to 150mg BID Add Diltiazem if necessary. (3) Rectal cancer: Status: Acute Assessment and plan: Has significant narrowing of lower rectum; risk of obstruction. Now on Miralax daily. Senna prn. Prune juice daily. He is keenly aware of the need to avoid large/hard stools. Subjective Subjective Patient reports: no new complaints, pain is less, bowel movement (3 BMs yesterday; loose with large amount of gas.) and afebrile; denies blood in stool, nausea, vomiting and shortness of breath Exam Const General: cooperative and no acute distress Resp Effort & Inspection: normal respiratory effort Auscultation: clear to auscultation bilaterally Cardio Other: Irreg Irreg GI Inspection: normal to inspection Palpation: soft and tender (Mild in lower abd w/o guarding/rebound) Extrem General: no pedal edema and no calf tenderness Objective Last Vital Signs Temp 36.0 C L 11/22/20 11:29 Pulse 64 11/22/20 11:29 Resp 19 11/22/20 11:29 BP 119/75 11/22/20 11:29 Pulse Ox 97 11/22/20 11:29 Laboratory Results - last 24 hr 11/22/20 11/22/20 06:12 06:12 WBC 12.44 H RBC 3.88 L Hgb 13.2 L Hct 37.8 L MCV 97.4 H MCH 34.0 H MCHC 34.9 RDW 12.9 Plt Count 200 MPV 9.6 Immature Gran % 0.7 Neutrophils % 85.2 Lymphocytes % 3.0 Monocytes % 10.7 Eosinophils % 0.2 Basophils % 0.2 Nucleated RBC % 0 Absolute Neutrophils 10.60 H Absolute Lymphocytes 0.37 L Absolute Monocytes 1.33 H Absolute Eosinophils 0.02 Absolute Basophils 0.02 Sodium 133 L Potassium 3.5 Chloride 100 Carbon Dioxide 25.6 Anion Gap 7.4 BUN 5 L Creatinine 0.9 Estimated GFR/1.73 m2 >= 60.00 Glucose 111 H Calcium 8.3 L
[2020-11-22] MEDS: Potassium Chloride 20 MEQ TABCR PO ×2 (14:17→19:28)
[2020-11-22] MEDS: Mylanta Suspension 30 ML CUP PO ×2 (15:27→23:48)
--- NOTE | 2020-11-22 15:42 | CHAPLAIN ---
Yonathan was resting in the recliner when I visited. He was pleasant and engaged in a conversation, but did not reveal a lot of information. He said he has been in touch with family, but didn't elaborate. He lives on [address], not far from [facility]. I will continue to visit.
--- NOTE | 2020-11-22 17:06 | PDOC.CMPRO ---
- If Service Date Differs Date of service: 11/22/20 Time of Service: 17:06 Care Management Progress Note S/O: Gilbert was sitting up in his chair when CM met with him. He reported that he was feeling much better today than yesterday after he had a bowel movement, which had caused him severe pain. He is followed by Palliative care in the community, and is very happy with their support. He reported that he does not feel that he is ready for discharge today. Per provider, he may be ready to return home tomorrow. CM will continue to follow. A: Gilbert is a 70 year old man admitted on 11/19/20 with sepsis P:Gilbert's discharge plan will be determined by the course of his illness. He may need surgery which he has refused thus far. If he is discharged without surgery he will likely return home with no services. He will follow up with his Oncology team and PCP and discharge plan of care. CM will continue to support Gilbert and assess for discharge planning concerns.
[2020-11-23] VITALS (11 sets, daily range): BP systolic 134–155; BP diastolic 88–100; PULSE 63–176; RESP 17–20; TEMP 36.3–36.8; O2SAT 93–98
[2020-11-23] MEDS: metroNIDAZOLE 500 MG/100 ML BAG 100 MG IVPB ×2 (01:40→07:46)
[2020-11-23] MEDS: Normal Saline Flush 10 ML SYR IVP ×2 (01:40→08:09)
[2020-11-23 06:43] LABS: Abs Immature Grans 0.04 10^3/uL (0.0-0.06); Absolute Basophil Count 0.03 10^3/uL (0.0-0.2); Absolute Eosinophil Count 0.03 10^3/uL (0.0-0.7); Absolute Lymphocyte Count 0.45 10^3/uL (1.2-3.4); Absolute Monocyte Count 1.47 10^3/uL (0.1-0.8); Absolute Neutrophil Count 8.31 10^3/uL (1.2-6.7); Basophils % 0.3; Eosinophils % 0.3; HCT 37.1 % (40.0-50.0); HGB 13.1 g/dL (13.5-17.5); Immature Grans % 0.4; Lymphocytes % 4.4; MCHC 35.3 % (32.0-36.0); MCV 96.4 fL (80-95); MPV 9.5 fL (8.0-11.0); Monocytes % 14.2; Neutrophils % 80.4; Nucleated RBC 0 %; Platelet Count 236 10^3/uL (130-400); RBC 3.85 10^6/uL (4.36-5.78); RDW 12.8 % (11.8-14.1); RDW-SD 45.7 fL; WBC 10.33 10^3/uL (4.4-10.8)
[2020-11-23 06:54] LABS: BUN 5 mg/dL (7-18); CREATININE 0.8 mg/dL (0.70-1.30); Calcium 8.1 mg/dL (8.5-10.1); Chloride 99 mmol/L (98-107); Glucose 103 mg/dL (74-106); Potassium 3.8 mmol/L (3.5-5.1); Sodium 132 mmol/L (136-145)
[2020-11-23] MEDS: oxyCODONE 5 MG TAB PO ×4 (06:55→20:37)
[2020-11-23] MEDS: Pantoprazole 40 MG VIAL IVP (07:45)
[2020-11-23] MEDS: predniSONE 5 MG TAB PO (07:47)
[2020-11-23] MEDS: Potassium Chloride 20 MEQ TABCR PO ×2 (07:47→20:39)
[2020-11-23] MEDS: Thiamine 100 MG TAB PO (07:47)
[2020-11-23] MEDS: Metoprolol 50 MG TAB 150 MG PO ×2 (07:47→20:39)
[2020-11-23] MEDS: Folic Acid 1 MG TAB PO (07:47)
[2020-11-23] MEDS: Heparin 5,000 UNITS/ML VIAL 5000 UNITS SC ×2 (07:59→20:40)
--- NOTE | 2020-11-23 10:21 | W.PM.PROGNOT ---
Date of Service Date of service: 11/23/20 Time of Service: 09:29 Assessment and Plan Assessment and plan (1) Enteritis: Status: Acute Assessment and plan: WBC count has normalized. Etiology infectious vs ischemia. Ongoing discomfort; improved. Loose/watery stools; has only been on clear liquids, but also likely related to antibiotics. Will change to po flagyl and cipro in preparation for discharge. Advance diet. Oxycodone 5mg Q4H prn. He has been using his long-acting morphine only appx every other day at home. Declines needing long acing currently. Maintain soft to loose stool consistency d/t risk of obstruction. (2) Atrial flutter with rapid ventricular response: Status: Acute Assessment and plan: Ventricular rate under better control. Cont metoprolol. Monitoring electrolytes and replacing as necessary. Ensure adequate hydration. (3) Rectal cancer: Status: Acute Assessment and plan: Bowel regimen to maintain soft to loose stools given narrowed rectum / cancer and radiation changes. Subjective Subjective Patient reports: pain is less, tolerating liquids well and afebrile; denies nausea and shortness of breath Interval history since last seen: Describes generalized weakness but ambulating to bathroom w/o difficulty. He voices concern that he has no appetite; has only had clear liquids. Exam Const General: cooperative and no acute distress Nutritional Appearance: average body habitus Orientation: alert and oriented x3 Eyes Sclera: sclerae normal Pupils: PERRL Resp Effort & Inspection: normal respiratory effort Auscultation: clear to auscultation bilaterally Cardio Other: Irreg Irreg GI Palpation: soft and tender (lower abd) Auscultation: normal bowel sounds Extrem General: no pedal edema and no calf tenderness Objective Last Vital Signs Temp 36.5 C 11/23/20 07:50 Pulse 107 H 11/23/20 07:50 Resp 20 11/23/20 07:50 BP 143/91 H 11/23/20 07:50 Pulse Ox 97 11/23/20 07:50 Laboratory Results - last 24 hr 11/23/20 11/23/20 06:10 06:10 WBC 10.33 RBC 3.85 L Hgb 13.1 L Hct 37.1 L MCV 96.4 H MCH 34.0 H MCHC 35.3 RDW 12.8 Plt Count 236 MPV 9.5 Immature Gran % 0.4 Neutrophils % 80.4 Lymphocytes % 4.4 Monocytes % 14.2 Eosinophils % 0.3 Basophils % 0.3 Nucleated RBC % 0 Absolute Neutrophils 8.31 H Absolute Lymphocytes 0.45 L Absolute Monocytes 1.47 H Absolute Eosinophils 0.03 Absolute Basophils 0.03 Sodium 132 L Potassium 3.8 Chloride 99 Carbon Dioxide 23.0 Anion Gap 10.0 BUN 5 L Creatinine 0.8 Estimated GFR/1.73 m2 >= 60.00 Glucose 103 Calcium 8.1 L
[2020-11-23] MEDS: CIPROFLOXACIN 400 MG/200 ML BAG 200 MG IVPB (12:45)
[2020-11-23] MEDS: metroNIDAZOLE 500 MG TAB PO ×2 (14:37→20:39)
--- NOTE | 2020-11-23 16:26 | CHAPLAIN ---
Gilbert was resting in bed when I visited. He told me about his rectal cancer. and recent treatment. He blames himself for his current situation because he did not keep up with having colonoscopies and knew he had a problem but waited to see a doctor. He was diagnosed in January, but said he knew before that. Gilbert advocated for a different chemo and radiation treatment than was recommended, and opted not to have surgery. He said he was firm about that with the oncologist and told the oncologist that he is more interested in quality of life than quantity. When I asked Gilbert what he's able to do that he still enjoys, he said nothing, really. He is a palliative care patient and said he has opened up to Julianne Mtz NP, and that relationship is important to him. Gilbert has been three times, and is still close to his third , Hannah, and she'll be picking him up when he is discharged and Gilbert will stay with Hannah for a while. Gilbert has asked to stay here until his pain is better controlled. He may be discharged tomorrow. We talked about life seeming to be so unfair at times, and unpredictable.
--- NOTE | 2020-11-23 17:48 | PDOC.CMPRO ---
- If Service Date Differs Date of service: 11/23/20 Time of Service: 17:48 Care Management Progress Note S/O: Gilbert was lying in bed when CM met with him. He stated that he continues to have pain but that it is much more manageable than it was on Saturday. He has been able to have a BM. Gilbert admitted to being discouraged with the pain he is experiencing although he did not expound on it more than that. He shared with CM that he discovered yesterday when DARLYN Chowdhury was covering, that Julianne Chris, who sees him for Palliative, is Luciana's sister. He noted that it is a small world. A: Gilbert is a 70 year old man admitted on 11/19/20 with sepsis P:Gilbert will likely be discharged home with no new services. He will follow up with his Oncology team and PCP and discharge plan of care. Gilbert will transport with family or friends via private vehicle. CM will continue to support Gilbert and assess for discharge planning concerns.
[2020-11-23] MEDS: Ciprofloxacin 500 MG TAB PO (22:19)
[2020-11-24] MEDS: oxyCODONE 5 MG TAB PO ×2 (06:26→10:20)
[2020-11-24 07:23] VITALS: PULSE 104
[2020-11-24 07:56] VITALS: BP 139/87; PULSE 95; RESP 17; TEMP 36.5; O2SAT 98
[2020-11-24] MEDS: Mylanta Suspension 30 ML CUP PO (08:47)
[2020-11-24] MEDS: predniSONE 5 MG TAB PO (08:47)
[2020-11-24] MEDS: Potassium Chloride 20 MEQ TABCR PO (08:47)
[2020-11-24] MEDS: Metoprolol 50 MG TAB 150 MG PO (08:47)
[2020-11-24] MEDS: Thiamine 100 MG TAB PO (08:47)
--- NOTE | 2020-11-24 09:11 | W.PM.DS.N ---
Date of service: 11/24/20 Time of Service: 09:11 DS: Diagnosis Discharge Diagnosis (1) Enteritis: Status: Acute (2) Atrial flutter with rapid ventricular response: Status: Acute (3) Rectal cancer: Status: Acute Discharge Plan Disposition Patient Disposition: HOME Condition: Improving Discharge Details Reason For Visit: SEPSIS DUE TO ENTERITIS; RAPID ATRIAL FLUTTER Admit Date/Time: 11/19/20 21:49 Admit Provider: Karlee Carty Attending Provider: Karlee Carty Primary Care Provider: Yonathan Boggs Hospital Course Hospital Course: Mr Johnson is a 70 year old male with PMHx of rectal ca s/p XRT/capecitabine (patient had declined surgery and folfox therapy), CAD, paroxysmal Atrial flutter, s/p ablation, but recurrent since then, on ASA (refuses anticoagulation due to h/o excessive bleeding), h/o CVA, BPH, who is on chronic prednisone for RA, who presented to [facility] ED on 11/19/20 c/o abdominal pain. The pain described as sharp, in lower abdomen/midline, started on Saturday and has worsened. The patient has not had a bowel movement or passed flatus since this started on Saturday. He denied nausea or fever. He has not eaten, but has been drinking water. He drinks alcohol - last drink on . He was seen for same in the ED on 11/18/20 and went home with improvement of symptoms. He returned to the ED on 11/19/20 because of worsening abdominal pain. His ED work-up this time revealed worsening rectal thickening, a question of enteritis on the preliminary read of his CT, and, per my discussion with general surgery, likely radiation changes noted in the bladder region. The patient was started on empiric antibiotics (initiation, zosyn, then changed to cipro/flagyl). Surgical consultation is planned to happen in am. Meanwhile, the patient developed rapid Aflutter while maintaining blood pressures. He denies chest pain, palpitations, dizziness. HRs responded to IV metoprolol and IV hydration. The patient refused digital rectal exam, but did permit a visual exam. He denies urinary symptoms. He determined his code status to be DNR/DNI. He states he has never had sx of alcohol withdrawal and drinks at least 3 drinks/day. He also smokes - 50 pack-years - and declines nicotine replacement therapy. Etiology of the enteritis likely either infectious vs ischemic. General surgery evaluated and CTA abd/pelvis performed that showed thickening of the rectum and rectosigmoid wall as well as significant thickening of the wall of the urinary bladder. Atherosclerotic plaque at the origin of the celiac and SMA and renal arteries but with less than 50 percent stenosis of these vessels. Minimal involvement of the celiac. Approximately 50 percent narrowing of the proximal SMA (no evidence of embolus in the SMA). The inferior mesenteric artery is patent. Low flow ischemia still on the differential given afib with RVR. His initially elevated lactate normalized readily and his WBC count steadily decreased and returned to normal. The day prior to d/c his third IV site became nonfunctional so antibiotics were changed to oral Cipro and Flagyl but he then declined further antibiotics. His diet was advanced, though he had little appetite. No nausea or emesis. Marinol offered but he plans on using MJ at home for appetite stimulation. His metoprolol was increased and Diltiazem initiated for heart rate control. Discussed, on several occasions, the need to keep BMs soft. He states he does this at home with increased water intake, as needed Senna and Metamucil. Discussed using Mild of Magnesia or magnesium citrate if necessary. He has essentially weaned off his long-acting morphine and using only oxycodone. F/U with oncology has been arranged. Home Meds and New Rx's Prescriptions: New diltiazem HCl 120 mg Capsule,Extended Release 24hr 240 mg PO DAILY Qty: 30 RF: 0 metoprolol tartrate 100 mg tablet See Rx Instructions .ROUTE .COMPLEX Qty: 90 RF: 0 Continued prednisone 5 mg tablet 5 mg PO DAILY RF: 0 silodosin [Rapaflo] 8 mg capsule 8 mg PO DAILY Qty: 30 RF: 6 senna 8.6 mg capsule 8.6 mg PO BID PRN (Reason: constipation) Qty: 60 RF: 0 aspirin [Ecotrin Low Strength] 81 MG tablet,delayed release (DR/EC) 81 mg PO .EVERY OTHER DAY RF: 0 Rituxan 10 MG/1 ML concentrate 0 IV q6 months RF: 0 Hold Instructions: Home Medication placed on hold at Doctor's office oxycodone 5 mg tablet 5 mg PO Q6H MDD 4 PRN (Reason: pain) Qty: 30 RF: 0 naproxen 500 mg tablet 500 mg PO BID PRN (Reason: pain) Qty: 60 RF: 1 Discontinued morphine 15 mg capsule 15 mg PO ONCE HS RF: 0 metoprolol tartrate 100 mg tablet 100 mg PO BID Qty: 180 RF: 4 Discharge Instructions Activity:: Activity as Tolerated Equipment/Supplies:: No Equipment Needed Diet:: As Tolerated DS: Summary Time Spent with Patient providing and/or coordinating discharge services: Greater than 30 minutes Status at Discharge Functional status at discharge: independent ambulation Overall status at discharge: patient is progressing back to baseline Mental Status: mental status grossly normal Speech and Movement: speech and movement normal Mood: congruent mood Affect: normal affect Exam Const General: cooperative and no acute distress Nutritional Appearance: average body habitus Orientation: alert and oriented x3 Resp Effort & Inspection: normal respiratory effort Auscultation: clear to auscultation bilaterally Cardio Other: Irreg Irreg GI Palpation: soft and tender (Mild in lower abd) Auscultation: normal bowel sounds Extrem General: no pedal edema and no calf tenderness Psych Mental Status: mental status grossly normal Speech and Movement: speech and movement normal Mood: congruent mood Affect: normal affect DS: Data Vitals/I&O Vitals and I&O: Vital Signs Temperature 36.5 C 11/24/20 07:56 Temperature Source Temporal Artery Scan 11/24/20 07:56 Pulse 95 H 11/24/20 07:56 Pulse Rhythm Irregular 11/24/20 08:50 Pulse 86 11/20/20 14:00 Respiratory Rate 17 11/24/20 07:56 Respiratory Effort Non-Labored 11/24/20 08:50 Respiratory Depth Normal 11/24/20 08:50 Respiratory Pattern Normal 11/24/20 08:50 Blood Pressure 139/87 11/24/20 07:56 Blood Pressure Mean 86 11/20/20 09:00 Blood Pressure Position Supine 11/20/20 00:00 Pulse Oximetry 98 11/24/20 07:56 Oxygen Delivery Method Room Air 11/24/20 07:56 Oxygen Flow Rate 0 11/24/20 07:56 Pain Level 5 11/24/20 07:56 Comment 11/23/20 23:49 Intake & Output 11/23/20 11/23/20 11/24/20 11:59 23:59 11:59 Intake Total 550 / 880 330 / 880 Balance 550 / 880 330 / 880 Weight 68.1 kg 68 kg Intake: IV 310 / 400 90 / 400 Oral 240 / 480 240 / 480 Other: Urine Color Yellow Urine Appearance Clear Clear Comment unable to assess, contaminated w/ stools. pt reports pain in pelvic area when voiding OOB TO BR X; 4 ON NOC SHIFT. DOES NOT USE HATS PROVIDED FOR TOILET per pt report Stool Size Large Stool Characteristics Liquid Voiding Methods Toilet Toilet Toilet Data Completed and Pending Labs on day of discharge: Preliminary micro results at discharge 11/19/20 21:05 Blood Culture - Preliminary Blood NO GROWTH 96 HOURS 11/19/20 21:05 Blood Culture - Preliminary Blood NO GROWTH 96 HOURS [facility] Medical History Acute ill-defined cerebrovascular disease (08/29/00) Alcohol abuse heavy alcohol use-patient denies alcohol abuse. Atrial flutter 01/07 STRESS TEST NEG 2011;Ablation BPH (benign prostatic hyperplasia) (03/29/15) Cervical radicular pain (05/21/14) Severe DJD with multilevel foraminal narrowing MRI 05/13 Chronic obstructive pulmonary disease (05/29/16) Patient denies having COPD. Chronic pain disorder (05/15/12) 10/08/17; CONTROLLED SUBSTANCE AGREEMENT 01/27/19 Contract no longer needed/cancelled per TB-kb Coronary atherosclerosis of [place] coronary vessel a.STEMI (inf) b. RCA stent c. a.flutter Depressive disorder situational Dizziness Duodenal ulcer disease Essential hypertension (07/30/13) Patient denies hx of HTN. States he's on Metoprolol for rate control. Hearing loss A.S. Hx TIA/stroke w/o resid Hyperlipidemia Immunosuppression due to chronic steroid use Migraine with visual aura (03/29/15) Palliative care patient Paroxysmal atrial fibrillation Amber's disease Rheumatoid arthritis Smoker quit 09/04 Unilateral inguinal hernia right Surgical History Colonoscopy - MAC 06/03; neg Hx of heart artery stent Stent 2006 Ablation 2011 rectal fistula repair Status post reconstruction procedure Status post vasectomy vasc revision Family History Mother No problems noted. Father No problems noted. Brother No problems noted. Brother No problems noted. Brother No problems noted. Daughter No problems noted. Maternal Grandfather No problems noted. Paternal Grandfather No problems noted. Maternal Grandfather No problems noted. Paternal Grandfather No problems noted. Social History Smoking/Tobacco Use Status: Current-Occasional Tobacco Type: cigarettes Quit status: has quit before Second Hand Exposure: Yes Smoking risk assessment performed?: Yes Alcohol Intake: current Alcohol Intake frequency: 3 or more drinks per day Alcohol type: beer Drug use: Rarely Substance use type: marijuana Caregiver/Support person: Yes Household members: none Housing: apartment Communication Needs: Hard of Hearing Do you need help understanding health information?: Never Pets and animals: No Sexually active: No Do you think of yourself as: straight/heterosexual Current gender identity: male What is your relationship status?: How often do you talk on the phone with friends or family?: decline to answer How often do you get together with friends or relatives?: decline to answer How often do you attend religion or gnosticism services?: decline to answer Do you belong to any clubs or organized social groups?: decline to answer Panel score (0-1 are the most socially isolated patients): 0 What type of physical activity do you participate in: none Chary/Jehovah'S Witness: Declined Do you feel safe at home: Yes Do you feel safe in your relationship?: Yes
[2020-11-24] MEDS: dilTIAZem CD 120 MG CAPCR 240 MG PO (10:20)
--- NOTE | 2020-11-24 18:54 | PDOC.CMDIS ---
- If Service Date Differs Date of service: 11/24/20 Time of Service: 18:54 LACE Index Scoring Tool - Questions: Length of Stay (in days): 4 - 6 Acuity (Admit via E.D.?): Yes Comorbidities: Chronic Pulmonary Disease, Any Tumor E.D. Visits: 1 - Answers: Total Score: 13 Risk of Readmission: High Risk Care Management Discharge Reason for Hospitalization: Abdominal pain Discharge Plan: Gilbert will be discharged home with no new services. He will follow up with his Oncology team and PCP and discharge plan of care. Gilbert will transport with family or friends via private vehicle. Patient/Family Education Needs: Discharge plan, limitations, follow up plan, Ask Me Three
== END 2020-11-24 11:18 | disposition home or self-care (01) | DRG 392 ==
LOC: ER 20:41 → ICU 23:17 → MS 11-20 14:16
PROVIDERS: Family Medicine; Surgery; Admitting Provider Internal Medicine; Emergency Provider Physician Assistant; PCP Emergency Medicine; Visit Provider Internal Medicine
DX: A09 Infectious gastroenteritis and colitis, unspecified (principal); C20 Malignant neoplasm of rectum; I48.92 Unspecified atrial flutter; D84.821 Immunodeficiency due to drugs; E87.1 Hypo-osmolality and hyponatremia; I25.10 Atherosclerotic heart disease of native coronary artery without angina pectoris; Z95.5 Presence of coronary angioplasty implant and graft; E83.42 Hypomagnesemia; T38.0X5A Adverse effect of glucocorticoids and synthetic analogues, initial encounter; F10.10 Alcohol abuse, uncomplicated; Z66 Do not resuscitate; Z79.82 Long term (current) use of aspirin; Z86.73 Personal history of transient ischemic attack (TIA), and cerebral infarction without residual deficits; M06.9 Rheumatoid arthritis, unspecified; N40.0 Benign prostatic hyperplasia without lower urinary tract symptoms; J44.9 Chronic obstructive pulmonary disease, unspecified; G89.29 Other chronic pain; I25.2 Old myocardial infarction; F32.9 Major depressive disorder, single episode, unspecified; H91.90 Unspecified hearing loss, unspecified ear; E78.5 Hyperlipidemia, unspecified; G43.109 Migraine with aura, not intractable, without status migrainosus; I48.0 Paroxysmal atrial fibrillation; F17.210 Nicotine dependence, cigarettes, uncomplicated
CPT/HCPCS: 36415; 80048; 80053; 83690; 83935; 87040; 87637; 93005; 96361; 96365; 96368; 96375; 96376; 99221; 99223; 99231; 99232; 99239; 99252; 99285; J1650; 74022; 74174; 74177; 81003; 81015; 83605; 83735; 83880; 84443; 84484; 85025; 87086; 93010; J0744; J1644; J2270; J2543; J3475; J3490; J7512

== ENCOUNTER → 2021-01-16 14:28 | Outpatient (BNVA) | payer MEDICARE, SELFPAY | PROVIDERS: PCP Emergency Medicine; Referring Provider Emergency Medicine; Visit Provider Nurse Practitioner Gerontology | DX: C20 Malignant neoplasm of rectum (principal); R97.20 Elevated prostate specific antigen [PSA]; N40.1 Benign prostatic hyperplasia with lower urinary tract symptoms | CPT/HCPCS: 99443 ==

== ENCOUNTER → 2021-03-27 15:11 | Outpatient (BNVA) | payer MEDICARE, SELFPAY | PROVIDERS: PCP Emergency Medicine; Referring Provider Emergency Medicine; Visit Provider Nurse Practitioner Gerontology | DX: C20 Malignant neoplasm of rectum (principal); R97.20 Elevated prostate specific antigen [PSA] | CPT/HCPCS: 99442 ==

== ENCOUNTER → 2021-06-29 09:23 | Outpatient (BNVA) | payer MEDICARE, SELFPAY | PROVIDERS: PCP Emergency Medicine; Referring Provider Emergency Medicine; Visit Provider Nurse Practitioner Gerontology | DX: C20 Malignant neoplasm of rectum (principal); R97.20 Elevated prostate specific antigen [PSA] | CPT/HCPCS: 99442 ==

== ENCOUNTER → 2021-10-02 12:28 | Outpatient (BNVA) | payer MEDICARE, SELFPAY | PROVIDERS: PCP Emergency Medicine; Referring Provider Emergency Medicine; Visit Provider Nurse Practitioner Gerontology | DX: R39.198 Other difficulties with micturition (principal); C20 Malignant neoplasm of rectum; R97.20 Elevated prostate specific antigen [PSA] | CPT/HCPCS: 99443 ==

== ENCOUNTER → 2022-01-01 08:04 | Outpatient (BNVA) | payer MEDICARE, SELFPAY | PROVIDERS: PCP Family Medicine; Referring Provider Family Medicine; Visit Provider Nurse Practitioner Gerontology | DX: R69 Illness, unspecified (principal) ==

== ENCOUNTER 2022-02-20 08:54 | Outpatient (REF) | payer MEDICARE, SELFPAY | END 2022-02-20 08:55 | disposition home or self-care (01) | LOC: RPT 08:54 ==